=== PATIENT | male | born 1965 | race Caucasian/White ===

== ENCOUNTER → 2020-02-28 08:42 | Outpatient (BNVA) | payer MEDICAID, SELFPAY | PROVIDERS: PCP Family Medicine; Visit Provider Student in an Organized Health Care Education/Training Program | DX: Z76.89 Persons encountering health services in other specified circumstances (principal) ==

== ENCOUNTER 2020-02-29 13:45 | Outpatient (REF) | payer MEDICAID, SELFPAY ==
--- NOTE | 2020-02-29 14:01 | XR_ITS ---
EXAMINATION: XR KNEE, RIGHT XR KNEE, LEFT CLINICAL INFORMATION: Bilateral knee pain. COMPARISON: None TECHNIQUE: 3 views each knee. FINDINGS: RIGHT KNEE: There is no visible acute fracture, dislocation or subluxation. There is loss of medial and patellofemoral compartment joint space with superior patellar spurring. Mild calcification of medial cartilage is noted. No abnormal joint effusion seen. LEFT KNEE: There is mild reduction in medial and patellofemoral compartment joint space with periarticular spurring. No visible acute fracture, dislocation or subluxation seen. No abnormal joint effusion seen. There is superior patella spurring. There are no loose bodies. XR/XR knee LT 3V IMPRESSION: Degenerative changes medial and patellofemoral compartments both knees. No loose bodies, bony erosive changes seen. There is no joint effusion. There is mild chondrocalcinosis medial compartment right knee.
--- NOTE | 2020-02-29 14:01 | XR_ITS ---
EXAMINATION: XR KNEE, RIGHT XR KNEE, LEFT CLINICAL INFORMATION: Bilateral knee pain. COMPARISON: None TECHNIQUE: 3 views each knee. FINDINGS: RIGHT KNEE: There is no visible acute fracture, dislocation or subluxation. There is loss of medial and patellofemoral compartment joint space with superior patellar spurring. Mild calcification of medial cartilage is noted. No abnormal joint effusion seen. LEFT KNEE: There is mild reduction in medial and patellofemoral compartment joint space with periarticular spurring. No visible acute fracture, dislocation or subluxation seen. No abnormal joint effusion seen. There is superior patella spurring. There are no loose bodies. XR/XR knee RT 3V IMPRESSION: Degenerative changes medial and patellofemoral compartments both knees. No loose bodies, bony erosive changes seen. There is no joint effusion. There is mild chondrocalcinosis medial compartment right knee.
[2020-03-04 11:23] LABS: Vitamin D 25-OH, D2 5 ng/mL; Vitamin D 25-OH, D3 30 ng/mL; Vitamin D 25-OH, Total 35 ng/mL (30-100)
== END 2020-02-29 13:46 | disposition home or self-care (01) ==
LOC: HO.LAB 13:45
PROVIDERS: Visit Provider Student in an Organized Health Care Education/Training Program
DX: M25.562 Pain in left knee (principal); M25.561 Pain in right knee; M11.261 Other chondrocalcinosis, right knee
CPT/HCPCS: 73562; 82306

== ENCOUNTER → 2020-04-18 11:26 | Outpatient (BNV) | payer MEDICAID, SELFPAY | PROVIDERS: PCP Nurse Practitioner Family; Visit Provider Internal Medicine | DX: D75.1 Secondary polycythemia (principal); D69.6 Thrombocytopenia, unspecified; Z85.038 Personal history of other malignant neoplasm of large intestine | CPT/HCPCS: 99212; 99213; 99214 ==

== ENCOUNTER → 2020-12-15 12:50 | Outpatient (BNVA) | payer MEDICAID, SELFPAY | PROVIDERS: PCP Family Medicine; Visit Provider Nurse Practitioner Family | DX: M25.50 Pain in unspecified joint (principal) | CPT/HCPCS: 36415; 80053; 99212 ==

== ENCOUNTER 2020-12-15 14:15 | Outpatient (REF) | payer MEDICAID, SELFPAY ==
[2020-12-15 15:07] LABS: Alanine Aminotransferase 60 U/L (0-40); Albumin Level 4.6 g/dL (3.5-5.0); Alkaline Phosphatase 50 U/L (39-117); Anion Gap 13 (12-20); Aspartate Amino Transferase 33 U/L (5-37); Bilirubin Total 0.5 mg/dL (0.0-1.0); Blood Urea Nitrogen 24 mg/dL (9-16); Calcium 9.8 mg/dL (8.4-10.2); Carbon Dioxide 24 mmol/L (22-29); Chloride 106 mmol/L (96-108); Estimated Glomerular Filt Rate > 60; Glucose Random 104 mg/dL (60-115); Potassium 4.3 mmol/L (3.3-5.1); Sodium 139 mmol/L (135-145); Total Protein 7.9 g/dL (6.5-8.0)
== END 2020-12-15 14:16 | disposition home or self-care (01) ==
LOC: HO.LAB 14:15
PROVIDERS: Visit Provider Nurse Practitioner Family
DX: M25.50 Pain in unspecified joint (principal)
CPT/HCPCS: 36415; 80053

== ENCOUNTER 2021-01-06 08:25 | Outpatient (REF) | payer MEDICAID, SELFPAY ==
--- NOTE | ~2021-01-06 | XR_ITS ---
EXAMINATION: XR HAND, RIGHT CLINICAL INFORMATION: Effusion, right hand COMPARISON: 09/19/2019 TECHNIQUE: PA, lateral, and oblique views of the right hand. FINDINGS: There is swelling throughout the hand. Erosion at the tuft of the third digit distal phalanx noted. No additional acute osseous abnormality. No acute fracture. XR/XR hand RT min 3V IMPRESSION: New from prior, there is an erosion at the tip of the tuft of the third digit distal phalanx. Cannot exclude osteomyelitis versus interval posttraumatic change.
--- NOTE | ~2021-01-06 | US_ITS ---
EXAMINATION: US EXTREMITY NONVASCULAR CLINICAL INFORMATION: Right hand effusion. Dorsal right hand. COMPARISON: Concurrent right hand radiographs. TECHNIQUE: Grayscale and Doppler images were obtained through the dorsal aspect of the right hand in the region of the patient's complaint. FINDINGS: No abnormal soft tissue mass or fluid collection. No subcutaneous edema. Unremarkable-appearing muscle noted in the region of the patient's complaint. US/US extremity nonvascular IMPRESSION: Unremarkable examination.
--- NOTE | ~2021-01-06 | US_ITS ---
EXAMINATION: US ABDOMEN COMPLETE CLINICAL INFORMATION: Abnormal results of liver function studies. COMPARISON: Ultrasound abdomen 09/26/2019. CT abdomen and pelvis 01/09/2018. TECHNIQUE: Real-time imaging of the abdominal viscera. FINDINGS: PANCREAS: Normal. ABDOMINAL AORTA: The proximal, mid, and distal segments are normal in caliber. INFERIOR VENA CAVA: Visualized portions are normal. LIVER: The liver is normal in size. The liver contour is normal. Liver echotexture is increased probably representing fatty infiltration. There is a hypoechoic area adjacent to the gallbladder and in the periportal region, characteristic location of focal fatty sparing. No other focal lesion.. There is no intrahepatic biliary duct dilatation seen. GALLBLADDER: Normal. The gallbladder is physiologically distended without evidence of stones, sludge, polyps, wall thickening or pericholecystic fluid. COMMON BILE DUCT: Normal in caliber measuring 0.69 cm in diameter. RIGHT KIDNEY: Normal. No hydronephrosis. No renal calculi or focal parenchymal lesions. The kidney measures 11.8 cm in maximum dimension. LEFT KIDNEY: There is a heterogeneous area superior to the left kidney measuring 4.1 x 3.1 x 3.4 cm questionable for an exophytic renal or adrenal mass. No hydronephrosis or renal calculi. The kidney measures 10.8 cm in maximum dimension. SPLEEN: Normal. The spleen measures 10.8 cm in maximum dimension. FREE FLUID: None. US/US abdomen complete IMPRESSION: Echogenic liver suggestive of fatty infiltration. Newly appreciated 4.1 x 3.1 x 3.4 cm heterogeneous area superior to the left kidney questionable for an exophytic left renal mass or adrenal lesion. Follow-up CT scan recommended.
== END 2021-01-06 08:26 | disposition home or self-care (01) ==
LOC: HO.HMGCX 08:25
PROVIDERS: PCP Nurse Practitioner Family; Visit Provider Nurse Practitioner Family
DX: M25.441 Effusion, right hand (principal); R94.5 Abnormal results of liver function studies
CPT/HCPCS: 73130; 76700; 76882

== ENCOUNTER 2021-01-23 14:09 | Outpatient (REF) | payer MEDICAID, SELFPAY ==
--- NOTE | ~2021-01-23 | MR_ITS ---
EXAMINATION: MRI OF THE RIGHT HAND WITHOUT CONTRAST CLINICAL INFORMATION: Bump on the 1st digit. Evaluate distal 3rd digit. COMPARISON: Hand radiographs dated 01/06/2021 TECHNIQUE: Multiplanar MR imaging was obtained through the right hand without contrast on a 1.5 Marlen magnet. FINDINGS: In the medial and palmar soft tissues at the level of the thumb proximal phalangeal shaft, there is an amorphous focus of low T1 signal intensity and intermediate to low T2 signal intensity measuring 2.2 x 2.1 x 2.4 cm (AP x transverse x longitudinal), located primarily within the medial and palmar subcutaneous fat, though also interposed between the flexor tendon and proximal phalanx, extending into the more lateral subcutaneous fat. Surrounding soft tissues are normal in signal intensity. Subtle chronic osseous remodeling is suspected at the palmar cortex of the proximal phalanx (image 20/43 of series 7). No marrow edema signal or other osseous erosions in this region. No tenosynovitis or tendinosis. The A2 mauricio is slightly stretched as result of the mass. Mild osteoarthritis is evident at the 1st CMC joint with marginal osteophytes. MTP joints appear relatively well preserved. At the tuft of the long finger distal phalanx, there is loss of normal T1 signal (image 14/19 of series 6) in the region of the erosions seen on the prior radiograph. No significant abnormality on T2-weighted images in this region. No additional soft tissue lesions are identified at the hand, though sensitivity is somewhat limited by the absence of intravenous contrast. Additional areas of articular involvement would be difficult to exclude as this process does not appear to produce significant surrounding edema signal on T2-weighted images. MR/MR hand RT wo con IMPRESSION: 1. A 2.4 cm amorphous low signal intensity nodular focus in the medial and palmar soft tissues of the thumb at the level of the proximal phalanx, arising around the tendon sheath. This could correspond to a tenosynovial giant cell tumor based both on the location and signal intensity. Specificity is limited without intravenous contrast. A deposition process such as gout is also on the differential. A fibroma of the tendon sheath could also produce this appearance. Consider correlation with tissue sampling. 2. The focal erosion at the soft tissues of the long finger distal phalanx corresponds to a small focus of low signal intensity as well and is also nonspecific, particularly without intravenous contrast. This could correspond to a deposition process such as gout, a small epidermal inclusion cyst, or chronic changes of prior trauma.
== END 2021-01-23 14:10 | disposition home or self-care (01) ==
LOC: HO.MRI 14:09
PROVIDERS: Visit Provider Nurse Practitioner Family
DX: M85.80 Other specified disorders of bone density and structure, unspecified site (principal)
CPT/HCPCS: 73218

== ENCOUNTER 2021-01-28 15:48 | Outpatient (REF) | payer MEDICAID, SELFPAY ==
[2021-01-28 16:58] LABS: Alanine Aminotransferase 88 U/L (0-40); Albumin Level 4.3 g/dL (3.5-5.0); Alkaline Phosphatase 49 U/L (39-117); Anion Gap 11 (12-20); Aspartate Amino Transferase 42 U/L (5-37); Bilirubin Total 0.5 mg/dL (0.0-1.0); Blood Urea Nitrogen 19 mg/dL (9-16); Calcium 9.5 mg/dL (8.4-10.2); Carbon Dioxide 26 mmol/L (22-29); Chloride 105 mmol/L (96-108); Estimated Glomerular Filt Rate > 60; Glucose Random 91 mg/dL (60-115); Potassium 4.4 mmol/L (3.3-5.1); Sodium 138 mmol/L (135-145); Total Protein 7.6 g/dL (6.5-8.0)
== END 2021-01-28 15:49 | disposition home or self-care (01) ==
LOC: HO.LAB 15:48
PROVIDERS: Visit Provider Nurse Practitioner Family
DX: R74.8 Abnormal levels of other serum enzymes (principal); R93.5 Abnormal findings on diagnostic imaging of other abdominal regions, including retroperitoneum
CPT/HCPCS: 36415; 80053

== ENCOUNTER 2021-02-03 10:33 | Outpatient (REF) | payer MEDICAID, SELFPAY ==
--- NOTE | ~2021-02-03 | CT_ITS ---
EXAMINATION: CT ABDOMEN AND PELVIS WITHOUT AND WITH CONTRAST CLINICAL INFORMATION: Abnormal level of serum enzymes COMPARISON: Previous abdominal ultrasound most recent December [address] of the abdomen and pelvis December 2016 TECHNIQUE: Multidetector volumetric imaging was performed of the abdomen and pelvis before and after the IV administration of 85 mL of Omnipaque 350 intravenous contrast. Sagittal and coronal reformatted images were obtained on the technologist's workstation. This CT examination was performed using dose optimization techniques as appropriate, variously including the following: *Automated exposure control *Adjustment of mA and/or kV according to patient size (this includes techniques or standardized protocols for targeted exams where dose is matched to indication/reason for exam; i.e. extremities or head) *Use of iterative reconstruction technique DLP: 999 mGy-cm FINDINGS: LUNG BASES: The visualized lung bases are unremarkable. LIVER, GALLBLADDER, AND BILIARY TREE: The liver is low in attenuation suggestive of fatty infiltration. Liver is upper normal normal in size and normal in contour. There is no biliary duct dilatation. The gallbladder is normal. PANCREAS: Unremarkable SPLEEN: Unremarkable ADRENAL GLANDS: Unremarkable KIDNEYS AND URETERS: The kidneys are normal in size, shape, and attenuation. No hydronephrosis, hydroureter, or calculi seen. No perinephric stranding. BLADDER: Unremarkable GASTROINTESTINAL TRACT: There are postsurgical changes to the left colon. There is diverticulosis of the colon. Small and large bowel is otherwise unremarkable. The stomach is unremarkable. The appendix is unremarkable. ABDOMINAL WALL: No significant hernia is appreciated. LYMPH NODES: Normal VASCULAR: There is evidence of atherosclerotic disease. No aneurysm is seen. PELVIC VISCERA: Unremarkable OSSEOUS STRUCTURES: There are degenerative changes of the spine. CT/CT abdomen pelvis wo/w con IMPRESSION: Fatty liver. Normal-appearing left kidney and left adrenal gland. No mass. Postsurgical changes to the left colon. Diverticulosis. Fleischner guidelines were followed.
[2021-02-03] MEDS: iohexoL 350 MG/ML 100 ML INFUS..BTL IV (12:26)
== END 2021-02-03 10:34 | disposition home or self-care (01) ==
LOC: HO.CT 10:33
PROVIDERS: Visit Provider Nurse Practitioner Family
DX: R74.8 Abnormal levels of other serum enzymes (principal); R93.5 Abnormal findings on diagnostic imaging of other abdominal regions, including retroperitoneum
CPT/HCPCS: 74178; Q9967

== ENCOUNTER → 2021-02-25 08:50 | Outpatient (BNVA) | payer MEDICAID, SELFPAY | PROVIDERS: PCP Internal Medicine; Visit Provider Orthopaedic Surgery | DX: M79.89 Other specified soft tissue disorders (principal) | CPT/HCPCS: 99202 ==

== ENCOUNTER 2021-03-16 10:45 | Day surgery (SDC) | payer MEDICAID, SELFPAY ==
[2021-03-09 10:46] VITALS: BMI 29.8
--- NOTE | 2021-03-12 10:31 | HO.ANESPROP2 ---
Documented by User: Yoselyn Hale NP 03/12/21 10:34 HPI - Anesthesia Eval Consult details Narrative: 55yo M for Colonoscopy RA - no steroids PMFSH Active Problems Active Problems: All Active Problems (Updated 03/09/21 @ 10:46 by Heidi Collins, THERESE) Colon cancer (Chronic) Bone erosion determined by x-ray (Acute) Elevated liver enzymes (Acute) Abnormal ultrasound of abdomen (Acute) Mass of soft tissue of right upper extremity (Acute) Polyarthralgia (Acute) Past Medical History Medical History Colon cancer Hepatitis C Hx of drug abuse Hypothyroidism Polyarthralgia Polycythemia Rheumatoid arthritis Family History Family History Father Esophageal cancer Mother Uterine cancer Surgical History Surgical History History of colon resection Hx of colonoscopy with polypectomy Hx of dilation of urethra Hx of skin graft Social History Social History Alcohol intake: current Alcohol intake frequency: holidays/special occasions only Patient Tobacco Use Status: Never used Tobacco Substance Use Type: Marijuana Are you DNR?: No Advance Directives: No Advance Directives Information Provided: Yes Advance Directives on File: No 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 Meds Allergies Allergy/AdvReac Type Severity Reaction Status Date / Time No Known Allergies Allergy Mild NKA Verified 03/09/21 10:45 Home Medications Medication Instructions Recorded Confirmed Last Taken Type levothyroxine 150 mcg capsule 150 mcg PO DAILY 02/28/20 03/09/21 Unknown History Exam Exam Date and Time: March 12, 2021 1031 Height,Weight and Vital Signs: Height 5 ft 6 in Weight 83.915 kg Pertinent Lab Results Pertinent Lab Results: Laboratory Tests 04/18/20 01/28/21 11:58 16:06 WBC 5.1 Hgb 16.7 Hct 49.4 Plt Count 129 L Sodium 138 Potassium 4.4 Chloride 105 Carbon Dioxide 26 BUN 19 H Creatinine 0.95 Assessment and Plan Assessment Anesthesia Assessment: Chart Reviewed Documented by User: Brittni Ritchie MD 03/16/21 12:25 PMFSH Past Medical History Medical History Colon cancer Hepatitis C Hx of drug abuse Hypothyroidism Polyarthralgia Polycythemia Rheumatoid arthritis Functional capacity: independent ambulation Family History Family History Father Esophageal cancer Mother Uterine cancer Family history of problems with anesthesia: No Surgical History Surgical History History of colon resection Hx of colonoscopy with polypectomy Hx of dilation of urethra Hx of skin graft History of Problems with Anesthesia: No Social History Social History Alcohol intake: current Alcohol intake frequency: holidays/special occasions only Patient Tobacco Use Status: Never used Tobacco Substance Use Type: Marijuana Are you DNR?: No Advance Directives: No Advance Directives Information Provided: Yes Advance Directives on File: No 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 Meds Allergies Allergy/AdvReac Type Severity Reaction Status Date / Time No Known Allergies Allergy Mild NKA Verified 03/09/21 10:45 Home Medications Medication Instructions Recorded Confirmed Last Taken Type levothyroxine 150 mcg capsule 150 mcg PO DAILY 02/28/20 03/09/21 Unknown History Exam Airway Mallampati Class: II TM Dist: >3cm Neck ROM: Full Heart: RRR Lungs: CTA Assessment and Plan Final Anesthetic Review Family History of Problems with Anesthesia: No History of Problems with Anesthesia: No ASA Class: II Final Preanesthetic Review: No Changes in Pt Med Stat, Meds/Allgs Chart Reviewed, Consent Obtained/Reviewed and Anes Risks/Benef Reviewed Patient Risk: Low Procedure Risk: Low Anesthetic Plan Anesthetic Plan: MAC: Disposition: Standard PACU
[2021-03-16 10:55] VITALS: BP 140/95; PULSE 77; RESP 18; TEMP 36.6; O2SAT 98
[2021-03-16] MEDS: Lactated Ringers 1,000 ML 100 ML IVCONT (11:14)
[2021-03-16 12:45] VITALS: BP 120/78; PULSE 89; RESP 16; TEMP 36.4; O2SAT 95
--- NOTE | 2021-03-16 12:46 | P.BOP_ITS ---
Brief Operative Note Date of Service: 03/16/21 Pre-op diagnosis: Screening, Hx of colon cancer Post-op diagnosis: other (Diverticulosis, Internal hemorrhoids, Normal anastomosis) Procedure: Colonoscopy to the cecum and TI Surgeon: Jessee Bear Anesthesia: MAC Was an [employer]ist[employer] used for this Procedure?: No Estimated blood loss (mL): 0 Pathology: none sent Condition: stable Disposition: PACU
--- NOTE | 2021-03-16 12:46 | HO.POSTANES ---
Post Anesthesia Evaluation Post Anesthesia Evaluation Vital Signs: Vital Signs Temp Pulse Resp BP Pulse Ox 03/16/21 10:55 98 F 77 18 140/95 H 98 Anesthesia: Monitored Mental Status: Awake Pain Control: Satisfactory Nausea/Vomiting: None Hydration: Adequate Anesthesia-Related Issues: No Anes. Related Issues
[2021-03-16 13:00] VITALS: BP 124/81; PULSE 74; RESP 16; TEMP 36.4; O2SAT 96
--- NOTE | 2021-03-16 14:01 | OP_ITS ---
SURGEON: Jessee Bear MD INDICATIONS: The patient presents for followup with personal history of colon cancer and tubular adenoma of the colon. Full consent obtained from him for this, including risks of bleeding and perforation. PREOPERATIVE DIAGNOSIS: POSTOPERATIVE DIAGNOSIS: PROCEDURE PERFORMED: ESTIMATED BLOOD LOSS: COMPLICATIONS: ANESTHESIA: Monitored anesthesia care. ASSISTANTS: SPECIMENS: PROCEDURE: Colonoscopy to the cecum and terminal ileum. PREOPERATIVE DIAGNOSES: Personal history of colon cancer and tubular adenoma of the colon. POSTOPERATIVE DIAGNOSES: Personal history of colon cancer and tubular adenoma of the colon, diverticulosis, normal anastomosis, internal hemorrhoids. DESCRIPTION OF PROCEDURE: The patient was placed in the left lateral decubitus position. The digital rectal exam revealed no abnormalities. The Olympus video pediatric colonoscope was entered into the rectum and advanced easily to the cecum. Once in the cecum, I did identify normal-appearing cecal pouch with appendiceal orifice and a normal-appearing ileocecal valve. The terminal ileum was cannulated and appeared normal. The scope was withdrawn back in the colon. The entire cecum and ileocecal valve appeared normal. The scope was slowly withdrawn assessing all mucosal surfaces carefully. Preparation was excellent. I did not visualize any sign of polyps, colitis, nor angiodysplasia. There was a mild amount of diverticulosis proximal to the anastomosis. The anastomosis at 30 cm, appeared normal. There was some submucosal ink marking noted at 20 cm. I did not visualize any sign of polyps, colitis, nor angiodysplasia. In the rectum, scope was retroflexed visualizing small internal hemorrhoids, but no other pathology. The rectal mucosa appeared normal. The scope was straightened and withdrawn from the patient. He tolerated the procedure well and was returned to recovery area in stable condition. IMPRESSION: 1. Mild diverticulosis. 2. Normal anastomosis. 3. Internal hemorrhoids. PLAN: Given the previous history of colon cancer, I would recommend a repeat colonoscopy in 3 years given that he has had multiple exam since his surgery, which have either been negative or just revealed small tubular adenomas. He was advised to see me in 1 year for followup in regard to the previous hepatitis C. Recent laboratories revealed a negative hepatitis C viral load and almost completely normal liver profile. MD SHELBY Milian/ANAIS / [id number]
== END 2021-03-16 14:25 | disposition home or self-care (01) ==
PROVIDERS: Visit Provider Internal Medicine
PROC: 0DJD8ZZ Inspection of Lower Intestinal Tract, Via Natural or Artificial Opening Endoscopic (ICD-10-PCS; CPT 45378; principal; 2021-03-16 11:30)
DX: Z12.11 Encounter for screening for malignant neoplasm of colon (principal); Z86.010 Personal history of colon polyps; Z85.038 Personal history of other malignant neoplasm of large intestine; K57.30 Diverticulosis of large intestine without perforation or abscess without bleeding; K64.8 Other hemorrhoids; K59.00 Constipation, unspecified; Z98.0 Intestinal bypass and anastomosis status; Z90.49 Acquired absence of other specified parts of digestive tract; E03.9 Hypothyroidism, unspecified; M79.7 Fibromyalgia; M06.9 Rheumatoid arthritis, unspecified; R79.89 Other specified abnormal findings of blood chemistry; Z86.19 Personal history of other infectious and parasitic diseases; Z79.899 Other long term (current) drug therapy
CPT/HCPCS: 45378

== ENCOUNTER → 2021-04-14 14:37 | Outpatient (BNVA) | payer MEDICAID, SELFPAY | PROVIDERS: Visit Provider Orthopaedic Surgery | DX: M79.89 Other specified soft tissue disorders (principal) | CPT/HCPCS: 99212 ==

== ENCOUNTER 2021-04-16 06:57 | Day surgery (SDC) | payer MEDICAID, SELFPAY ==
[2021-04-10 11:20] VITALS: BMI 30.4
--- NOTE | 2021-04-15 08:59 | HO.ANESPROP2 ---
Documented by User: Yoselyn Hale NP 04/15/21 09:09 HPI - Anesthesia Eval Consult details Narrative: 55yo M for Right Thumb Excisional Mass biopsy RA, ? rx PMFSH Active Problems Active Problems: All Active Problems (Updated 04/08/21 @ 17:24 by Melodie Sharp MD) Colon cancer (Chronic) Bone erosion determined by x-ray (Acute) Elevated liver enzymes (Acute) Abnormal ultrasound of abdomen (Acute) Mass of soft tissue of right upper extremity (Acute) Polyarthralgia (Acute) Past Medical History Medical History Colon cancer Hepatitis C Hx of drug abuse Hx of pilonidal cyst Hypothyroidism Polyarthralgia Polycythemia Rheumatoid arthritis Family History Family History Father Esophageal cancer Mother Uterine cancer Family history of problems with anesthesia: No Surgical History Surgical History History of colon resection Hx of colonoscopy Hx of colonoscopy with polypectomy Hx of dilation of urethra Hx of skin graft History of Problems with Anesthesia: No Social History Social History Household Members: Family Housing: House Are you a primary insurance healthcare representative to a significant other at home: No Do you presently have visiting nurse or other home services: No Alcohol intake: current Alcohol intake frequency: holidays/special occasions only Patient Tobacco Use Status: Never used Tobacco Use of substances other than those prescribed or required for medical reasons: No Substance Use Type: Marijuana Are you DNR?: No Advance Directives: No Advance Directives Information Provided: Yes service: No Current occupational status: employed 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 Meds Allergies Allergy/AdvReac Type Severity Reaction Status Date / Time No Known Allergies Allergy Mild NKA Verified 04/16/21 07:33 Home Medications Medication Instructions Recorded Confirmed Last Taken Type levothyroxine 150 mcg capsule 150 mcg PO DAILY 02/28/20 04/16/21 04/16/21 History Exam Exam Date and Time: April 15, 2021 0859 Height,Weight and Vital Signs: Height 5 ft 6 in Weight 85.729 kg Pertinent Lab Results Pertinent Lab Results: Laboratory Tests 01/28/21 04/08/21 04/08/21 16:06 14:54 14:54 WBC 5.0 Hgb 15.4 Hct 46.4 Plt Count 132 L Sodium 141 Potassium 3.9 Chloride 109 H Carbon Dioxide 27 BUN 16 Creatinine 0.94 Calcium 9.5 Total Bilirubin 0.5 AST 42 H ALT 88 H Alkaline Phosphatase 49 Total Protein 7.6 Albumin 4.3 Assessment and Plan Assessment Anesthesia Assessment: Chart Reviewed Final Anesthetic Review Family History of Problems with Anesthesia: No History of Problems with Anesthesia: No Documented by User: Jasen Trevino MD 04/16/21 12:35 PMFSH Past Medical History Medical History Colon cancer Hepatitis C Hx of drug abuse Hx of pilonidal cyst Hypothyroidism Polyarthralgia Polycythemia Rheumatoid arthritis Family History Family History Father Esophageal cancer Mother Uterine cancer Surgical History Surgical History History of colon resection Hx of colonoscopy Hx of colonoscopy with polypectomy Hx of dilation of urethra Hx of skin graft Social History Social History Household Members: Family Housing: House Are you a primary insurance healthcare representative to a significant other at home: No Do you presently have visiting nurse or other home services: No Alcohol intake: current Alcohol intake frequency: holidays/special occasions only Patient Tobacco Use Status: Never used Tobacco Use of substances other than those prescribed or required for medical reasons: No Substance Use Type: Marijuana Are you DNR?: No Advance Directives: No Advance Directives Information Provided: Yes service: No Current occupational status: employed 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 Meds Allergies Allergy/AdvReac Type Severity Reaction Status Date / Time No Known Allergies Allergy Mild NKA Verified 04/16/21 07:33 Home Medications Medication Instructions Recorded Confirmed Last Taken Type levothyroxine 150 mcg capsule 150 mcg PO DAILY 02/28/20 04/16/21 04/16/21 History Exam Airway Mallampati Class: II TM Dist: >3cm Neck ROM: Full Loose/Missing/Broken Teeth: Yes Assessment and Plan Assessment Anesthesia Assessment: Anesthesia Plan Discussed Final Anesthetic Review NPO: Yes ASA Class: III Final Preanesthetic Review: No Changes in Pt Med Stat, Meds/Allgs Chart Reviewed, Consent Obtained/Reviewed and Anes Risks/Benef Reviewed Patient Risk: Intermediate Procedure Risk: Low Anesthetic Plan Anesthetic Plan: GA and Regional Block Disposition: Standard PACU
[2021-04-16] VITALS (7 sets, daily range): BP systolic 122–133; BP diastolic 75–86; PULSE 66–96; RESP 16–19; TEMP 36.7; O2SAT 94–99
[2021-04-16] MEDS: Lactated Ringers 1,000 ML 100 ML IVCONT (08:02)
--- NOTE | 2021-04-16 08:05 | MHC.SHP ---
Pre-Procedural Eval Section A Date of Service: 04/16/21 The patient is an INPATIENT: No Changes since office visit: No Cold of Flu in the past 2 weeks, No New Medical Problems, No Changes in Medication and No Patient answered all questions The History & Physical has been completed within 30 days and I have reviewed it.: Yes Section B Chief Complaint: soft tissue disorder Allergies: Allergies Allergy/AdvReac Type Severity Reaction Status Date / Time No Known Allergies Allergy Mild NKA Verified 04/16/21 07:33 Plan I have reviewed the history and physical and performed a pertinent physical examination on my patient. No changes have occurred unless specified.
--- NOTE | 2021-04-16 08:05 | W.PM.OPN ---
Operative Note Operative Note Date of Service: 04/16/21 Narrative: Operative Note Narrative: Preop diagnosis: 1. Right thumb soft tissue mass Postop diagnosis: Same Procedure: Right thumb soft tissue mass excisional biopsy, Surgeon: Asha Bianchi MD Anesthesia: General plus regional block Findings: Calles colored multi lobular soft tissue mass measuring approximately 2.5 cm by 2.0 cm by 0.9 cm sent for histopathology. It was found to pass beneath the FPL tendon and between the FPL tendon and the proximal phalanx of the right thumb extending from the dorsal radial aspect of the thumb around volarly to the dorsal ulnar aspect of the thumb. 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 The risks and benefits of operative treatment, including but not limited to risk of damage to blood vessels, nerves, tendons, infection, recurrence, persistent pain or numbness, incomplete resolution of preoperative symptoms, or need for further surgery were discussed with the patient and they wished to proceed with surgery. Procedure: Once consent was obtained patient was brought back to the operating suite and placed in the operating table in a supine position. . Perioperative antibiotics and anesthesia was administered by the anesthesia team. A tourniquet was applied to the proximal aspect of the right upper extremity and the limb was prepped and draped in a standard surgical fashion. The limb was elevated exsanguinated with Esmarch bandage and the tourniquet inflated to 250 mm of mercury for a total tourniquet time of 35 minutes. A Herminia is a type incision was made over the volar aspect of the patient's right thumb. The incision was made through the skin the subcutaneous tissues using a 15. Blade. Careful dissection was then made down to the level of the soft tissue mass with care being taken to protect the radial and digital neurovascular structures. A proximal volar projection of the hand rubbery soft tissue mass was noted just volar and ulnar to the FPL tendon sheath. This was carefully dissected from the surrounding tissues in a distal to proximal direction. Care was taken to protect the ulnar neurovascular bundle. There was a significant portion of the mass that passed ulnar to the FPL tendon and the proximal phalanx to the dorsal aspect of the thumb. This was carefully dissected free from the surrounding tissues. The mass also extended and was sitting deep to the FPL tendon beneath the FPL tendon and the proximal phalanx. It is connected to another portion of the calles rubbery mass that was radial to the FPL tendon and projecting dorsally as well. I then carefully dissected the more radial portion of the mass from the soft tissues. This then allowed me to pull the majority of this beneath the FPL tendon to the ulnar side of the FPL tendon. The more ulnar portion of the mass was then further dissected from the soft tissues and the mass was removed from the patient and placed on the back table to be sent for histopathology. The mass could have come from the flexor tendon sheath on the deep side of the tendon sheath, or perhaps from the IP joint, deep to the FPL tendon as fair amount of the mass did appear to be beneath the FPL tendon up against the IP joint. further evaluated this area of the thumb and did not see any additional portions of the mass. At this point the tourniquet was deflated and hemostasis obtained with a brief period of local pressure and bipolar electrocautery. The wound was copiously irrigated with normal saline. The skin edges were reapproximated with 5-0 nylon suture. The wound was infiltrated with 0.5% plain Marcaine for postop pain control and a sterile dressing was applied. splint The patient appears to have tolerated the procedure well and with no complications. All digits were well vascularized conclusion of the case.
== END 2021-04-16 13:07 | disposition home or self-care (01) ==
PROVIDERS: Visit Provider Orthopaedic Surgery
PROC: (CPT 26111; principal; 2021-04-16 09:10)
DX: M79.89 Other specified soft tissue disorders (principal); D21.11 Benign neoplasm of connective and other soft tissue of right upper limb, including shoulder; M06.9 Rheumatoid arthritis, unspecified; M25.50 Pain in unspecified joint; D75.1 Secondary polycythemia; E03.9 Hypothyroidism, unspecified; F12.90 Cannabis use, unspecified, uncomplicated; Z85.038 Personal history of other malignant neoplasm of large intestine; Z86.19 Personal history of other infectious and parasitic diseases; Z87.898 Personal history of other specified conditions
CPT/HCPCS: 26111; 88307; J0690; J2250; J3010

== ENCOUNTER → 2021-04-29 14:31 | Outpatient (BNVA) | payer MEDICAID, SELFPAY | PROVIDERS: Visit Provider Orthopaedic Surgery | DX: Z48.3 Aftercare following surgery for neoplasm (principal); D48.1 Neoplasm of uncertain behavior of connective and other soft tissue | CPT/HCPCS: 99212 ==

== ENCOUNTER → 2021-06-15 13:24 | Outpatient (BNVA) | payer MEDICAID, SELFPAY | PROVIDERS: PCP Internal Medicine; Visit Provider Nurse Practitioner Family | DX: M25.50 Pain in unspecified joint (principal); R74.8 Abnormal levels of other serum enzymes; D48.1 Neoplasm of uncertain behavior of connective and other soft tissue; Z85.038 Personal history of other malignant neoplasm of large intestine | CPT/HCPCS: 99212 ==

== ENCOUNTER → 2021-12-14 14:50 | Outpatient (BNVA) | payer MEDICAID, SELFPAY | PROVIDERS: PCP Internal Medicine; Visit Provider Internal Medicine Rheumatology | DX: M79.7 Fibromyalgia (principal); M19.041 Primary osteoarthritis, right hand; M19.042 Primary osteoarthritis, left hand; M17.0 Bilateral primary osteoarthritis of knee | CPT/HCPCS: 99212 ==

== ENCOUNTER → 2022-04-22 10:29 | Outpatient (BNVA) | payer MEDICAID, SELFPAY | PROVIDERS: PCP Internal Medicine; Visit Provider Internal Medicine Rheumatology | DX: M17.0 Bilateral primary osteoarthritis of knee (principal); M19.041 Primary osteoarthritis, right hand; M19.042 Primary osteoarthritis, left hand; M79.7 Fibromyalgia; M54.50 Low back pain, unspecified; G89.29 Other chronic pain; Z96.652 Presence of left artificial knee joint | CPT/HCPCS: 36415; 72100; 73610; 85652; 86140; 99212 ==

== ENCOUNTER 2022-04-22 12:11 | Outpatient (REF) | payer MEDICAID, SELFPAY ==
--- NOTE | ~2022-04-22 | XR_ITS ---
EXAMINATION: XR ANKLE, RIGHT CLINICAL INFORMATION: Pain. COMPARISON: None TECHNIQUE: AP, lateral, and mortise views of the right ankle. FINDINGS: Bony alignment and mineralization are normal. The ankle mortise is intact. An old, healed fracture is seen of the lateral malleolus. There is a well-corticated chronic avulsion fragment arising from the medial malleolus. No fracture, dislocation or right ankle joint effusion is seen. Boehler's angle is normal. There are small posterior and plantar calcaneal spurs. No focal soft tissue swelling, gas or foreign body is seen. XR/XR ankle LT min 3V IMPRESSION: 1. No fracture, dislocation or right ankle joint effusion is seen. 2. There are calcaneal spurs, as detailed. EXAMINATION: XR ANKLE, LEFT CLINICAL INFORMATION: Pain. COMPARISON: None TECHNIQUE: AP, lateral, and mortise views of the left ankle. FINDINGS: Bony alignment and mineralization are normal. The ankle mortise is intact. No fracture, dislocation or left ankle joint effusion seen. Boehler's angle is normal. There are small posterior and moderate plantar calcaneal spurs. There is ossification of the plantar fascia. No focal soft tissue swelling, gas or foreign body is seen. IMPRESSION: 1. No fracture, dislocation or left ankle joint effusion is seen. 2. There are calcaneal spurs, as detailed.
--- NOTE | ~2022-04-22 | XR_ITS ---
EXAMINATION: XR ANKLE, RIGHT CLINICAL INFORMATION: Pain. COMPARISON: None TECHNIQUE: AP, lateral, and mortise views of the right ankle. FINDINGS: Bony alignment and mineralization are normal. The ankle mortise is intact. An old, healed fracture is seen of the lateral malleolus. There is a well-corticated chronic avulsion fragment arising from the medial malleolus. No fracture, dislocation or right ankle joint effusion is seen. Boehler's angle is normal. There are small posterior and plantar calcaneal spurs. No focal soft tissue swelling, gas or foreign body is seen. XR/XR ankle RT min 3V IMPRESSION: 1. No fracture, dislocation or right ankle joint effusion is seen. 2. There are calcaneal spurs, as detailed. EXAMINATION: XR ANKLE, LEFT CLINICAL INFORMATION: Pain. COMPARISON: None TECHNIQUE: AP, lateral, and mortise views of the left ankle. FINDINGS: Bony alignment and mineralization are normal. The ankle mortise is intact. No fracture, dislocation or left ankle joint effusion seen. Boehler's angle is normal. There are small posterior and moderate plantar calcaneal spurs. There is ossification of the plantar fascia. No focal soft tissue swelling, gas or foreign body is seen. IMPRESSION: 1. No fracture, dislocation or left ankle joint effusion is seen. 2. There are calcaneal spurs, as detailed.
--- NOTE | ~2022-04-22 | XR_ITS ---
EXAMINATION: XR LUMBOSACRAL SPINE CLINICAL INFORMATION: Lower back pain. COMPARISON: None TECHNIQUE: AP and lateral views of the lumbar spine and lateral view of the lumbosacral junction. FINDINGS: Vertebral body heights are normal. At L3-L4 and L4-L5, there is a 3 mm retrolistheses. At L5-S1, there is moderately severe degenerative disc disease. No acute fracture or spondylolisthesis is seen. There is multi-level thoracolumbar spondylosis. The posterior elements are intact. There is degenerative disc disease at L5-S1. There are aortic atherosclerotic calcifications. XR/XR lumbar spine 2-3V IMPRESSION: 1. There is mild degenerative disc disease at L3-L4 and L4-L5, and moderately severe degenerative disc disease is seen at L5-S1. 2. There is multi-level thoracolumbar spondylosis. 3. There is facet arthropathy at L5-S1.
[2022-04-22 13:59] LABS: C Reactive Protein 0.11 mg/dL (< or = 0.50)
[2022-04-22 14:36] LABS: Erythrocyte Sedimentation Rate 7 MM/HR (0-15)
== END 2022-04-22 12:12 | disposition home or self-care (01) ==
LOC: HO.10HDL 12:11
PROVIDERS: PCP Internal Medicine; Visit Provider Internal Medicine Rheumatology
DX: M25.572 Pain in left ankle and joints of left foot (principal); M25.571 Pain in right ankle and joints of right foot; M54.50 Low back pain, unspecified; M19.041 Primary osteoarthritis, right hand; M19.042 Primary osteoarthritis, left hand; M17.11 Unilateral primary osteoarthritis, right knee; M79.7 Fibromyalgia; Z96.652 Presence of left artificial knee joint
CPT/HCPCS: 36415; 72100; 73610; 85652; 86140

== ENCOUNTER → 2022-06-08 11:36 | Outpatient (BNVA) | payer MEDICAID, SELFPAY | PROVIDERS: PCP Internal Medicine; Visit Provider Internal Medicine Rheumatology | DX: M17.0 Bilateral primary osteoarthritis of knee (principal); M47.816 Spondylosis without myelopathy or radiculopathy, lumbar region; M79.7 Fibromyalgia; Z96.652 Presence of left artificial knee joint | CPT/HCPCS: 99212 ==

== ENCOUNTER 2022-08-30 07:59 | Outpatient (REF) | payer MEDICAID, SELFPAY | END 2022-08-30 08:00 | disposition home or self-care (01) | LOC: HO.US 07:59 | PROVIDERS: PCP Internal Medicine; Visit Provider Internal Medicine | DX: Z13.89 Encounter for screening for other disorder (principal) ==

== ENCOUNTER 2022-09-01 08:54 | Outpatient (REF) | payer MEDICAID, SELFPAY ==
--- NOTE | ~2022-09-01 | US_ITS ---
EXAMINATION: US COMPLETE ABDOMEN WITH LIVER ELASTOGRAPHY CLINICAL INFORMATION: Parasitic disease. Abnormal liver enzymes. Hepatic fibrosis. COMPARISON: Previous CT of the abdomen and pelvis January 2021 and abdominal ultrasound December 2020. TECHNIQUE: Real-time imaging of the abdominal viscera. Noninvasive ultrasound liver fibrosis assessment is performed using Arslan ElastPQ point quantification shear wave elastography (2D-SWE) with a C5-2 MHz transducer. Multiple elastography samples are obtained. FINDINGS: PANCREAS: The visualized pancreatic head and body are normal in appearance. The remainder of the pancreas is obscured from visualization by the overlying bowel gas. ABDOMINAL AORTA: The proximal, middle, and distal aortic segments are normal in caliber. INFERIOR VENA CAVA: Visualized portions are normal. LIVER: Liver echotexture is increased probably representing fatty infiltration. The liver is slightly enlarged. Liver contour is normal. There is a hypoechoic area adjacent to the gallbladder, characteristic location of focal fatty sparing. No biliary duct dilatation or other focal liver lesion. The right lobe measures 20 cm in length. The left lobe measures 13 cm in length. Portal flow is normal/hepatopedal. Shear wave liver elastography median stiffness is 1.5 m/s (reference: normal median stiffness is 1.3 m/s or less). IQR/median stiffness to assess sampling precision is 0.05 (reference: good quality data set is IQR/median stiffness of 0.15 or less). GALLBLADDER: Normal. The gallbladder is physiologically distended without evidence of stones, sludge, polyps, wall thickening or pericholecystic fluid. COMMON BILE DUCT: Normal in caliber measuring 0.5 cm in diameter. RIGHT KIDNEY: Normal. No hydronephrosis. No renal calculi or focal parenchymal lesions. The kidney measures 11 cm in maximum dimension. LEFT KIDNEY: Stable appearance to the upper pole of the left kidney from December 2020 exam with heterogeneous area exophytic to the upper pole questionable for lobulation versus renal or adrenal lesion. No corresponding abnormality was seen on follow-up CT January 2021. No hydronephrosis. No renal calculi. The kidney measures 11.5 cm in maximum dimension. SPLEEN: Normal. The spleen measures 10.7 cm in maximum dimension. FREE FLUID: None. US/US abdomen comp w elastography IMPRESSION: 1. Enlarged echogenic liver suggestive of fatty infiltration. Similar appearance to left kidney. Limited visualization of the tail of the pancreas. 2. Liver elastography: Adequate sampling. In the absence of other known clinical signs, rules out compensated advanced chronic liver disease. REFERENCE: Society of Radiologists in Ultrasound Liver Stiffness Thresholds (2020): LIVER STIFFNESS THRESHOLDS: *Liver Stiffness equal or less than 1.3 m/s: High probability of being normal. *Liver Stiffness less than 1.7 m/s: In the absence of other known clinical signs, rules out compensated advanced chronic liver disease. *Liver Stiffness 1.7-2.1 m/s: Suggestive of compensated advanced chronic liver disease but need further test for confirmation. *Liver Stiffness over 2.1 m/s: Rules in compensated advanced chronic liver disease. *Liver Stiffness over 2.4 m/s: Suggestive of clinically significant portal hypertension. QUALITY OF DATA SET: *IQR/Median value equal or less than 0.15 implies a quality data set. *IQR/Median value over 0.15 implies a poor quality data set. SIGNIFICANT CHANGE FROM PRIOR EXAM: Significant change if liver stiffness measurement is 10% or greater from prior exam. OTHER CONSIDERATIONS: The stage of liver fibrosis may be overestimated in the setting of acute hepatitis, liver inflammation, elevated liver function tests, hepatic vascular congestion, obstructive cholestasis, non-fasting state, and infiltrative diseases such as amyloidosis and lymphoma. In some patients with NAFLD, the liver stiffness thresholds for compensated advanced chronic liver disease may be lower. In causes other than viral hepatitis and NAFLD, liver stiffness thresholds are not well established.
== END 2022-09-01 08:55 | disposition home or self-care (01) ==
LOC: HO.US 08:54
PROVIDERS: PCP Internal Medicine; Visit Provider Internal Medicine
DX: R74.8 Abnormal levels of other serum enzymes (principal); K74.00 Hepatic fibrosis, unspecified; Z86.19 Personal history of other infectious and parasitic diseases
CPT/HCPCS: 76705; 76981

== ENCOUNTER 2022-11-23 09:54 | Outpatient (AMB) | payer MEDICAID, SELFPAY ==
--- NOTE | 2022-11-23 10:29 | A.OFFVIS_ITS ---
Intake Vital Signs 11/23/22 10:34 Height 5 ft 6 in Weight 203 lb 0.732 oz BMI 32.8 BP 128/90 H Blood Pressure Location Lt brachial Position Sitting Pulse 58 Pulse Source Pulse Oximeter Temp 97.7 F Temp Source Skin Pulse Oximetry (%) 98 Oxygen Delivery Method Room Air Intake Visit Reasons: OA/FM Intake Note: Patient here to follow up on OA/FM. 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 The visit is facilitated through the [employer] translating service. He has had a left total knee replacement. There is also osteoarthritis in his lumbar spine and hands. He remains on diclofenac 75 mg twice a day and occasional baclofen for muscle spasm. These medications seem to be somewhat helpful however he does report fairly widespread pains that bother him more in the evenings and in the afternoons. These areas of pain include the neck, shoulder, knee, elbow, wrist and foot pain. He has low titer positive rheumatoid factor. PFSH Medical History Hx of pilonidal cyst Rheumatoid arthritis Polycythemia Colon cancer Hx of drug abuse Hypothyroidism Hepatitis C Polyarthralgia Surgical History History of left knee replacement Hx of colonoscopy Hx of colonoscopy with polypectomy History of colon resection (~12/2021) Hx of skin graft Hx of dilation of urethra Family History Father Esophageal cancer Mother Uterine cancer Social History Household Members: Family Housing: House Are you a primary career technical education teacher to a significant other at home: No Do you presently have visiting nurse or other home services: No Alcohol intake: current Alcohol intake frequency: holidays/special occasions only Patient Tobacco Use Status: Never used Tobacco Substance Use Type: Marijuana service: No Current occupational status: employed 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 Negative for appetite change, weight change, fever, chills, malaise Eyes Details: Occasional headache. Negative for vision change, dry eyes and dizziness GI Details: Negative indigestion/heartburn, nausea, abdominal pain, bowel changes, diarrhea, constipation and bloody stool. Skin/Breast Details: Negative for itching, rash, hives, Raynaud's symptoms, sun sensitivity, and skin cancer Neuro Details: He gets some intermittent hand paresthesias in the right side. This is occurring only at night. It started about 6 weeks ago. Negative for epilepsy, palsy, stroke, changes in speech and weakness Endo Details: Negative for polyuria and polydypsia Delbert/Lymph Details: Negative for excessive bruising or bleeding. Physical Exam Vital Signs: Last Vital Signs Temp 97.7 F 11/23/22 10:34 Pulse 58 11/23/22 10:34 BP 128/90 H 11/23/22 10:34 Pulse Ox 98 11/23/22 10:34 Oxygen Delivery Method Room Air 11/23/22 10:34 BMI result Body Mass Index 32.8 APPEARANCE: Patient in no acute distress EYES no redness, pupils equal and reactive to light, eyelids normal Cervical Spine:? Mild pain with extremes of motion.? Mild cervical muscle tende rness. Thoracic Spine:? No scoliosis.? No tenderness on palpation. Lumbar Spine:? Alignment normal.? Mild pain with flexion at 60 degrees or any attempted hyperextension.? There is mild paraspinal muscle tenderness. Chest Wall:.? No tenderness, swelling, increased warmth or erythema. Hands:? Right: there is no tenderness or swelling in the MCP joints appreciated..? There is mild bony enlargement at the thumb IP in the PIP joints.? These joints have some mild tenderness.? There is no thenar atrophy or sensory loss.? Left:? No MCP tenderness or swelling.? Slight bony enlargement and mild tenderness at the thumb IP, 2nd 3rd PIP of the 2nd PIP.? These areas are slightly tender.? No thenar atrophy or sensory loss. Wrists: ? no pain with extremes of flexion or extension.? There is no tenderness, swelling, increased warmth or erythema. Negative Phalen's and Tinel signs. Elbows:? Normal pain-free range of motion.? Slight lateral epicondylar tenderness without swelling or tenderness over the joint spaces. Shoulders:.? No pain with extremes of normal range of motion with some mild anterior tenderness.? No axillary adenopathy, abductor weakness, swelling, increased warmth or erythema. Hips:.? Right:? Slight discomfort in the lateral hip with extremes of abduction.? No groin pain with motion.? Left: Mild pain felt laterally with the extremes of abduction, internal rotation, or external rotation.? No groin pain with motion.? Hip bursa:.? No tenderness. Knees:? Right:? Mild pain with full extension or flexion beyond 90 degrees.? Most the pain is on the medial aspect where he was mild medial compartment tenderness.? There is no redness or effusion.? There is mild patellofemoral crepitus without any popliteal tenderness or swelling.? Left:? Mild discomfort with extremes of range of motion.? There is a well-healed anterior scar.? The soft tissues are a bit thickened but not indurated, red or warm.? There is some slight medial tenderness.? There is no popliteal tenderness or swelling. Ankles:? Right:? There is pain-free AP motion and slight discomfort with extremes of inversion and eversion.? Inversion and eversion are somewhat limited.? There is some surgical scar, well healed on the lateral aspect.? There is no soft tissue swelling or redness.? Left:? There is mild pain with extremes of normal range of motion with some mild tenderness without redness or?swelling. Feet:? Right joint Mild 1st MTP bony enlargement with mild tenderness but no soft tissue swelling.??There is mild?tenderness in the instep without swelling.? The mild 1st MTP bony enlargement without tenderness.? There is some burn type scars on the skin but no soft tissue swelling or redness. Tender points:? Mild tenderness to digital palpation at the occiput, trapezius, second rib, lateral epicondyle, knees, greater trochanter and gluteal area bilaterally. ? Results Reviewed Results Reviewed: Apr 2022 lab: ESR 7 crp .11 Assessment & Plan Assessment & Plan (1) Osteoarthritis of lumbar spine: Code(s): M47.816 - Spondylosis without myelopathy or radiculopathy, lumbar region (2) History of knee replacement procedure of left knee: Code(s): Z96.652 - Presence of left artificial knee joint (3) Numbness of right hand: Code(s): R20.0 - Anesthesia of skin (4) Osteoarthritis of hands, bilateral: Code(s): M19.041 - Primary osteoarthritis, right hand; M19.042 - Primary osteoarthritis, left hand (5) Osteoarthritis of knees, bilateral: Comment: Left tkr 12/2021 Code(s): M17.0 - Bilateral primary osteoarthritis of knee (6) Fibromyalgia: Code(s): M79.7 - Fibromyalgia Plan In spite of the positive rheumatoid factor I do not see any signs of an active inflammatory arthritis. He does have degenerative arthritis evident on his hands. The right hand numbness suggests early carpal tunnel syndrome. I did print out a prescription for wrist brace to use if he can get his insurance coverage on it. He should use it nightly to see if that gets rid of the nighttime hand paresthesias. The other widespread pains and many tender points of course are consistent with some fibromyalgia. We will see if we can cautiously add some gabapentin 100 mg, 1-3 tablets at bedtime. I do not think he wants to take it on a regular basis but he could use it on an as-needed basis if he is very uncomfortable at night. He will stay with the diclofenac. A follow-up in 4 months seems reasonable. Today's visit reviewing his history, exam and explaining about osteoarthritis and fibromyalgia took 34 minutes. Medications: New gabapentin 100 - 300 mg (1 - 3 x 100 mg) PO BEDTIME 90 caps 3RF M79.7 - Fibromyalgia arm brace (Wrist Brace) use at night as directed 1 ea 0RF R20.0 - Anesthesia of skin Coding Level of Care Code Est Pt Level 4 (29227) Diagnoses Osteoarthritis of lumbar spine M47.816 History of knee replacement procedure of left knee Z96.652 Numbness of right hand R20.0 Osteoarthritis of hands, bilateral M19.041; M19.042 Osteoarthritis of knees, bilateral M17.0 Fibromyalgia M79.7
[2022-11-23 10:34] VITALS: BP 128/90; PULSE 58; TEMP 36.5; O2SAT 98; BMI 32.8
== END 2022-11-23 11:18 | disposition home or self-care (01) ==
PROVIDERS: PCP Internal Medicine; Visit Provider Internal Medicine Rheumatology
DX: M47.816 Spondylosis without myelopathy or radiculopathy, lumbar region (principal); Z96.652 Presence of left artificial knee joint; R20.0 Anesthesia of skin; M19.041 Primary osteoarthritis, right hand; M19.042 Primary osteoarthritis, left hand; M17.0 Bilateral primary osteoarthritis of knee; M79.7 Fibromyalgia
CPT/HCPCS: 99214

== ENCOUNTER → 2022-11-23 09:54 | Outpatient (BNVA) | payer MEDICAID, SELFPAY | PROVIDERS: PCP Internal Medicine; Visit Provider Internal Medicine Rheumatology | DX: M47.816 Spondylosis without myelopathy or radiculopathy, lumbar region (principal); R20.0 Anesthesia of skin; M19.041 Primary osteoarthritis, right hand; M19.042 Primary osteoarthritis, left hand; M17.0 Bilateral primary osteoarthritis of knee; M79.7 Fibromyalgia; Z96.652 Presence of left artificial knee joint | CPT/HCPCS: 99212 ==

== ENCOUNTER 2023-04-07 10:24 | Outpatient (AMB) | payer MEDICAID, SELFPAY ==
[2023-04-07 10:35] VITALS: BP 126/88; PULSE 59; TEMP 36; O2SAT 97; BMI 31.8
--- NOTE | 2023-04-07 10:35 | A.OFFVIS_ITS ---
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 Ferreira, presents today for follow up and test results. c/o right shoulder pain and limited ROM x 1 mo Requesting diclofenac gel refill Hydrostatic Tester Required: No Hydrostatic Tester Name: Ambika [id number] Information Interpreted: non-clinical & clinical Accompanied by: Self / Same As Patient Allergies No Known Allergies Allergy (Mild, Verified 04/07/23 10:38) NKA HPI HPI Comments History of Present Illness Details Mr. Richard, 57 yo M returns for follow-up of his osteoarthritis, last seen 11/2022. The visit is facilitated through the Fwd[employer] translating service. He has had a left total knee replacement about 1 year ago and it continues to do well. There is also osteoarthritis in his lumbar spine and hands. He remains on diclofenac 75 mg twice a day and occasional baclofen for muscle spasm. These medications seem to be somewhat helpful however he does report fairly widespread pains that bother him more in the evenings and in the afternoons. These areas of pain include the neck, shoulder, knee, elbow, wrist and foot pain. He has low titer positive rheumatoid factor but does not usually have joint swelling. He says his pain levels have gotten a lot better since he changed his diet and had his left knee replaced. Today is main problem is with the right shoulder. 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-) Elevated uric acid in blood Decreased ROM of right shoulder Chronic right shoulder pain Hx of pilonidal cyst Rheumatoid arthritis Polycythemia Colon cancer Hx of drug abuse Hypothyroidism Hepatitis C Polyarthralgia Surgical History History of left knee replacement Hx of colonoscopy Hx of colonoscopy with polypectomy History of colon resection (~12/2021) Hx of skin graft Hx of dilation of urethra Family History Father Esophageal cancer Mother Uterine cancer Social History Household Members: Family Housing: House Are you a primary dialysis patient care technician to a significant other at home: No Do you presently have visiting nurse or other home services: No Alcohol intake: current Alcohol intake frequency: holidays/special occasions only Patient Tobacco Use Status: Never used Tobacco Substance Use Type: Marijuana service: No Current occupational status: employed 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 Review of Systems Const All systems reviewed & are unremarkable except as noted in HPI and below Physical Exam Vital Signs: Last Vital Signs Temp 96.8 F 04/07/23 10:35 Pulse 59 04/07/23 10:35 BP 126/88 04/07/23 10:35 Pulse Ox 97 04/07/23 10:35 Oxygen Delivery Method Room Air 04/07/23 10:35 BMI result Body Mass Index 31.8 APPEARANCE: Patient in no acute distress EYES no redness, eyelids normal Cervical Spine:? Mild pain with extremes of motion.? Mild cervical muscle tenderness. Thoracic Spine:? No scoliosis.? No tenderness on palpation. Lumbar Spine:? Alignment normal.? Mild pain with flexion at 60 degrees or any attempted hyperextension.? There is mild paraspinal muscle tenderness. Chest Wall:.? No tenderness, swelling, increased warmth or erythema. Hands:? Right: there is no tenderness or swelling in the MCP joints appreciated..? There is mild bony enlargement at the thumb IP in the PIP joints.? These joints have some mild tenderness.? There is no thenar atrophy or sensory loss.? Left:? No MCP tenderness or swelling.? Slight bony enlargement and mild tenderness at the thumb IP, 2nd 3rd PIP of the 2nd PIP.? These areas are slightly tender.? No thenar atrophy or sensory loss. Wrists: ? no pain with extremes of flexion or extension.? There is no tenderness, swelling, increased warmth or erythema. Negative Phalen's and Tinel signs. Elbows:? Normal pain-free range of motion.? Slight lateral epicondylar tenderness without swelling or tenderness over the joint spaces. Shoulders:.?Right: Limited ROM cannot extend past 90 degrees has tenderness on palpation along the joint line and subacromial space. Left No pain with extremes of normal range of motion with some mild anterior tenderness.? No axillary adenopathy, abductor weakness, swelling, increased warmth or erythema. Hips:.? Right:? Slight discomfort in the lateral hip with extremes of abduction.? No groin pain with motion.? Left: Mild pain felt laterally with the extremes of abduction, internal rotation, or external rotation.? No groin pain with motion.? Hip bursa:.? No tenderness. Knees:? Right:? Mild pain with full extension or flexion beyond 90 degrees.? Most the pain is on the medial aspect where he was mild medial compartment tenderness.? There is no redness or effusion.? There is mild patellofemoral crepitus without any popliteal tenderness or swelling.? Left:? Mild discomfort with extremes of range of motion.? There is a well-healed anterior scar.? The soft tissues are a bit thickened but not indurated, red or warm.? There is some slight medial tenderness.? There is no popliteal tenderness or swelling. Ankles:? Right:? There is pain-free AP motion and slight discomfort with extremes of inversion and eversion.? Inversion and eversion are somewhat limited.? There is some surgical scar, well healed on the lateral aspect.? There is no soft tissue swelling or redness.? Left:? There is mild pain with extremes of normal range of motion with some mild tenderness without redness or?swelling. Feet:? Right joint Mild 1st MTP bony enlargement with mild tenderness but no soft tissue swelling.??There is mild?tenderness in the instep without swelling.? The mild 1st MTP bony enlargement without tenderness.? There is some burn type scars on the skin but no soft tissue swelling or redness. Tender points:? Mild tenderness to digital palpation at the occiput, trapezius, second rib, lateral epicondyle, knees, greater trochanter and gluteal area ramon aterally. ? Office Procedures Joint Injection/Drain Joint Injection/Drain Primary Site: right shoulder Prep: site was prepped using aseptic technique and injection warnings given Injected: 80 mg of, Kenalog, with 1 mL of, 1% plain lidocaine and in the joint Approach Used: anterior Procedure: The patient tolerated the procedure well Coding - Large joint Procedure code (CPT) selection complete Results Reviewed Results Reviewed: Apr 2022 lab: ESR 7 crp .11 EXAMINATION: MRI OF THE RIGHT HAND WITHOUT CONTRAST CLINICAL INFORMATION: Bump on the 1st digit. Evaluate distal 3rd digit. COMPARISON: Hand radiographs dated 01/06/2021 TECHNIQUE: Multiplanar MR imaging was obtained through the right hand without contrast on a 1.5 Marlen magnet. FINDINGS: In the medial and palmar soft tissues at the level of the thumb proximal phalangeal shaft, there is an amorphous focus of low T1 signal intensity and intermediate to low T2 signal intensity measuring 2.2 x 2.1 x 2.4 cm (AP x transverse x longitudinal), located primarily within the medial and palmar subcutaneous fat, though also interposed between the flexor tendon and proximal phalanx, extending into the more lateral subcutaneous fat. Surrounding soft tissues are normal in signal intensity. Subtle chronic osseous remodeling is suspected at the palmar cortex of the proximal phalanx (image 20/43 of series 7). No marrow edema signal or other osseous erosions in this region. No tenosynovitis or tendinosis. The A2 mauricio is slightly stretched as result of the mass. Mild osteoarthritis is evident at the 1st CMC joint with marginal osteophytes. MTP joints appear relatively well preserved. At the tuft of the long finger distal phalanx, there is loss of normal T1 signal (image 14/19 of series 6) in the region of the erosions seen on the prior radiograph. No significant abnormality on T2-weighted images in this region. No additional soft tissue lesions are identified at the hand, though sensitivity is somewhat limited by the absence of intravenous contrast. Additional areas of articular involvement would be difficult to exclude as this process does not appear to produce significant surrounding edema signal on T2-weighted images. MR/MR hand RT wo con IMPRESSION: 1. A 2.4 cm amorphous low signal intensity nodular focus in the medial and palmar soft tissues of the thumb at the level of the proximal phalanx, arising around the tendon sheath. This could correspond to a tenosynovial giant cell tumor based both on the location and signal intensity. Specificity is limited without intravenous contrast. A deposition process such as gout is also on the differential. A fibroma of the tendon sheath could also produce this appearance. Consider correlation with tissue sampling. 2. The focal erosion at the soft tissues of the long finger distal phalanx corresponds to a small focus of low signal intensity as well and is also nonspecific, particularly without intravenous contrast. This could correspond to a deposition process such as gout, a small epidermal inclusion cyst, or chronic changes of prior trauma. EXAMINATION: XR KNEE, RIGHT XR KNEE, LEFT CLINICAL INFORMATION: Bilateral knee pain. COMPARISON: None TECHNIQUE: 3 views each knee. FINDINGS: RIGHT KNEE: There is no visible acute fracture, dislocation or subluxation. There is loss of medial and patellofemoral compartment joint space with superior patellar spurring. Mild calcification of medial cartilage is noted. No abnormal joint effusion seen. LEFT KNEE: There is mild reduction in medial and patellofemoral compartment joint space with periarticular spurring. No visible acute fracture, dislocation or subluxation seen. No abnormal joint effusion seen. There is superior patella spurring. There are no loose bodies. XR/XR knee LT 3V IMPRESSION: Degenerative changes medial and patellofemoral compartments both knees. No loose bodies, bony erosive changes seen. There is no joint effusion. There is mild chondrocalcinosis medial compartment right knee. FINDINGS: Bony alignment and mineralization are normal. The ankle mortise is intact. An old, healed fracture is seen of the lateral malleolus. There is a well-corticated chronic avulsion fragment arising from the medial malleolus. No fracture, dislocation or right ankle joint effusion is seen. Boehler's angle is normal. There are small posterior and plantar calcaneal spurs. No focal soft tissue swelling, gas or foreign body is seen. XR/XR ankle LT min 3V IMPRESSION: 1. No fracture, dislocation or right ankle joint effusion is seen. 2. There are calcaneal spurs, as detailed. EXAMINATION: XR ANKLE, LEFT CLINICAL INFORMATION: Pain. COMPARISON: None TECHNIQUE: AP, lateral, and mortise views of the left ankle. FINDINGS: Bony alignment and mineralization are normal. The ankle mortise is intact. No fracture, dislocation or left ankle joint effusion seen. Boehler's angle is normal. There are small posterior and moderate plantar calcaneal spurs. There is ossification of the plantar fascia. No focal soft tissue swelling, gas or foreign body is seen. IMPRESSION: 1. No fracture, dislocation or left ankle joint effusion is seen. 2. There are calcaneal spurs, as detailed. FINDINGS: Vertebral body heights are normal. At L3-L4 and L4-L5, there is a 3 mm retrolistheses. At L5-S1, there is moderately severe degenerative disc disease. No acute fracture or spondylolisthesis is seen. There is multi-level thoracolumbar spondylosis. The posterior elements are intact. There is degenerative disc disease at L5-S1. There are aortic atherosclerotic calcifications. XR/XR lumbar spine 2-3V IMPRESSION: 1. There is mild degenerative disc disease at L3-L4 and L4-L5, and moderately severe degenerative disc disease is seen at L5-S1. 2. There is multi-level thoracolumbar spondylosis. 3. There is facet arthropathy at L5-S1. Assessment & Plan Assessment & Plan (1) Decreased ROM of right shoulder: Code(s): M25.611 - Stiffness of right shoulder, not elsewhere classified (2) Chronic right shoulder pain: Code(s): M25.511 - Pain in right shoulder; G89.29 - Other chronic pain (3) Elevated uric acid in blood: Code(s): E79.0 - Hyperuricemia without signs of inflammatory arthritis and tophaceous disease (4) Osteoarthritis of lumbar spine: Code(s): M47.816 - Spondylosis without myelopathy or radiculopathy, lumbar region Qualifiers: Spinal osteoarthritis complication: without myelopathy or radiculopathy Qualified Code(s): M47.816 - Spondylosis without myelopathy or radiculopathy, lumbar region (5) Osteoarthritis of hands, bilateral: Code(s): M19.041 - Primary osteoarthritis, right hand; M19.042 - Primary osteoarthritis, left hand Qualifiers: Osteoarthritis type: primary Qualified Code(s): M19.041 - Primary osteoarthritis, right hand; M19.042 - Primary osteoarthritis, left hand (6) Osteoarthritis of knees, bilateral: Comment: Left tkr 12/2021 Code(s): M17.0 - Bilateral primary osteoarthritis of knee Qualifiers: Osteoarthritis type: primary Qualified Code(s): M17.0 - Bilateral primary osteoarthritis of knee Plan #Right Shoulder Pain/OA: In spite of the positive rheumatoid factor , the patient was not thought to have of an active inflammatory arthritis. However, reviewing his past diagnostics, labs and xrays, it is possible he has had episodes of gout. Xrays suggest erosions with gout in the differential and there is one record of elevated uric acid levels. He is quite active at work and the shoulder pain has been bothersome - very tender on palpation, with reduce ROM. I think it is reasonable and have given a corticosteroid injection today. The patient is instructed to limit strenuous activities for the next 3 days. Given the description of his tasks at work, I think it best he refrains from work for today and tomorrow. I will give him a letter to this effect. I will also obtain an xray to assess the extent of any OA or other pathology of the shoulder. #OA to Multiple Joints: He does have degenerative arthritis evident on his hands, Spine and Knees. For this, he will continue with the diclofenac 75mg BID oral and topical gel PRN. The other widespread pains and many tender points of course are consistent with some fibromyalgia. He takes gabapentin 100 mg, 1-3 tablets at bedtime. He does not take it on a regular basis but uses it on an as-needed basis if he is very uncomfortable at night. #Elevated Uric Acid: Will obtain updated labs. A follow-up in 4 months seems reasonable. Today's visit reviewing his history, exam and documenting took 34 minutes. Orders: Orders XR shoulder RT min 2V Today G89.29 - Other chronic pain, M25.511 - Pain in right shoulder, M25.611 - Stiffness of right shoulder, not elsewhere classified Erythrocyte Sedimentation Rate Today E79.0 - Hyperuricemia without signs of inflammatory arthritis and tophaceous disease, G89.29 - Other chronic pain, M25.511 - Pain in right shoulder Uric Acid Today E79.0 - Hyperuricemia without signs of inflammatory arthritis and tophaceous disease, G89.29 - Other chronic pain, M25.511 - Pain in right shoulder C Reactive Protein Today E79.0 - Hyperuricemia without signs of inflammatory arthritis and tophaceous disease, G89.29 - Other chronic pain, M25.511 - Pain in right shoulder Complete Blood Count Auto Diff Today E79.0 - Hyperuricemia without signs of inflammatory arthritis and tophaceous disease, G89.29 - Other chronic pain, M25.511 - Pain in right shoulder, Z79.899 - Other skilled nursing (current) drug therapy Comprehensive Met. Panel Today E79.0 - Hyperuricemia without signs of inflammatory arthritis and tophaceous disease, G89.29 - Other chronic pain, M25.511 - Pain in right shoulder AMB Joint Injection/Aspiration Today G89.29 - Other chronic pain, M25.511 - Pain in right shoulder Coding Level of Care Code Est Pt Level 4 (77963) Diagnoses Decreased ROM of right shoulder M25.611 Chronic right shoulder pain M25.511; G89.29 Elevated uric acid in blood E79.0 Spondylosis of lumbar region without myelopathy or radiculopathy M47.816 Spinal osteoarthritis complication: without myelopathy or radiculopathy Primary osteoarthritis of both hands M19.041; M19.042 Osteoarthritis type: primary Primary osteoarthritis of both knees M17.0 Osteoarthritis type: primary CPT Codes Coding - 00998 Large joint: 79198 - Large joint ([id number])
== END 2023-04-07 11:20 | disposition home or self-care (01) ==
PROVIDERS: PCP Internal Medicine; Visit Provider Nurse Practitioner Family
DX: M25.611 Stiffness of right shoulder, not elsewhere classified (principal); M25.511 Pain in right shoulder; G89.29 Other chronic pain; E79.0 Hyperuricemia without signs of inflammatory arthritis and tophaceous disease; M47.816 Spondylosis without myelopathy or radiculopathy, lumbar region; M19.041 Primary osteoarthritis, right hand; M19.042 Primary osteoarthritis, left hand; M17.0 Bilateral primary osteoarthritis of knee
CPT/HCPCS: 20610; 99214

== ENCOUNTER → 2023-04-07 10:24 | Outpatient (BNVA) | payer MEDICAID, SELFPAY | PROVIDERS: PCP Internal Medicine; Visit Provider Nurse Practitioner Family | DX: M25.611 Stiffness of right shoulder, not elsewhere classified (principal); M25.511 Pain in right shoulder; M19.041 Primary osteoarthritis, right hand; M19.042 Primary osteoarthritis, left hand; M17.0 Bilateral primary osteoarthritis of knee; M47.816 Spondylosis without myelopathy or radiculopathy, lumbar region; E79.0 Hyperuricemia without signs of inflammatory arthritis and tophaceous disease; G89.29 Other chronic pain | CPT/HCPCS: 20610; 99212 ==

== ENCOUNTER 2023-04-07 11:29 | Outpatient (REF) | payer MEDICAID, SELFPAY ==
--- NOTE | ~2023-04-07 | XR_ITS ---
EXAMINATION: XR SHOULDER, RIGHT CLINICAL INFORMATION: Right shoulder pain COMPARISON: None available. TECHNIQUE: AP external rotation, Grashey, scapular Y, and axillary views of the right shoulder. FINDINGS: Acromioclavicular joint space narrowing. Glenohumeral joint is maintained. No fracture or dislocation. Visualized right lung and ribs are unremarkable. XR/XR shoulder RT min 2V IMPRESSION: Mild degenerative change.
[2023-04-07 13:52] LABS: MANUAL DIFF FLAG NO
[2023-04-07 13:59] LABS: Basophils Absolute Auto 0.1 X10*3/uL (0.0-0.2); Basophils Percent Auto 1.3 % (0-2); Eosinophils Absolute Auto 0.1 X10*3/uL (0.0-0.4); Hematocrit 47.3 % (42.0-52.0); Hemoglobin 15.5 g/dl (14.0-18.0); Imm Gran Abs Auto 0.01 X10*3/uL (0.00-0.03); Imm Gran Pct Auto 0.2 % (0.0-0.4); Lymphocytes Absolute Auto 1.8 X10*3/uL (1.2-4.9); Lymphocytes Percent Auto 38.3 % (20-40); Mean Corpuscular HGB Conc 32.8 g/dl (31.0-36.0); Mean Corpuscular Hemoglobin 28.4 pg (27.0-33.0); Mean Corpuscular Volume 86.8 fL (80.0-98.0); Mean Platelet Volume 12.4 fL (9.4-12.4); Monocytes Absolute Auto 0.6 X10*3/uL (0.1-1.2); Monocytes Percent Auto 12.1 % (2-11); Neutrophils Absolute Auto 2.1 x10*3/uL (2.0-8.3); Neutrophils Percent Auto 45.1 % (45-73); Platelet Count 146 X10*3/uL (160-400); Red Blood Count 5.45 X10*6/uL (4.60-5.80); Red Cell Distribution Width 12.5 % (11.0-16.0); White Blood Count 4.6 X10*3/uL (4.8-10.8)
[2023-04-07 14:06] LABS: Alanine Aminotransferase 64 U/L (0-40); Albumin Level 4.2 g/dL (3.5-5.0); Alkaline Phosphatase 49 U/L (39-117); Anion Gap 11 (12-20); Aspartate Amino Transferase 38 U/L (5-37); Bilirubin Total 0.7 mg/dL (0.0-1.0); Blood Urea Nitrogen 18 mg/dL (9-16); C Reactive Protein < 0.10 mg/dL (< or = 0.50); Calcium 9.6 mg/dL (8.4-10.2); Carbon Dioxide 24 mmol/L (22-29); Chloride 107 mmol/L (96-108); Estimated Glomerular Filt Rate > 60; Glucose Random 86 mg/dL (60-115); Potassium 4.2 mmol/L (3.3-5.1); Sodium 138 mmol/L (135-145); Total Protein 7.8 g/dL (6.5-8.0); Uric Acid 6.8 mg/dL (3.4-7.0)
[2023-04-07 14:43] LABS: Erythrocyte Sedimentation Rate 8 MM/HR (0-15)
== END 2023-04-07 11:30 | disposition home or self-care (01) ==
LOC: HO.10HDL 11:29
PROVIDERS: Visit Provider Nurse Practitioner Family
DX: M25.511 Pain in right shoulder (principal); G89.29 Other chronic pain; M25.611 Stiffness of right shoulder, not elsewhere classified; E79.0 Hyperuricemia without signs of inflammatory arthritis and tophaceous disease; Z79.899 Other long term (current) drug therapy
CPT/HCPCS: 20610; 36415; 73030; 80053; 84550; 85025; 85652; 86140; 99212

== ENCOUNTER 2023-05-06 11:09 | Outpatient (REF) | payer MEDICAID, SELFPAY ==
--- NOTE | ~2023-05-06 | XR_ITS ---
EXAMINATION: XR SHOULDER, RIGHT CLINICAL INFORMATION: Acute right shoulder pain. COMPARISON: None available. TECHNIQUE: AP external rotation, Grashey, scapular Y, and axillary views of the right shoulder. FINDINGS: There is mild loss of right AC joint space. There is no visible acute fracture, dislocation or subluxation seen. The soft tissues are normal. XR/XR shoulder RT min 2V IMPRESSION: Mild degenerative changes right AC joint. No visible acute fracture or dislocation seen.
== END 2023-05-06 11:10 | disposition home or self-care (01) ==
LOC: HO.HHCX 11:09
PROVIDERS: Visit Provider Registered Nurse
DX: M25.511 Pain in right shoulder (principal)
CPT/HCPCS: 73030

== ENCOUNTER 2023-06-24 11:14 | Outpatient (REF) | payer MEDICAID, SELFPAY ==
[2023-06-24 15:25] LABS: Alanine Aminotransferase 39 U/L (0-40); Albumin Level 4.2 g/dL (3.5-5.0); Alkaline Phosphatase 55 U/L (39-117); Anion Gap 11 (12-20); Aspartate Amino Transferase 28 U/L (5-37); Blood Urea Nitrogen 26 mg/dL (9-16); Calcium 9.5 mg/dL (8.4-10.2); Carbon Dioxide 26 mmol/L (22-29); Chloride 107 mmol/L (96-108); Cholesterol 155 mg/dL (<200); Estimated Glomerular Filt Rate > 60; Glucose Random 83 mg/dL (60-115); HDL Cholesterol 36 mg/dL (>40); LDL Cholesterol Calculated 108 mg/dL (<100); Sodium 140 mmol/L (135-145); Total Protein 7.7 g/dL (6.5-8.0); Triglycerides 59 mg/dL (<150)
[2023-06-24 15:31] LABS: TSH reflex Free T4 1.06 uIU/mL (0.32-4.0)
== END 2023-06-24 11:15 | disposition home or self-care (01) ==
LOC: HO.CHCLDS 11:14
PROVIDERS: Visit Provider Internal Medicine
DX: I10 Essential (primary) hypertension (principal); E03.9 Hypothyroidism, unspecified
CPT/HCPCS: 36415; 80053; 80061; 84443

== ENCOUNTER 2023-11-23 10:53 | Outpatient (REF) | payer MEDICAID, SELFPAY ==
[2023-11-23 14:03] LABS: Hematocrit 46.6 % (42.0-52.0); Hemoglobin 15.6 g/dl (14.0-18.0); Mean Corpuscular HGB Conc 33.5 g/dl (31.0-36.0); Mean Corpuscular Hemoglobin 28.8 pg (27.0-33.0); Mean Platelet Volume 11.8 fL (9.4-12.4); Platelet Count 115 X10*3/uL (160-400); Red Blood Count 5.42 X10*6/uL (4.60-5.80); Red Cell Distribution Width 13.3 % (11.0-16.0); White Blood Count 4.4 X10*3/uL (4.8-10.8)
[2023-11-23 14:27] LABS: Estimated Average Glucose 105 mg/dL; Hemoglobin A1c % 5.3 % (<6.0)
[2023-11-23 14:43] LABS: Alanine Aminotransferase 29 U/L (0-40); Albumin Level 4.1 g/dL (3.5-5.0); Alkaline Phosphatase 51 U/L (39-117); Anion Gap 12 (12-20); Aspartate Amino Transferase 26 U/L (5-37); Bilirubin Direct 0.3 mg/dL (0.0-0.5); Blood Urea Nitrogen 23 mg/dL (9-16); Calcium 9.3 mg/dL (8.4-10.2); Carbon Dioxide 23 mmol/L (22-29); Chloride 108 mmol/L (96-108); Cholesterol 171 mg/dL (<200); Estimated Glomerular Filt Rate > 60; Glucose Fasting 98 mg/dL (60-99); HDL Cholesterol 39 mg/dL (>40); LDL Cholesterol Calculated 117 mg/dL (<100); Potassium 3.8 mmol/L (3.3-5.1); Sodium 139 mmol/L (135-145); Total Protein 7.4 g/dL (6.5-8.0); Triglycerides 76 mg/dL (<150)
== END 2023-11-23 10:54 | disposition home or self-care (01) ==
LOC: HO.CHCLDS 10:53
PROVIDERS: PCP Internal Medicine; Referring Provider Student in an Organized Health Care Education/Training Program; Visit Provider Student in an Organized Health Care Education/Training Program
DX: I10 Essential (primary) hypertension (principal)
CPT/HCPCS: 36415; 80048; 80061; 80076; 83036; 85027

== ENCOUNTER 2023-12-16 08:39 | Outpatient (REF) | payer OTHER, SELFPAY ==
--- NOTE | ~2023-12-16 | US_ITS ---
EXAMINATION: US COMPLETE ABDOMEN WITH LIVER ELASTOGRAPHY CLINICAL INFORMATION: Hepatitis C with liver fibrosis. COMPARISON: Ultrasound abdomen 09/01/2022. TECHNIQUE: Real-time imaging of the abdominal viscera. Noninvasive ultrasound liver fibrosis assessment is performed using Arslan ElastPQ point quantification shear wave elastography (pSWE) with a C5-2 MHz transducer. Multiple elastography samples are obtained. FINDINGS: PANCREAS: The visualized pancreas appears unremarkable but the pancreatic tail is obscured by bowel gas. ABDOMINAL AORTA: The proximal and middle aorta is of normal caliber. The distal aorta was obscured by bowel gas. INFERIOR VENA CAVA: Visualized portions are normal. LIVER: The liver demonstrates increased echogenicity consistent with hepatic steatosis. No focal lesion or intrahepatic biliary duct dilatation. The right lobe measures 16.1 cm in length. The left lobe measures 11.0 cm in length. Portal flow is towards the liver (hepatopetal). Shear wave liver elastography median stiffness is 1.83 m/s (previously 1.49 m/s) (reference: normal median stiffness is 1.3 m/s or less). IQR/median stiffness to assess sampling precision is 0.13 (previously 0.05) (reference: good quality data set is IQR/median stiffness of 0.15 or less). GALLBLADDER: The gallbladder is physiologically distended without evidence of stones, sludge, polyps, wall thickening or pericholecystic fluid. COMMON BILE DUCT: Normal in caliber measuring 0.8 cm in diameter. RIGHT KIDNEY: No hydronephrosis. There is a lower pole echogenic focus which may represent a nonobstructing calculus. No other renal calculi or focal parenchymal lesions. The kidney measures 10.9 cm in maximum dimension. LEFT KIDNEY: Normal. No renal calculi. No hydronephrosis. No focal parenchymal lesions. The kidney measures 10.8 cm in maximum dimension. SPLEEN: Normal. The spleen measures 11.8 cm in maximum dimension. FREE FLUID: None. US/US abdomen comp w elastography IMPRESSION: 1. Echogenic liver consistent with steatosis. 2. Liver Elastography: Measurements are consistent with compensated advanced chronic liver disease. When compared with prior exam, there is a statistically significant increase in liver stiffness (increase at least 10%). REFERENCE: Society of Radiologists in Ultrasound Liver Stiffness Thresholds (2019): LIVER STIFFNESS THRESHOLDS: *Liver Stiffness equal or less than 1.3 m/s: High probability of being normal. *Liver Stiffness less than 1.7 m/s: In the absence of other known clinical signs, rules out compensated advanced chronic liver disease. *Liver Stiffness 1.7-2.1 m/s: Suggestive of compensated advanced chronic liver disease but need further test for confirmation. *Liver Stiffness over 2.1 m/s: Rules in compensated advanced chronic liver disease. *Liver Stiffness over 2.4 m/s: Suggestive of clinically significant portal hypertension. QUALITY OF DATA SET: *IQR/Median value equal or less than 0.15 implies a quality data set. *IQR/Median value over 0.15 implies a poor quality data set. SIGNIFICANT CHANGE FROM PRIOR EXAM: Significant change if liver stiffness measurement is 10% or greater from prior exam. OTHER CONSIDERATIONS: The stage of liver fibrosis may be overestimated in the setting of acute hepatitis, liver inflammation, elevated liver function tests, hepatic vascular congestion, obstructive cholestasis, non-fasting state, and infiltrative diseases such as amyloidosis and lymphoma. In some patients with NAFLD, the liver stiffness thresholds for compensated advanced chronic liver disease may be lower. In causes other than viral hepatitis and NAFLD, liver stiffness thresholds are not well established. Electronically signed by: Grey Canas MD 02/16/2024 10:57 PM [facility]
[2023-12-16 08:58] LABS: MANUAL DIFF FLAG NO
[2023-12-16 09:30] LABS: Basophils Percent Auto 0.8 % (0-2); Eosinophils Absolute Auto 0.2 X10*3/uL (0.0-0.4); Eosinophils Percent Auto 3.1 % (0-4); Hematocrit 44.2 % (42.0-52.0); Hemoglobin 14.9 g/dl (14.0-18.0); Imm Gran Abs Auto 0.01 X10*3/uL (0.00-0.03); Imm Gran Pct Auto 0.2 % (0.0-0.4); Lymphocytes Absolute Auto 1.6 X10*3/uL (1.2-4.9); Lymphocytes Percent Auto 30.6 % (20-40); Mean Corpuscular HGB Conc 33.7 g/dl (31.0-36.0); Mean Corpuscular Volume 86.2 fL (80.0-98.0); Mean Platelet Volume 11.7 fL (9.4-12.4); Monocytes Absolute Auto 0.7 X10*3/uL (0.1-1.2); Monocytes Percent Auto 13.2 % (2-11); Neutrophils Absolute Auto 2.7 x10*3/uL (2.0-8.3); Neutrophils Percent Auto 52.1 % (45-73); Platelet Count 122 X10*3/uL (160-400); Red Blood Count 5.13 X10*6/uL (4.60-5.80); Red Cell Distribution Width 12.7 % (11.0-16.0); White Blood Count 5.2 X10*3/uL (4.8-10.8)
[2023-12-16 09:32] LABS: Prothrombin Time 11.3 SEC (10.9-12.4)
[2023-12-16 11:22] LABS: Alanine Aminotransferase 28 U/L (0-40); Albumin Level 4.1 g/dL (3.5-5.0); Alkaline Phosphatase 48 U/L (39-117); Aspartate Amino Transferase 23 U/L (5-37); Bilirubin Direct 0.3 mg/dL (0.0-0.5); Bilirubin Total 0.8 mg/dL (0.0-1.0); Total Protein 7.4 g/dL (6.5-8.0)
[2023-12-21 11:03] LABS: Alpha Fetoprotein 2.1 ng/mL (<6.1)
[2023-12-23 02:14] LABS: FIB-ALT 25 U/L (9-46); FIB-Alpha-2-Macroglobulin 310 mg/dL (106-279); FIB-Apolipoprotein A1 141 mg/dL (94-176); FIB-GGT 20 U/L (3-85); FIB-Haptoglobin 118 mg/dL (43-212); FIB-Total Bilirubin 0.6 mg/dL (0.2-1.2); Liver Fibrosis Score 0.48; Liver Fibrosis Stage F1-F2; Nec Inflam Act Grade A0; Nec Inflam Act Score 0.14; Reference ID 5146255
== END 2023-12-16 08:40 | disposition home or self-care (01) ==
LOC: HO.US 08:39
PROVIDERS: PCP Internal Medicine; Visit Provider Internal Medicine
DX: K74.00 Hepatic fibrosis, unspecified (principal); Z86.19 Personal history of other infectious and parasitic diseases
CPT/HCPCS: 36415; 76700; 76981; 80076; 81596; 82105; 85025; 85610

== ENCOUNTER 2024-02-17 14:54 | Outpatient (AMB) | payer OTHER, SELFPAY ==
[2024-02-17 15:01] VITALS: BP 124/62; PULSE 67; O2SAT 98; BMI 29.2
--- NOTE | 2024-02-17 15:01 | MHC.OFFVIS ---
Vital Signs 02/17/24 15:01 Height 5 ft 6 in Weight 180 lb 12.465 oz BMI 29.2 BP 124/62 Blood Pressure Location Lt brachial Position Sitting Pulse 67 Pulse Source Pulse Oximeter Pulse Oximetry (%) 98 Oxygen Delivery Method Room Air Intake Visit Reasons: Chronic right shoulder pain Elevated uric acid/lm Intake Note: Patient presents today for follow up on chronic right shoulder pain and elevated uric acid. He was last seen in the office by Princess Torres on 04/07/23. Patient complains of bilateral shoulder pain today and elbows. Patient states with the condition has has fibromyalgia, and is experiencing cramps, he can't sleep well at night. He did have surgery in his right knee, too. Patient is a colon cancer survivor, too. Relief Captain Name: Deya [phone] Allergies No Known Allergies Allergy (Mild, Verified 02/17/24 15:04) NKA Medication List - Last Reconciled 02/17/24 by Maria T Robles MD arm brace (Wrist Brace) use at night as directed baclofen 10 mg PO BEDTIME blood pressure test kit-large As directed diclofenac sodium 75 mg PO BID PRN diclofenac sodium 1% 1 g topical DAILY PRN ibuprofen (Motrin IB) 400 mg PO Q8H levothyroxine 125 mcg PO DAILY losartan 100 mg PO DAILY HPI Comments Details: Patient is a 58-year-old male with hypertension, hypothyroidism, polyarticular osteoarthritis and fibromyalgia here today for follow up Interval History: Patient last seen 04/07/2023. With Princess Torres. At that time given his positive RF he was given a trial of Prednisone. Today patient states that the prednisone did not help him He continues to have pain and he states that he feels like he is getting worse Worse pain right now is in his bilateral shoulders Rheumatologic History: Diagnosed with fibromyalgia and osteoarthritis Has a positive RF but no evidence of inflammatory arthritis on examination Current Rheumatology Medication(s): Baclofen 10 mg PFSH Medical History (Updated 02/17/24 @ 17:00 by Maria T Robles MD) Colon cancer Osteoarthritis of shoulders, bilateral Elevated uric acid in blood Decreased ROM of right shoulder Chronic right shoulder pain Hx of pilonidal cyst Rheumatoid arthritis Polycythemia Colon cancer Hx of drug abuse Hypothyroidism Hepatitis C Polyarthralgia Surgical History (Updated 02/17/24 @ 15:41 by Maria T Robles MD) History of knee replacement procedure of left knee History of left knee replacement Hx of colonoscopy Hx of colonoscopy with polypectomy History of colon resection (~12/2021) Hx of skin graft Hx of dilation of urethra Family History Father Esophageal cancer Mother Uterine cancer Social History Household Members: Family Housing: House Are you a primary medicare insurance specialist to a significant other at home: No Do you presently have visiting nurse or other home services: No Alcohol intake: current Alcohol intake frequency: holidays/special occasions only Patient Tobacco Use Status: Never used Tobacco Substance Use Type: Marijuana service: No Current occupational status: employed 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 Review of Systems Const Details: Review of Systems Constitutional: Denies fever, chills, weight loss ENT: Denies vision changes, eye pain or eye redness, dental caries, dry mouth GI: Denies nausea, vomiting, diarrhea, abdominal pain, change in BM Pulm: Denies SOB, PEREIRA, hemoptysis, wheezing Cards: Denies chest pain, palpitations Skin: Denies Raynaud's, rash, nail changes, photosensitivity, WOOD MODEL MAKER: Denies headaches, weakness, paresthesias, recurrent falls MSK: as per HPI All other systems reviewed and are unremarkable except noted above Physical Exam Vital Signs: Last Vital Signs Pulse 67 02/17/24 15:01 BP 124/62 02/17/24 15:01 Pulse Ox 98 02/17/24 15:01 Oxygen Delivery Method Room Air 02/17/24 15:01 BMI result Body Mass Index 29.2 Physical Examination CONSTITUITIONAL Patient alert and cooperative. Well appearing and in no apparent painful distress HEENT Conjunctiva and sclera clear. ?Pupils equal round and reactive to light. ? CHEST/RESPIRATORY SYSTEM Normal respiratory effort and able to speak in complete sentences. ?Clear to auscultation bilaterally. ?No crackles, rales, rhonchi, wheezes heard. CARDIAC SYSTEM Regular rate and rhythm. ?S1 and S2 heard no murmurs. ?Radial pulses intact bilaterally MSK Hands: ?Good director of first impressions strength bilaterally - 5/5. ?No deformities noted. ?No synovitis noted to the MCPs, PIPs or DIPs. ?Mild tenderness to palpation of the MCPs without evidence of synovitis Wrists: ?Full range of motion at the wrists without pain. ?Mild tenderness to do wish to palpation without evidence of synovitis Elbows: Full range of motion without pain. No tenderness, weakness, swelling, increased warmth or erythema. Shoulders: Tenderness to palpation of the AC joint bilaterally Hips: Full range of motion without pain. Hip bursa: No tenderness to palpation Knees: ?Full range of motion. ?No tenderness, swelling, increased warmth or erythema.?No effusion or crepitations Ankles: Full range of motion. ?No tenderness, swelling, increased warmth or erythema.? Feet: ?Negative squeeze test. ?No tenderness to palpation or swelling of the MTPs. Tender points:??No tenderness to palpation of the neck, shoulders, chest, elbows, hips, buttocks or knees. SKIN Skin intact without rashes. Office Procedures AMB Joint Injection/Aspiration Joint Injection/Aspiration Details: Procedure was explained to the patient and consent was obtained. ? The area of interest was identified and confirmed with patient. ?This was subsequently cleaned with chlorhexidine x3. ? The area was then anesthetized using ethyl chloride spray. 40 mg Kenalog with 1 cc 1% lidocaine was injected without issue. ?Minimal to no bleeding. ?Patient tolerated procedure. Primary Site: right shoulder Prep: site was prepped using aseptic technique and ethochloride spray was applied Injected: 40 mg of, Kenalog, with 1 mL of and 1% plain lidocaine Approach Used: other Procedure: The patient tolerated the procedure well Coding - Acromioclavicular Procedure code (CPT) selection complete AMB Joint Injection/Aspiration Joint Injection/Aspiration Details: Procedure was explained to the patient and consent was obtained. ? The area of interest was identified and confirmed with patient. ?This was subsequently cleaned with chlorhexidine x3. ? The area was then anesthetized using ethyl chloride spray. 40 mg Kenalog with 1 cc 1% lidocaine was injected without issue. ?Minimal to no bleeding. ?Patient tolerated procedure. Primary Site: left shoulder Prep: site was prepped using aseptic technique and ethochloride spray was applied Injected: 40 mg of, Kenalog, with 1 mL of and 1% plain lidocaine Approach Used: other Procedure: The patient tolerated the procedure well Coding - Acromioclavicular Procedure code (CPT) selection complete Office Meds Kenalog 40 mg/mL suspension for injection Performing Provider: Maria T Robles MD Performing Location: [facility] [place] Rheumatology Administered by: Maria T Robles MD on 02/17/24 17:03 Dose Route Admin Location Dispensed Lot Number Expiration Date [facility] Crochet Machine Operator 40 mg intra-articular Right AC joint 1 mL [id number] 09/11/25 [address]-2 [employer] lidocaine (PF) 10 mg/mL (1 %) injection solution Performing Provider: Maria T Robles MD Performing Location: [facility] [place] Rheumatology Administered by: Maria T Robles MD on 02/17/24 17:03 Dose Route Admin Location Dispensed Lot Number Expiration Date [facility] [employer]chet Machine Operator 10 mg Infiltration Right AC joint 2 mL [id number] 06/12/26 25371-455-74 [employer] Kenalog 40 mg/mL suspension for injection Performing Provider: Maria T Robles MD Performing Location: [facility] [place] Rheumatology Administered by: Maria T Robles MD on 02/17/24 17:03 Dose Route Admin Location Dispensed Lot Number Expiration Date [facility] Crochet Machine Operator 40 mg intra-articular Left AC joint 1 mL [id number] 09/11/25 [address]-5 [employer] lidocaine (PF) 10 mg/mL (1 %) injection solution Performing Provider: Maria T Robles MD Performing Location: [facility] [place] Rheumatology Administered by: Maria T Robles MD on 02/17/24 17:03 Dose Route Admin Location Dispensed Lot Number Expiration Date [facility] Crochet Machine Operator 10 mg Infiltration Left AC joint 2 mL [id number] 06/12/26 78576-501-16 [employer] Results Reviewed Results Reviewed: Shoulder XR Bilateral FINDINGS: There is mild loss of right AC joint space. There is no visible acute fracture, dislocation or subluxation seen. The soft tissues are normal. FINDINGS: Acromioclavicular joint space narrowing. Glenohumeral joint is maintained. No fracture or dislocation. Visualized right lung and ribs are unremarkable. Assessment & Plan Assessment & Plan (1) Fibromyalgia: Code(s): M79.7 - Fibromyalgia Category: Medical Plan: #Fibromyalgia Patient with continued pain for fibromyalgia Failed gabapentin Minimal effect from baclofen We will try low-dose naltrexone RTC 6 months (2) Osteoarthritis of shoulders, bilateral: Code(s): M19.011 - Primary osteoarthritis, right shoulder; M19.012 - Primary osteoarthritis, left shoulder Category: Medical Qualifiers: Osteoarthritis type: primary Qualified Code(s): M19.011 - Primary osteoarthritis, right shoulder; M19.012 - Primary osteoarthritis, left shoulder Plan: #OA Bilateral AC joint Status post bilateral corticosteroid injection today Plan I spent 30 minutes reviewing the record and labs, seeing the patient, discussing the treatment plan and documenting in the medical record ? Orders: Orders AMB Joint Injection/Aspiration Today M19.011 - Primary osteoarthritis, right shoulder, M19.012 - Primary osteoarthritis, left shoulder AMB Joint Injection/Aspiration Today M19.011 - Primary osteoarthritis, right shoulder, M19.012 - Primary osteoarthritis, left shoulder Medications: New naltrexone 4.5 mg PO DAILY 90 days 90 caps 1RF M19.011 - Primary osteoarthritis, right shoulder, M19.012 - Primary osteoarthritis, left shoulder, M79.7 - Fibromyalgia Coding Level of Care Code Est Pt Level 4 (82246) Diagnoses Fibromyalgia M79.7 Primary osteoarthritis of both shoulders M19.011; M19.012 Osteoarthritis type: primary CPT Codes Coding - Joint 5: 01070 - Acromioclavicular ([id number]) Coding - Joint 5: 48497 - Acromioclavicular ([id number])
== END 2024-02-17 16:07 | disposition home or self-care (01) ==
PROVIDERS: PCP Internal Medicine; Visit Provider Student in an Organized Health Care Education/Training Program
DX: M79.7 Fibromyalgia (principal); M19.011 Primary osteoarthritis, right shoulder; M19.012 Primary osteoarthritis, left shoulder
CPT/HCPCS: 20605; 99214

== ENCOUNTER → 2024-02-17 14:54 | Outpatient (BNVA) | payer OTHER, SELFPAY | PROVIDERS: PCP Internal Medicine; Visit Provider Student in an Organized Health Care Education/Training Program | DX: M79.7 Fibromyalgia (principal); M19.011 Primary osteoarthritis, right shoulder; M19.012 Primary osteoarthritis, left shoulder | CPT/HCPCS: 20605; 99212; J2003; J3300 ==

== ENCOUNTER 2024-04-06 09:20 | Day surgery (SDC) | payer OTHER, SELFPAY ==
--- NOTE | 2024-04-05 09:50 | P.CONAN_ITS ---
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) Bone erosion determined by x-ray (Acute) Elevated liver enzymes (Acute) Past Medical History Medical History Colon cancer Osteoarthritis of shoulders, bilateral Elevated uric acid in blood Decreased ROM of right shoulder Chronic right shoulder pain Hx of pilonidal cyst Rheumatoid arthritis Polycythemia Colon cancer Hx of drug abuse Hypothyroidism Hepatitis C Polyarthralgia Family History Family History Father Esophageal cancer Mother Uterine cancer Family history of problems with anesthesia: No Surgical History Surgical History History of knee replacement procedure of left knee History of left knee replacement Hx of colonoscopy Hx of colonoscopy with polypectomy History of colon resection (~12/2021) Hx of skin graft Hx of dilation of urethra History of Problems with Anesthesia: No Social History Social History Household Members: Family Housing: House Are you a primary acute care physical therapist to a significant other at home: No Do you presently have visiting nurse or other home services: No Alcohol intake: current Alcohol intake frequency: holidays/special occasions only Patient Tobacco Use Status: Never used Tobacco Substance Use Type: Marijuana Have you been hit, kicked, punched, or otherwise hurt by someone within the past year? 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 Allergies Allergy/AdvReac Type Severity Reaction Status Date / Time No Known Allergies Allergy Mild NKA Verified 02/17/24 15:04 Home Medications ?Medication ?Instructions ?Recorded ?Confirmed ?Last Taken ?Type blood pressure test kit-large #1 ea 12/14/21 04/08/23 Unknown History levothyroxine 125 mcg tablet 125 mcg PO DAILY 12/14/21 02/17/24 04/06/24 History losartan 100 mg tablet 100 mg PO DAILY 06/08/22 02/17/24 04/05/24 History Assessment and Plan Assessment Anesthesia Assessment: Chart Reviewed Final Anesthetic Review Family History of Problems with Anesthesia: No History of Problems with Anesthesia: No Documented by User: Mireya Valle MD 04/06/24 11:06 [facility] Past Medical History Medical History Colon cancer Osteoarthritis of shoulders, bilateral Elevated uric acid in blood Decreased ROM of right shoulder Chronic right shoulder pain Hx of pilonidal cyst Rheumatoid arthritis Polycythemia Colon cancer Hx of drug abuse Hypothyroidism Hepatitis C Polyarthralgia Family History Family History Father Esophageal cancer Mother Uterine cancer Family history of problems with anesthesia: No Surgical History Surgical History History of knee replacement procedure of left knee History of left knee replacement Hx of colonoscopy Hx of colonoscopy with polypectomy History of colon resection (~12/2021) Hx of skin graft Hx of dilation of urethra History of Problems with Anesthesia: No Social History Social History Household Members: Family Housing: House Are you a primary acute care physical therapist to a significant other at home: No Do you presently have visiting nurse or other home services: No Alcohol intake: current Alcohol intake frequency: holidays/special occasions only Patient Tobacco Use Status: Never used Tobacco Substance Use Type: Marijuana Have you been hit, kicked, punched, or otherwise hurt by someone within the past year? 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 Allergies Allergy/AdvReac Type Severity Reaction Status Date / Time No Known Allergies Allergy Mild NKA Verified 02/17/24 15:04 Home Medications ?Medication ?Instructions ?Recorded ?Confirmed ?Last Taken ?Type blood pressure test kit-large #1 ea 12/14/21 04/08/23 Unknown History levothyroxine 125 mcg tablet 125 mcg PO DAILY 12/14/21 02/17/24 04/06/24 History losartan 100 mg tablet 100 mg PO DAILY 06/08/22 02/17/24 04/05/24 History Exam Height,Weight and Vital Signs: Height 5 ft 6 in Weight 82.36 kg Vital Signs Temp Pulse Resp BP Pulse Ox O2 Del Method 04/06/24 09:24 98.4 F 58 18 170/94 H 97 Room Air Pertinent Lab Results Pertinent Lab Results: Lab Results 04/06/24 Range/Units 09:41 Urine Opiates Screen Not Detected (Not Detect) Ur Buprenorphine Scrn Not Detected (Not Detect) ng/mL Ur Oxycodone Screen Not Detected (Not Detect) ng/mL Urine Methadone Screen Not Detected (Not Detect) ng/mL Urine Fentanyl Screen Not Detected (Not Detect) Ur Barbiturates Screen Not Detected (Not Detect) Ur Phencyclidine Scrn Not Detected (Not Detect) Ur Amphetamines Screen Not Detected (Not Detect) U Benzodiazepines Scrn Not Detected (Not Detect) Urine Cocaine Screen Not Detected (Not Detect) U Marijuana (THC) Screen Not Detected (Not Detect) Airway Mallampati Class: II TM Dist: >3cm Neck ROM: Full Partial: Upper Loose/Missing/Broken Teeth: Yes (Partial denture top. Denies loose or broken teeth) Heart: RRR Lungs: CTAB Assessment and Plan Assessment Anesthesia Assessment: Anesthesia Plan Discussed and Chart Reviewed Final Anesthetic Review Family History of Problems with Anesthesia: No History of Problems with Anesthesia: No NPO: Yes ASA Class: III Final Preanesthetic Review: No Changes in Pt Med Stat, Meds/Allgs Chart Reviewed, Consent Obtained/Reviewed and Anes Risks/Benef Reviewed Patient Risk: Intermediate Procedure Risk: Low Assessment/Block/Sedation in SS: Assess/Block/Sedation-SS Anesthetic Plan Anesthetic Plan: TIVA Disposition: Standard PACU
[2024-04-06 07:59] VITALS: BMI 29.0
[2024-04-06 09:24] VITALS: BP 170/94; PULSE 58; RESP 18; TEMP 36.9; O2SAT 97; BMI 29.3
[2024-04-06] MEDS: Lactated Ringers 1,000 ML 100 ML IVCONT (09:51)
[2024-04-06 10:07] LABS: Amphetamine Screen Urine Not Detected (Not Detect); Barbiturates, Urine Not Detected (Not Detect); Benzodiazepines Screen Urine Not Detected (Not Detect); Buprenorphine Scr Not Detected (Not Detect); Cannabinoid Screen Urine Not Detected (Not Detect); Cocaine Screen Urine Not Detected (Not Detect); Fentanyl, urine Not Detected (Not Detect); Methadone Screen, Urine Not Detected (Not Detect); Opiate Screen Urine Not Detected (Not Detect); Oxycodone Screen Urine Not Detected (Not Detect); Phencyclidine Screen Urine Not Detected (Not Detect)
[2024-04-06 12:21] VITALS: BP 131/79; PULSE 62; RESP 19; TEMP 36.3; O2SAT 97
--- NOTE | 2024-04-06 12:21 | PM.OP ---
Brief Operative Note Date of Service: 04/06/24 Pre-op diagnosis: Screening, Personal history of colon cancer and colon polyps Post-op diagnosis: other (Diverticulosis) Procedure: Colonoscopy to the cecum Surgeon: Jessee Bear MD Anesthesia: MAC Was an Turf Farm Worker used for this Procedure?: No Estimated blood loss (mL): 0 Pathology: none sent Condition: stable Disposition: PACU
[2024-04-06 12:49] VITALS: BP 141/90; PULSE 52; RESP 17; TEMP 36.3; O2SAT 98
--- NOTE | 2024-04-06 14:34 | OP_ITS ---
DATE OF SERVICE: 04/06/2024 SURGEON: Jessee Bear MD INDICATIONS: The patient presents for followup of personal history of colon cancer, personal history of colon polyps, and colorectal cancer screening. Full consent has been obtained from him for this, including risks of bleeding and perforation. PREOPERATIVE DIAGNOSIS: POSTOPERATIVE DIAGNOSIS: PROCEDURE PERFORMED: Colonoscopy to the cecum. ESTIMATED BLOOD LOSS: COMPLICATIONS: ANESTHESIA: Monitored anesthesia care. ASSISTANTS: SPECIMENS: PREOPERATIVE DIAGNOSES: Colorectal cancer screening, personal history of colon cancer, personal history of colon polyps. POSTOPERATIVE DIAGNOSES: Colorectal cancer screening, personal history of colon cancer, personal history of colon polyps, diverticulosis, normal anastomosis, internal hemorrhoids. DESCRIPTION OF PROCEDURE: The patient was placed in the left lateral decubitus position. The digital rectal exam revealed no abnormalities. The Olympus video pediatric colonoscope was then entered into the rectum and advanced easily to the cecum. Once in the cecum, I did identify normal-appearing cecal pouch with appendiceal orifice and a normal-appearing ileocecal valve. The entire cecum and ileocecal valve appeared normal. The appendiceal orifice appeared normal. There was transillumination of light deep in the right lower quadrant. The scope was then slowly withdrawn assessing all mucosal surfaces carefully. Preparation was excellent throughout the colon after a lot of irrigation and suctioning. I did not visualize any sign of polyps, colitis, nor angiodysplasias. The anastomosis appeared normal at approximately 40 cm. There was some diverticula in that area as well. Just distal to the anastomosis, was a submucosal ink george. In the rectum, scope was retroflexed, visualizing internal hemorrhoids, but no other pathology. The rectal mucosa appeared normal. Scope was straightened and withdrawn from the patient. He tolerated the procedure well and was returned to the recovery area in stable condition. IMPRESSION: 1. Diverticulosis. 2. Normal anastomosis. 3. Internal hemorrhoids. PLAN: Given his previous history of colon cancer and colon polyps, I would recommend a repeat colonoscopy in 3 years for further screening and surveillance. He was advised to see me within 1 year for followup in regard to his underlying chronic liver disease from the hepatitis C. MD SHELBY Milian/BRAXTONL / [phone]
== END 2024-04-06 14:00 | disposition home or self-care (01) ==
PROVIDERS: Anesthesiology; PCP Internal Medicine; Visit Provider Internal Medicine
PROC: 0DJD8ZZ Inspection of Lower Intestinal Tract, Via Natural or Artificial Opening Endoscopic (ICD-10-PCS; CPT 45378; principal; 2024-04-06 10:40)
DX: Z12.11 Encounter for screening for malignant neoplasm of colon (principal); Z85.038 Personal history of other malignant neoplasm of large intestine; Z86.0101 Personal history of adenomatous and serrated colon polyps; K57.30 Diverticulosis of large intestine without perforation or abscess without bleeding; K64.8 Other hemorrhoids; K74.00 Hepatic fibrosis, unspecified; B19.20 Unspecified viral hepatitis C without hepatic coma; M79.7 Fibromyalgia; E03.9 Hypothyroidism, unspecified; Z86.19 Personal history of other infectious and parasitic diseases; Z90.49 Acquired absence of other specified parts of digestive tract; Z98.0 Intestinal bypass and anastomosis status; Z79.52 Long term (current) use of systemic steroids; Z79.899 Other long term (current) drug therapy; F19.11 Other psychoactive substance abuse, in remission; Z98.890 Other specified postprocedural states
CPT/HCPCS: 45378; 80307; J2003; J2704

== ENCOUNTER 2024-07-26 10:44 | Outpatient (REF) | payer OTHER, SELFPAY ==
--- OUTSIDE RECORDS SUMMARY | 2024-07-26 11:51 | XMS_ITS | Encounter Summary ---
Author Organization [employer] Address [address] [facility] [address] [place] [address] Care Team Providers Care Wire Machine Operator Name Role Phone Rogelio Yadav MD Primary Care Prov ider Reason for Visit * Reason Onset Date Comments Nurse Triage 07/23/2024 Encounter Details Date Type Department Care Team (Late st Contact Info) Description 07/23/2024 Telephone [facility] MEDICINE [address] [place] [address] Rogelio Yadav MD [address] [place] [address] Nurse Triage Social History Tobacco Use Types Packs/Day Years Used Date Smoking Tobacco: Never Passive Smoke Exposure: Never Smokeless Tobacco: Never Alcohol Use Standard Drinks/Week Comments Never 0 (1 standard drink = 0.6 oz pur e alcohol) Depression Answer Date Recorded Patient Health Questionnaire-9 Score 0 08/23/2022 Housing Stability Answer Date Recorded What is your housing situation today? I have jefferson clement 01/03/[address] you li ve. Do you have problems with any of the following? None of the above 01/03/2023 Food Insecurity Answer Date Recorded Within the past 12 months, y ou worried that your food would run out before you got money to buy more: Never True 01/03/2023 Within the past 12 months,th e food you bought just didn't last and you didn't have enough money to get more: Never True Transportation Answer Date Recorded In the past 12 months, has l ack of transportation kept you from medical appts, meetings, work or from getting things needed for daily living? No 01/03/2023 Utilities Answer Date Recorded In the past 12 months, has t he electric, gas, oil or water company threatened to shut off services in your home? No 01/03/2023 Depression Answer Date Recorded Patient Health Questionnaire-2 Score 0 08/23/2022 Sex and Gender Information Value Date Recorded Sex Assigned at Male 01/11/2022 10:17 AM EDT Legal Sex Male 10:17 AM EDT Gender Identity Male 01/11/2022 10:17 AM EDT Sexual Orientation Straight 01/11/2022 10 :17 AM EDT documented as of this encounter Miscellaneous Notes * Telephone Encounter - Sena Thomason RN - 07/23/2024 2:01 PM EDT Called pt. Via [employer] [place] engraver set up operator [id number] [address]. No answer. Loader Operator Supervisor called pt. X2. Pt. States that he has been having muscular and body pain x 3 months now. Pt. Denies thoughts of getting bit by a Tik and states I have Hypothyroidism and I think my levels may need to be checked because I get muscle aches and tired when my levels are low. Pt only wants appt. With PCP. Declines walk in and any other providers. Appt. Given for 07/25/24 with PCP at 215pm due to pt. Work schedule. Protocol Used: Muscle Aches and Body Pain (Adult) Protocol-Based Disposition: See in Office or Video Visit within 2 Weeks- televisit made for 07/25/24at 215pm with PCP Video visit not offered Positive Triage Question: * Muscle aches or body pains are a chronic symptom (recurrent or ongoing AND present > 4 weeks) * All higher-acuity triage questions were negative * Telephone Encounter - Rolan Flowers - 07/23/2024 1:54 PM EDT TC from pt reporting muscle pain for the past 3x months Afghan speaking documented in this encounter Plan of Treatment Upcoming Encounters Date Type Department Care Team (Late st Contact Info) Description 10/25/2024 1:00 PM EDT Telemedicine [facility] MED & PEDS [address] [place] [address] Rogelio Yadav MD [address] [place] [address] documented as of this encounter Visit Diagnoses Not on filedocumented in this encounter Additional Health Concerns Assessment Noted Time PHQ-9 Depression Total Score: 0 08/24/19 23 2:52 PM EDT documented as of this encounter Care Teams Wire Machine Operator Relationship Specialty Start Date End Date Rogelio Yadav MD [address] [place] [address] PCP - General Internal Medicine 07/31/19 documented as of this encounter
--- OUTSIDE RECORDS SUMMARY | 2024-07-26 11:51 | XMS_ITS | Clinical Summary ---
Author Organization [facility] Address [address] [place] [address] Care Team Providers Care Bumper Operator Name Role Phone Unavailable Primary Care Provider Unavailabl e Social History Tobacco Use Types Packs/Day Years Used Date Smoking Tobacco: Never Assessed Sex and Gender Information Value Date Recorded Sex Assigned at Not on file Legal Sex Male 3:13 PM EST Gender Identity Not on file Sexual Orientation Not on file Plan of Treatment Health Maintenance Due Date Last Done Comments DTaP,Tdap,and Td Vaccines (1 - Tdap) 1984 Hepatitis B Vaccines (1 of 3 - 19+ 3-dose series) 1984 Pneumococcal Vaccine: 50+ Ye ars (1 of 1 - PCV) 05/25/2015 Zoster Vaccines (1 of 2) 05/25/2015 COVID-19 Vaccine ( - 2023-2 5 season) 2023 Influenza Vaccine (Season Ended) 2024 RSV Immunization Adult Patie nts (1 - 1-dose 75+ series) 2040 HIB Vaccines Aged Out No longer eligi ble based on patient's age to complete this topic HPV Vaccines Aged Out No longer eligi ble based on patient's age to complete this topic Hepatitis A Vaccines Aged Out No long er eligible based on patient's age to complete this topic IPV Vaccines Aged Out No longer eligi ble based on patient's age to complete this topic MMR Vaccines Aged Out No longer eligi ble based on patient's age to complete this topic Meningococcal ACWY Vaccine Aged Out N o longer eligible based on patient's age to complete this topic Meningococcal B Vaccine Aged Out No l onger eligible based on patient's age to complete this topic Pneumococcal Vaccine: Pediat rics (0 to 5 Years) and At-Risk Patients (6 to 64 Years) Aged Out No longer eligible b ased on patient's age to complete this topic RSV Immunization Patients Un karen 20 months Aged Out No longer eligible b ased on patient's age to complete this topic Varicella Vaccines Aged Out No longer eligible based on patient's age to complete this topic
--- OUTSIDE RECORDS SUMMARY | 2024-07-26 11:51 | XMS_ITS | Encounter Summary ---
Author Organization [employer] Address [address] 7[address] [place] [address] Care Team Providers Care Knit Goods Cutter Hand Name Role Phone Rogelio Yadav MD Primary Care Prov ider Encounter Details Date Type Department Care Team (Latest Contact Info) Description 07/25/2024 Travel Social History Tobacco Use Types Packs/Day Years [...] AM EDT documented as of this encounter Plan of Treatment Upcoming Encounters Date Type Department Care Team (Late st Contact Info) Description 10/25/2024 1:00 PM EDT Telemedicine [facility] MED & PEDS [address] [place] [address] Rogelio Yadav MD [address] [place] [address] documented as of this encounter Visit Diagnoses Not on filedocumented in this encounter Additional Health Concerns Assessment Noted Time PHQ-9 Depression Total Score: 0 08/24/19 23 2:52 PM EDT documented as of this encounter Care Teams Knit Goods Cutter Hand Relationship Specialty Start Date End Date Rogelio Yadav MD [address] [place] [address] PCP - General Internal Medicine 07/31/19 documented as of this encounter
--- OUTSIDE RECORDS SUMMARY | 2024-07-26 11:51 | XMS_ITS | Encounter Summary ---
Author Organization [employer] Address [address] [place] [address] Care Team Providers Care Chief Operator Lock Tender Name Role Phone Rogelio Yadav MD Primary Care Prov ider Encounter Details Date Type Department Care Team (Late st Contact Info) Description 06/25/2023 Orders Only [facility] MEDICINE [address] [place] [address] ProviderEmerita MD Social History Tobacco Use Types Packs/Day Years [...] Info) Description 10/25/2024 1:00 PM EDT Telemedicine [facility] MED & PEDS [address] [place] [address] Rogelio Yadav MD [address] [place] [address] documented as of this encounter Procedures Procedure Name Priority Date/Time Associated Diagnosis Comments HM COLONOSCOPY Routine 03/17/2021 7:26 AM EST HM COLONOSCOPY Routine 10/15/2019 7:22 AM EDT HM COLONOSCOPY Routine 04/21/2018 7:21 AM EST HM COLONOSCOPY Routine 08/17/2016 7:20 AM EDT documented in this encounter Results * Hm Colonoscopy (03/17/2021 7:26 AM EST) Historical Provider HEALTH MAINTENANCE Final Result * Hm Colonoscopy (10/15/2019 7:22 AM EDT) [facility] Provider HEALTH MAINTENANCE Final Result * Hm Colonoscopy (04/21/2018 7:21 AM EST) Historical Provider HEALTH MAINTENANCE Final Result * Hm Colonoscopy (08/17/2016 7:20 AM EDT) [facility] Provider HEALTH MAINTENANCE Final Result documented in this encounter Visit Diagnoses Not on filedocumented in this encounter Additional Health Concerns Assessment Noted Time PHQ-9 Depression Total Score: 0 08/24/19 23 2:52 PM EDT documented as of this encounter Care Teams Chief Operator Lock Tender Relationship Specialty Start Date End Date Rogelio Yadav MD [address] [place] [id number] PCP - General Internal Medicine 07/31/19 documented as of this encounter
--- OUTSIDE RECORDS SUMMARY | 2024-07-26 11:51 | XMS_ITS | Encounter Summary ---
Author Organization [employer] Address [address] [facility] [address] [place] [address] Care Team Providers Care Manufacturing Controls Engineer Name Role Phone Rogelio Yadav MD Primary Care Prov ider Encounter Details Date Type Department Care Team (Latest Contact Info) Description 09/22/2018 Abstract [facility] CONVERSIONS Dental, Provider, DDS Social History Tobacco Use Types Packs/Day Years [...] 10/25/2024 1:00 PM EDT Telemedicine [facility] MED & PEDS [address] [place] [address] Rogelio Yadav MD [address] [place] [address] documented as of this encounter Visit Diagnoses Not on filedocumented in this encounter Care Teams Manufacturing Controls Engineer Relationship Specialty Start Date End Date Rogelio Yadav MD [address] [place] [address] PCP - General Internal Medicine 07/31/19 documented as of this encounter
--- OUTSIDE RECORDS SUMMARY | 2024-07-26 11:51 | XMS_ITS | Clinical Summary ---
Author Organization [employer] Address [address] [facility] [address] [place] [address] Care Team Providers Care Wallcovering Hanger Name Role Phone Rogelio Yadav MD Primary Care Prov ider Allergies No known active allergies Medications diclofenac (Voltaren) 75 MG EC tablet TOME MINERVA TABLETA POR V A ORAL DOS VECES AL D A 3 Active naproxen (Naprosyn) 500 MG tabletIndicati ons:Acute pain of right shoulder TOME MINERVA TABLETA DOS VECES AL AIYANA 60 tablet 4 Active levothyroxine (Synthroid, Levoxyl) 125 MCG tablet TAKE 1 TABLET BY MOUTH EVERY DAY 90 tablet 1 5 Active losartan (Cozaar) 25 MG tablet Take 25 mg by mouth Once per day. Active losartan (Cozaar) 100 MG tablet TOME MINERVA TABLETA POR V A ORAL TODOS LOS D 3 025 Discontinued hydroCHLOROthi azide (HYDRODiuril) 25 MG tablet Take 1 tablet (25 mg) by mouth in the morning. 30 tablet 11 3 025 Discontinued DULoxetine (Cymbalta) [address] capsule Take 1 capsule (30 mg) by mouth 2 times daily. Do not crush or chew. 60 capsule 4 025 Discontinued gabapentin (Neurontin) 300 MG capsule Take 1 capsule (300 mg) by mouth 2 times daily. 60 capsule 4 025 Discontinued ofloxacin (Ocuflox) 0.3 % ophthalmic solution Instill 1 drop into affected eye(s) 4 times daily for 7 days. 10 mL 4 025 Discontinued Active Problems Problem Noted Date Diagnosed Date Dry skin dermatitis 11/24/2023 Assessment & Plan (11/24/2023 2:34 PM EDT): Told to apply skin moisturizer 2-3 times a day, avoid hot baths, follow up as needed Bacterial conjunctivitis 09/17/2023 Assessment & Plan (09/17/2023 11:00 AM EDT): Exposed to family member, no vision/blurry vision reported, refers having greenish crust, red eye, sand feeling and light sensitivity, will prescribe ofloxacin, told to keep washing his hand to avoid exposure to other family members Hx of colon cancer, stage I 06/24/2023 Assessment & Plan (06/24/2023 10:20 AM EDT): Colonosocpy done on 03/16/2021 due in 3 years Fibromyalgia 06/24/2023 Assessment & Plan (07/19/2023 12:41 PM EDT): Continue gabapentin and Cymbalta daily, continue exercises, could try accupuncture Assessment & Plan (06/24/2023 11:21 AM EDT): Will provide cymbalta and gabapentin, discussed alternative such as acupuncture, yoga/tarsha-nish, and water exercise White coat syndrome with diagnosis of hypertensi on 11/25/2022 Assessment & Plan (11/25/2022 11:19 AM EDT): Patient refers at home bp readings remain <140/90, he refers whenever he gets to a office he gets anxious. Reinforced low sodium diet and exercise. Follow up in 1 months tele Primary hypertension 08/23/2022 Assessment & Plan (07/25/2024 2:37 PM EDT): Controlled, recently saw cardiology and losartan was decreased, will order new labs, follow up in 4 months Assessment & Plan (11/24/2023 2:35 PM EDT): Patient has WCS, his bp reading have remained stable at home, contineu same treatment Assessment & Plan (07/19/2023 12:39 PM EDT): Repeated, was controlled, at home has remained below 140/90, no changes will be made Assessment & Plan (06/24/2023 11:19 AM EDT): Elevated, repeated during appointment and was 148/92, he has WCS, at home refers has maintained <140/90, keep low sodium diet Assessment & Plan (02/25/2023 9:54 AM EST): Controlled with current treatment, reinforced low sodium diet and exercise as tolerated, reviewed home results remained >80% <140/90, follow up in 4 months Assessment & Plan (01/03/2023 11:08 AM EDT): Patient has been reporting blood pressure results on the upper end of 140/90, with <80% of results below target, will add hydrochlorothiazide, reinforced low sodium diet and exercise, will follow up in 1 month Assessment & Plan (08/23/2022 4:11 PM EDT): Patient refers that at home is controlled, he is on losartan 100mg, reinforced low sodium diet and exercise as tolerated Acquired hypothyroidism 08/23/2022 Assessment & Plan (07/25/2024 2:39 PM EDT): Will order new labs, patient feeling fatigue and tired Assessment & Plan (07/19/2023 12:40 PM EDT): Discussed blood work, continue with current levothyroxine dose, clinically and chemically euthyroid Assessment & Plan (06/24/2023 11:20 AM EDT): On levothyroxine 125mcg, new labs will be ordered for guidance. Assessment & Plan (11/25/2022 11:19 AM EDT): Clinically and chemically euthyroid, continue current levothyroxine dose. Assessment & Plan (08/23/2022 4:11 PM EDT): Clinically euthyroid, will order new labs for guidance of therapy Encounters Date Type Department Care Team Description 07/25/2024 2:15 PM EDT Telemedicine [facility] MED & PEDS [address] [place] [address] Rogelio Yadav MD Primary hypertension (Primary Dx); Acquired hypothyroidism; Fibromyalgia 07/25/2024 Travel 07/23/2024 Telephone [facility] MEDICINE [address] [place], [place] [phone] Rogelio Yadav MD Nurse Triage 05/09/2024 Refill [facility] MED & PEDS [address] [place] [address] Rogelio Yadav MD from Last 3 Months Social History Tobacco Use Types Packs/Day Years Used Date Smoking Tobacco: Never Passive Smoke Exposure: Never Smokeless Tobacco: Never Tobacco Cessation:Counseling Given: Not Answered Alcohol Use Standard Drinks/Week Comments Never 0 (1 standard drink = 0.6 oz pur e alcohol) Depression Answer Date Recorded Patient Health Questionnaire-9 Score 0 08/23/2022 Housing Stability Answer Date Recorded What is your housing situation today? I have jeffersonleni clement 01/03/[address] you [...] Orientation Straight 01/11/2022 10 :17 AM EDT Last Filed Vital Signs Vital Sign Reading Time Taken Comments Blood Pressure 142/76 01/13/2024 10:53 AM EDT Pulse 88 11/24/2023 1:44 PM EDT Temperature 36.5 ??C (97.7 ??F) 11/24/2023 1:44 PM ED T Respiratory Rate 20 11/24/2023 1:44 PM EDT Oxygen Saturation 98% 06/24/2023 10:12 AM EDT Inhaled Oxygen Concentration - - Weight 79.8 kg (176 lb) 11/24/2023 1:44 PM EDT Height 167.6 cm (5' 6 ) 11/24/2023 1:44 PM EDT Body Mass Index 28.41 11/24/2023 1:44 PM EDT Plan of Treatment Upcoming Encounters Date Type Department Care Team (Late st Contact Info) Description 10/25/2024 1:00 PM EDT Telemedicine [facility] MED & PEDS [address] [place], [place] [phone] NicholsRogelio Evangelista MD [address] [place] [address] Health Maintenance Due Date Last Done Comments CT Colonography 1965 FIT DNA/Cologuard 1965 FIT 1965 FOBT 1965 Sigmoidoscopy 1965 Alcohol/Substance Use Screening 1977 Hepatitis A Vaccines (1 of 2 - Risk 2-dose series) 1984 Hepatitis B Vaccines (1 of 3 - 19+ 3-dose series) 1984 Pneumococcal Vaccine: 50+ Years (2 of 2 - PCV) 05/25/2015 07/11/2006 Zoster Vaccines (2 of 2) 12/12/2022 10/17/2022 Depression Screening 08/24/2023 08/23/2022, 08/24/19 SDOH Screening 08/24/2023 08/23/2022 COVID-19 Vaccine ( season) 2023 07/17/2021, 12/16/2020, 05/13/2020, Additional history exists Dental Oral Exam 05/28/2024 11/28/2023 Dental Prophylaxis 06/05/2024 12/06/2023 Dental X-Ray: Bitewings 11/28/2024 11/28/2023 Tobacco Screening 01/12/2025 01/13/2024 Dental X-Ray: Full Mouth 11/28/2026 11/28/2023 Colonoscopy 04/06/2027 03/17/2021, 0805/2019, 04/21/2018, Additional history exists Colorectal Cancer Screening 04/06/2027 DTaP/Tdap/Td Vaccines (3 - Td or Tdap) 02/16/2028 02/15/2018, 12/25/2010, 07/11/2006, Additional history exists Lipid Panel 06/23/2028 06/24/2023, 0605/2022, 11/23/2021, Additional history exists RSV Patients and Patients Aged 60 years or older (1 - 1-dose 75+ series) 2040 HIV Screening Completed 12/29/2020 Influenza Vaccine Completed 12/19/2023, , 02/03/2022, Additional history exists HIB Vaccines Aged Out No longer eligi [...] patient's age to complete this topic Meningococcal Vaccine Aged Out No vikki jim eligible based on patient's age to complete this topic RSV under 20 months Aged Out No longe r eligible based on patient's age to complete this topic Rotavirus Vaccines Aged Out No longer eligible based on patient's age to complete this topic Procedures Procedure Name Priority Date/Time Associated Diagnosis Comments PROPHYLAXIS - ADULT Routine 12/06/2023 1 1:00 AM EDT Dental calculus Dental plaque INTRAORAL - COMPLETE SERIES OF RADIOGRAPHIC IMAGES Routine 11/28/2023 10:30 AM EDT PERIODIC ORAL EVALUATION - ESTABLISHED PATIENT Routine 11/28/2023 10:30 AM EDT LIPID PANEL, STANDARD Routine 06/24/2023 11:16 AM EDT Primary hypertension HM COLONOSCOPY Routine 03/17/2021 7:26 AM EST HIV 1/2 ANTIGEN/ANTIBODY, FOURTH GENERATION W/RFL Routine 12/29/2020 11:42 AM EDT from Last 3 Months or Most Recently Relevant to Health Maintenance Results * (ABNORMAL) Lipid Panel, Standard (06/24/2023 11:16 AM EDT) Triglycerides 59 <150 mg/dL [facility] Comment:Desirable Triglyceri de: less than 150 mg/dLBorderline High Triglyceride 150-199 mg/dLHigh Triglyceride: 200-499 mg/dLVery High Triglyceride: greater than or equal to 5OO mg/dL Cholesterol 155 <200 mg/dL [facility] Comment:Desirable Cholestero l: less than 200 mg/dLBorderline High Cholesterol: 200-239 mg/dLHigh Cholesterol: greater than 239 mg/dL LDL Cholesterol Calculated 108(H) <100 mg/dL [facility] Comment:Desirable LDL: less than 100 mg/dLNear Optimal/Above Optimal LDL: 110- 129 mg/dLBorderline High LDL: 130-159 mg/dLHigh LDL: 160-189 mg/dLVery High LDL: greater than or equal to 190 mg/dL HDL Cholesterol 36(L) >40 mg/dL [facility] Comment:Desirable HDL: great er than 40 mg/dL Note: This HDL assay may give artificially low results in patients with liver disease. Blood Venous blood specimen / Unknown 06/24/2023 11:16 AM EDT 06/24/2023 2:43 PM EDT us Rogelio Marie MD LAB BLOOD ORDERABL ES Final Result [facility] [address] [place] [phone] * Hm Colonoscopy (03/17/2021 7:26 AM EST) [facility] Provider HEALTH MAINTENANCE Final Result * HIV 1/2 ANTIGEN/ANTIBODY,FOURTH GENERATION W/RFL (12/29/2020 11:42 AM EDT) Pathologist [facility] HIV-1/2 ANTIGEN AND ANTIBODIES, 4TH GENERATION W/ REFLEX NON-REACT ANKUSH NON-REACT ANKUSH [facility] Comment: HIV-1 antigen and HIV-1/HIV-2 antibodies were not detected. There is no laboratory evidence of HIV infection. ?? PLEASE NOTE: This information has been disclosed to you from records whose confidentiality may be protected by state law. ??If your state requires such protection, then the state law prohibits you from making any further disclosure of the information without the specific written consent of the person to whom it pertains, or as otherwise permitted by law. A general authorization for the release of medical or other information is NOT sufficient for this purpose. ? For additional information please refer to http://education.Guidecentral/faq/EDC654 (This link is being provided for informational/ educational purposes only.) ? The performance of this assay has not been clinically validated in patients less than 2 years old. ?? 12/29/2020 11:4 2 AM EDT Rogelio Marie MD LAB BLOOD ORDERABL ES Final Result [facility] [address] from Last 3 Months or Most Recently Relevant to Health Maintenance Insurance HEALTH PLAN DENTAL - HSN PARTIAL (MEDICAID) Care Teams Wallcovering Hanger Relationship Specialty Start Date End Date Rogelio Yadav MD [address] [place] [phone] PCP - General Internal Medicine 07/31/19
--- OUTSIDE RECORDS SUMMARY | 2024-07-26 11:51 | XMS_ITS | Patient Health Record ---
Author Organization [facility] Address [address] [place] [phone] Care Team Providers Care Licensed Nurse Practitioner Name Role Phone Kylie jimenez, Rogelio Primary Care Prov ider Unavailable Jessee Machuca Unavailable [phone] Allergies No Known Allergies Results Component Value Reference Range Notes Complete Blood Count Auto Di ff Reviewed date:12/17/2023 11:17:43 PM Interpretation: Performing Lab:[facility], [address] [place] [address] Notes/Report: White Blood Count 5.2 4.8-10.8 X10*3/uL Red Blood Count 5.13 4.60-5.80 X10*6/uL Hemoglobin 14.9 14.0-18.0 g/dl Hematocrit 44.2 42.0-52.0 % Mean Corpuscular Volume 86.2 80.0-98.0 fL Mean Corpuscular Hemoglobin 29.0 27.0-33.0 pg Mean Corpuscular HGB Conc 33.7 31.0-36.0 g/dl Red Cell Distribution Width 12.7 11.0-16.0 % Platelet Count 122 160-400 X10*3/uL Mean Platelet Volume 11.7 9.4-12.4 fL Neutrophils Percent Auto 52.1 45-73 % Imm Gran Pct Auto 0.2 0.0-0.4 % Lymphocytes Percent Auto 30.6 20-40 % Monocytes Percent Auto 13.2 2-11 % Eosinophils Percent Auto 3.1 0-4 % Basophils Percent Auto 0.8 0-2 % NRBC Pct Auto 0.0 0.0-0.2 /100WBC Neutrophils Absolute Auto 2.7 2.0-8.3 x10*3/uL Imm Gran Abs Auto 0.01 0.00-0.03 X10*3/uL Lymphocytes Absolute Auto 1.6 1.2-4.9 X10*3/uL Monocytes Absolute Auto 0.7 0.1-1.2 X10*3/uL Eosinophils Absolute Auto 0.2 0.0-0.4 X10*3/uL Basophils Absolute Auto 0.0 0.0-0.2 X10*3/uL NRBC Abs Auto 0.000 0.0-0.012 X10*3/uL Prothrombin Time INR Reviewed date:12/16/2023 04:21:13 PM Interpretation: Performing Lab:[address] [address] Notes/Report: Prothrombin Time 11.3 10.9-12.4 SEC INTERNATIONAL NORM RATIO 1.0 0.9-1.1 INTERNATIONAL NORMALIZED RATIO (INR) REFERENCE RANGES Reference Range For patients not on anticoagulant therapy: 0.9 - 1.1 INR ranges for oral anticoagulant therapy: For prevention and treatment of venous thrombosis and pulmonary embolism: 2.0 - 3.0 For acute myocardial infarction with aspirin therapy: 2.0 - 3.0 For acute myocardial infarction without aspirin therapy: 3.0 - 4.0 For patients with mechanical prosthetic heart valves: 2.5 - 3.5 Liver Panel Reviewed date:12/16/2023 04:21:04 PM Interpretation: Performing Lab:[address] [address] Notes/Report: Bilirubin Total 0.8 0.0-1.0 mg/dL Bilirubin Direct 0.3 0.0-0.5 mg/dL Aspartate Amino Transferase 23 5-37 U/L Alanine Aminotransferase 28 0-40 U/L Total Protein 7.4 6.5-8.0 g/dL Albumin Level 4.1 3.5-5.0 g/dL Alkaline Phosphatase 48 39-117 U/L Alpha Fetoprotein Reviewed date:12/23/2023 12:47:18 PM Interpretation: Performing Lab:[address] [address] Notes/Report: Alpha Fetoprotein 2.1 <6.1 ng/mL This test was performed using the Aaliyah Alejandra chemiluminescent method. Values obtained from different assay methods cannot be used interchangeably. AFP levels, regardless of value, should not be interpreted as absolute evidence of the presence or absence of disease. THIS TEST WAS PERFORMED AT: [facility] [address] [place] [phone] STUART TREVINO MD Liver Fibrosis Pnl Reviewed date:12/25/2023 10:06:16 PM Interpretation: Performing Lab:[facility], [address] [place] [phone] Notes/Report: Liver Fibrosis Score 0.48 Liver Fibrosis Stage F1-F2 Liver Fibrosis Interpretation SEE NOTE minimal fibrosis Fibro Test Score (f) Metavir Score f>=0 and f<=0.21 : F0 (no fibrosis) f>0.21 and f<=0.27 : F0-F1 (no fibrosis) f>0.27 and f<=0.31 : F1 (minimal fibrosis) f>0.31 and f<=0.48 : F1-F2 (minimal fibrosis) f>0.48 and f<=0.58 : F2 (moderate fibrosis) f>0.58 and f<=0.72 : F3 (advanced fibrosis) f>0.72 and f<=0.74 : F3-F4 (advanced fibrosis) f>0.74 and f<=1.00 : F4 (severe fibrosis) Nec Inflam Act Score 0.14 Nec Inflam Act Grade A0 Nec Inflam Act Interpretation SEE NOTE no activity ActiTest Score (a) Metavir Score a>=0 and a<=0.17 : A0 (no activity) a>0.17 and a<=0.29 : A0-A1 (no activity) a>0.29 and a<=0.36 : A1 (minimal activity) a>0.36 and a<=0.52 : A1-A2 (minimal activity) a>0.52 and a<=0.60 : A2 (significant activity) a>0.60 and a<=0.62 : A2-A3 (significant activity) a>0.62 and a<=1.00 : A3 (severe activity) XTP-Ehwas-6-Macroglobuli n 310 106-279 mg/dL FIB-Haptoglobin 118 43-212 mg/dL FIB-Apolipoprotein A1 141 94-176 mg/dL FIB-Total Bilirubin 0.6 0.2-1.2 mg/dL FIB-GGT 20 3-85 U/L FIB-ALT 25 9-46 U/L Reference ID [id number] Footnote SEE NOTE The reliability of results is dependent on compliance with the preanalytical and analytical conditions recommended by [employer]. The tests have to be deferred for: acute hemolysis, acute hepatitis, acute inflammation, extra hepatic cholestasis. The advice of a specialist should be sought for interpretation in chronic hemolysis and Gilbert's syndrome. The test interpretation is not validated in liver transplant patients. Isolated extreme values of one of the components should lead to caution in interpreting the results. In case of discordance between a biopsy result and a test, it is recommended to seek the advice of a specialist. The causes of these discordances could be due to a flaw of the test or to a flaw in the biopsy: i.e. a liver biopsy has a 33% variability rate for one fibrosis stage. FibroTest is interpretable for chronic hepatitis B and C, alcoholic and non alcoholic steatosis. ActiTest is interpretable for chronic hepatitis B and C. The performance characteristics have been determined by [facility]. It has not been cleared or approved by the U.S. Food and Drug Administration. Performance characteristics refer to the analytical performance of the test. Bunchball, the associated logo, The [email or web address] and all associated [employer] pitts are the registered trademarks of [employer]. All third alliance party pitts - (R) and (TM) - are the property of their respective owners. (C) 2646-3885 [employer]. All rights reserved. THIS TEST WAS PERFORMED AT: [facility] [address] [place] [address] IGOR TANG MD,PHD,CONNOR US abdomen comp w elastograp hy Reviewed date:04/05/2024 05:29:56 PM Interpretation: Performing Lab: Notes/Report: [address] [address] Ultrasound Report Signed Patient: Bethany Webb MR#: [id number] 4 : 1965 Acct:[id number] Age/Sex: 58 / M ADM Date: 12/16/23 Loc: HO.US Attending Dr: Jessee Machuca MD Ordering Physician: Jessee Machuca MD Date of Service: 12/16/23 Procedure(s): US abdomen comp w elastography Accession Number(s): [id number] cc: Rogelio Yadav MD; Jessee Machuca MD EXAMINATION: US COMPLETE ABDOMEN WITH LIVER ELASTOGRAPHY CLINICAL INFORMATION: Hepatitis C with liver fibrosis. COMPARISON: Ultrasound abdomen 09/01/2022. TECHNIQUE: Real-time imaging of the abdominal viscera. Noninvasive ultrasound liver fibrosis assessment is performed using Arslan ElastPQ point quantification shear wave elastography (pSWE) with a C5-2 MHz transducer. Multiple elastography samples are obtained. FINDINGS: PANCREAS: The visualized pancreas appears unremarkable but the pancreatic tail is obscured by bowel gas. ABDOMINAL AORTA: The proximal and middle aorta is of normal caliber. The distal aorta was obscured by bowel gas. INFERIOR VENA CAVA: Visualized portions are normal. LIVER: The liver demonstrates increased echogenicity consistent with hepatic steatosis. No focal lesion or intrahepatic biliary duct dilatation. The right lobe measures 16.1 cm in length. The left lobe measures 11.0 cm in length. Portal flow is towards the liver (hepatopetal). Shear wave liver elastography median stiffness is 1.83 m/s (previously 1.49 m/s) (reference: normal median stiffness is 1.3 m/s or less). IQR/median stiffness to assess sampling precision is 0.13 (previously 0.05) (reference: good quality data set is IQR/median stiffness of 0.15 or less). GALLBLADDER: The gallbladder is physiologically distended without evidence of stones, sludge, polyps, wall thickening or pericholecystic fluid. COMMON BILE DUCT: Normal in caliber measuring 0.8 cm in diameter. RIGHT KIDNEY: No hydronephrosis. There is a lower pole echogenic focus which may represent a nonobstructing calculus. No other renal calculi or focal parenchymal lesions. The kidney measures 10.9 cm in maximum dimension. LEFT KIDNEY: Normal. No renal calculi. No hydronephrosis. No focal parenchymal lesions. The kidney measures 10.8 cm in maximum dimension. SPLEEN: Normal. The spleen measures 11.8 cm in maximum dimension. FREE FLUID: None. US/US abdomen comp w elastography IMPRESSION: 1. Echogenic liver consistent with steatosis. 2. Liver Elastography: Measurements are consistent with compensated advanced chronic liver disease. When compared with prior exam, there is a statistically significant increase in liver stiffness (increase at least 10%). REFERENCE: Society of Radiologists in Ultrasound Liver Stiffness Thresholds (2020): LIVER STIFFNESS THRESHOLDS: *Liver Stiffness equal or less than 1.3 m/s: High probability of being normal. *Liver Stiffness less than 1.7 m/s: In the absence of other known clinical signs, rules out compensated advanced chronic liver disease. *Liver Stiffness 1.7-2.1 m/s: Suggestive of compensated advanced chronic liver disease but need further test for confirmation. *Liver Stiffness over 2.1 m/s: Rules in compensated advanced chronic liver disease. *Liver Stiffness over 2.4 m/s: Suggestive of clinically significant portal hypertension. QUALITY OF DATA SET: *IQR/Median value equal or less than 0.15 implies a quality data set. *IQR/Median value over 0.15 implies a poor quality data set. SIGNIFICANT CHANGE FROM PRIOR EXAM: Significant change if liver stiffness measurement is 10% or greater from prior exam. OTHER CONSIDERATIONS: The stage of liver fibrosis may be overestimated in the setting of acute hepatitis, liver inflammation, elevated liver function tests, hepatic vascular congestion, obstructive cholestasis, non-fasting state, and infiltrative diseases such as amyloidosis and lymphoma. In some patients with NAFLD, the liver stiffness thresholds for compensated advanced chronic liver disease may be lower. In causes other than viral hepatitis and NAFLD, liver stiffness thresholds are not well established. Electronically signed by: Grey Canas MD 02/16/2024 10:57 PM [facility] Dictated By: Grey Canas MD Signed By: <Electronically signed by Grey Canas MD in OV> 02/16/24 2257 DD/ 0908 TD/TT: 12/16/23 0947 Video Production Specialist: [address] [address] Ultrasound Report Signed Patient: Bethany Webb MR#: [id number] 4 : 1965 Acct:[id number] Age/Sex: 58 / M ADM Date: 12/16/23 Loc: HO.US Attending Dr: Jessee Machuca MD Ordering Physician: Jessee Mcahuca MD Date of Service: 12/16/23 Procedure(s): US abdomen comp w elastography Accession Number(s): [id number] cc: Rogelio Yadav MD; Jessee Machuca MD EXAMINATION: US COMPLETE ABDOMEN WITH LIVER ELASTOGRAPHY CLINICAL INFORMATION: Hepatitis C with karen er fibrosis. COMPARISON: Ultrasound abdomen 09/01/2022. TECHNIQUE: Real-time imaging of the abdominal viscera. Noninvasive ultrasound liver fibrosis assessment is performed using Arslan ElastPQ point quantification shear wave elastography (pSWE) with a C5-2 MHz transducer. Multiple elastography samples are obtained. FINDINGS: PANCREAS: The visualized pancreas appears unremarkable but the pancreatic tail is obscured by bowel gas. ABDOMINAL AORTA: The proximal and middle aorta is of normal caliber. The distal aorta was obscured by bowel gas. INFERIOR VENA CAVA: Visualized portions are normal. LIVER: The liver demonstrates increased echogenicity consistent with hepatic steatosis. N o focal lesion or intrahepatic biliary duct dilatation. The right lobe measu res 16.1 cm in length. The left lobe measures 11.0 cm in length. Portal flow is towar ds the liver (hepatopetal). Shear wave liver elastography median stiffness is 1.83 m/s (previously 1.49 m/s) (reference : normal median stiffness is 1.3 m/s or less). IQR/median stiffness to assess sampling precision is 0.13 (previously 0.05) (reference: go od quality data set is IQR/median stiffness of 0.15 or less). GALLBLADDER: The gallbladder is physiologically distended without evidence of stones, sludge, polyps, wall thickening or pericholecystic fluid. COMMON BILE DUCT: Normal in caliber measuring 0.8 cm in diameter. RIGHT KIDNEY: No hydronephrosis. There is a lower pole echogenic focus which may represent a nonobstructing calculus. No other renal calculi or focal parenchymal lesions. The kidney measures 10.9 cm in maximum dimension. LEFT KIDNEY: Normal. No renal calculi. No hydronephrosis. No focal parenchymal lesions. The kidney measures 10.8 cm in maximum dimension. SPLEEN: Normal. The spleen measures 11.8 cm in maximum dimension. FREE FLUID: None. US/US abdomen comp w elastography IMPRESSION: 1. Echogenic liver consistent with steatosis. 2. Liver Elastograph y: Measurements are consistent with compensated advanced chronic karen er disease. When compared with prior exam, there is a statistically significant increase in liver stiffness (increase at least 10%). REFERENCE: Society of Radiologi sts in Ultrasound Liver Stiffness Thresholds (2019): LIVER STIFFNESS THRESHOLDS: *Liver Stiffness equ al or less than 1.3 m/s: High probability of being normal. *Liver Stiffness les s than 1.7 m/s: In the absence of other known clinical signs, rule s out compensated advanced chronic liver disease. *Liver Stiffness 1.7-2.1 m/s: Suggestive of compensated advanced chronic liver diseas e but need further test for confirmation. *Liver Stiffness ove r 2.1 m/s: Rules in compensated advanced chronic liver disease. *Liver Stiffness ove r 2.4 m/s: Suggestive of clinically significant portal hypertension. QUALITY OF DATA SET: *IQR/Median value eq ual or less than 0.15 implies a quality data set. *IQR/Median value ov er 0.15 implies a poor quality data set. SIGNIFICANT CHANGE F ROM PRIOR EXAM: Significant change i f liver stiffness measurement is 10% or greater from prior exam. OTHER CONSIDERATIONS: The stage of liver fibrosis may be overestimated in the setting of acute hepatitis, karen er inflammation, elevated liver function tests, hepatic vascular congestion, obstructive cholestasis, non-fasting state, and infiltrat alex diseases such as amyloidosis and lymphoma. In some patients with NAFLD, the liver stiffness thresholds for compensated advanced chronic liver disease may be lower. In causes other than viral hepatitis and NAFLD, liver stiffness thresholds are not well established. Electronically neo d by: Grey Canas MD 02/16/2024 10:57 PM [facility] Dictated By: Grey Canas MD Signed By: <Electronically signed by Grey Canas MD in OV> 02/16/24 1631 DD/ 7 TD/TT: 12/16/23946 Video Production Specialist: [facility] Drug Screen Urine Reviewed date:04/06/2024 05:07:04 PM Interpretation: Performing Lab:[facility], [address] [place] [phone] Notes/Report: Opiate Screen Urine Not Detected Not Detect Opiate cut-off is 300 ng/mL. Positive results are unconfirmed and should not be used for non-medical purposes. Barbiturates, Urine Not Detected Not Detect Barbiturate cut-off is 200 ng/mL. Positive results are unconfirmed and should not be used for non-medical purposes. Phencyclidine Screen Urine Not Detected Not Detect Phencyclidine cut-off is 25 ng/mL. Positive results are unconfirmed and should not be used for non-medical purposes. Amphetamine Screen Urine Not Detected Not Detect Amphetamine cut-off is 1000 ng/mL. Positive results are unconfirmed and should not be used for non-medical purposes. Benzodiazepines Screen Urine Not Detected Not Detect Benzodiazepine cut-off is 200 ng/mL. Positive results are unconfirmed and should not be used for non-medical purposes. Cocaine Screen Urine Not Detected Not Detect Cocaine cut-off is 300 ng/mL. Positive results are unconfirmed and should not be used for non-medical purposes. Cannabinoid Screen Urine Not Detected Not Detect Cannabinoid cut-off is 50 ng/mL. Positive results are unconfirmed and should not be used for non-medical purposes. Methadone Screen, Urine Not Detected Not Detect ng/mL Methadone cut-off is 300 ng/mL. Positive results are unconfirmed and should not be used for non-medical purposes. Fentanyl, urine Not Detected Not Detect Fentanyl cut-off is 1 ng/mL. Positive results are unconfirmed and should not be used for non-medical purposes. Oxycodone Screen Urine Not Detected Not Detect ng/mL Oxycodone cut-off is 100 ng/mL. Positive results are unconfirmed and should not be used for non-medical purposes. Buprenorphine Scr Not Detected Not Detect ng/mL Buprenorphine cut-off is 5 ng/mL. Positive results are unconfirmed and should not be used for non-medical purposes. Reason For Referral Referring Provider First Name Rogelio Referring Provider Last Name Magdalena Frank Referred Organization [facility] Referred Provider Jessee Machuca Referred Address [address] [place] [address],[place] [address],[place], [place],[address],[place] Referred Provider Specialty Gastroentero logy General Notes Leonie Wiggins 024 11:28:31 AM EDT > REQUESTED [place] REFERRAL FROM DR GAYTAN'S OFFICE [facility] FOR VISIT WITH DR MACHUCA ON 12-06-2023 Referral Priority Routine Medications Medication SIG (Take, Route, Frequency, Duration) Notes Start Date End Date Status Diclofenac Sodium Ac tive Metamucil 0.36 GM 2 capsules with 8 ou nces of liquid Orally Once or twice a day for constipation for 30 days 02/20/2021 Active Dulcolax (colon prep) 5 MG Take two tabs 2 days before the colonoscopy as directed, then take at 3:00 p.m and 7:00p.m. the day before the colonoscopy Orally two tablets two days before the colonoscopy, then two tablets twice a day for one daybefore the colonoscopy for 2 days 02/27/2021 Active Levothyroxine Sodium 125 MCG 1 tablet on an empty stomach in the morning Orally Once a day 08/24/2016 Active amLODIPine Besylate 5 MG TOME 1 TABLETA POR V A ORAL TODOS LOS D FOR 30 DAYS Oral for 90 Active Meloxicam 15 MG TOME 1 TABLETA POR V A ORAL TODOS LOS D Oral for 30 Active predniSONE 5 MG Oral for 15 Ac tive Losartan Potassium 25 MG 1 tablet Orally Once a day Active MiraLax (colon prep) 17 GM/SCOOP Take Miralax two days before the colonoscopy as directed, then take the Miralax 1 day before the colonoscopy as directed Orally Take the Miralax two days before the colonoscopy as directed, and then begin at 5:00 p.m. the day before the procedure as directed for 2 days 02/27/2021 Active Gabapentin 300 MG TOME 1 C PSULA POR V A ORAL DOS VECES AL D A Oral for 30 Active DULoxetine HCl 30 MG TAKE 1 CAPSULE (30 MG) BY MOUTH 2 TIMES DAILY. DO NOT CRUSH OR CHEW. Oral for 30 Active Immunizations Vaccine Route Administration Date Status Comme nts Influenza Unknown 12/19/2017 Administered Influenza Unknown 11/12/2018 Administered Influenza Unknown 11/12/2020 Administered Social History Alcohol Screen Question Answer Notes Did you have a drink containing alcohol in the p ast year? No Points 0 Interpretation Negative Section Notes: Denies alcohol and drug use. No sig. alcohol;nonsmoker No sig. alcohol;nonsmoker No sig. alcohol;nonsmoker No sig. alcohol;nonsmoker No sig. alcohol;nonsmoker No sig. alcohol;nonsmoker No sig. alcohol;nonsmoker No sig. alcohol;nonsmoker No sig. alcohol;nonsmoker Problems Problem Type SNOMED Code ICD Code Onset Dates Problem Status W/U Status Risk Notes Problem 775237504 Encounter for screening for malignant neoplasm of colon (Z12.11) Active confirmed Problem 247278054 History of adenomatous polyp of colon (Z86.010) Active confirmed Problem Screening for malignant neoplasm of rectum (384904381) Encounter for screening for malignant neoplasm of rectum (Z12.12) Active confirmed Problem History of gastrointestinal tract bypass (193373775) Intestinal bypass and anastomosis status (Z98.0) Active confirmed Problem 816907573 Elevated liver function tests (R79.89) Active confirmed Problem 215517965 Chronic hepatiti s C without hepatic coma (B18.2) Active confirmed Problem 805211031 Elevated liver enzymes (R74.8) Active confirmed Problem 715060631 Fatty liver (K76.0) Active confirmed Problem 695720202 History of colon cancer (Z85.038) Active confirmed Problem 12840661 Constipation, unspecified constipation type (K59.00) Active confirmed Problem History of malignant neoplasm of colon (113502587) Personal history of colon cancer (Z85.038) Active confirmed Problem 51488975546068 History of hepatitis C (Z86.19) Active confirmed Problem Cirrhosis - non-alcoholic (938551698) Liver fibrosis (K74.0) Active confirmed Problem Diverticulosis of colon (379919227) Diverticulosis of colon (K57.30) Active confirmed Problem 58073517 Liver fibrosis (K74.00) Active confirmed Vital Signs Blood pressure diastolic 00 mm Hg 12/06/2023 Height 66.25 in 12/06/2023 Blood pressure systolic 00 mm Hg 12/06/2023 Weight 176 lbs 12/06/2023 BMI 28.19 kg/m2 12/06/2023 Encounters Encounter Location Date Provider Diagnosis [facility] [place] [address] [place] [id number] 04/06/2024 Jessee Machuca Colon cancer screeni ng Z12.11 ; History of colon cancer Z85.038 ; Diverticulosis of colon K57.30 and 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 [facility] [address] [place] [address] 12/06/2023 Jessee Machuca History of hepatitis C Z86.19 ; Liver fibrosis K74.00 ; Personal history of colon cancer Z85.038 and History of adenomatous polyp of colon Z86.010 [facility] [address] [place] [address] 08/04/2023 Jessee Machuca [facility] [address] [place] [address] 12/06/2023 Jessee Machuca Assessments Encounter Date Diagnosis (ICD Code) Assessment Notes Treatment Notes Treatment Clinical Notes Section Notes 04/06/2024 Colon cancer screening (ICD-10 - Z12.11) 04/06/2024 History of colon cancer (ICD-10 - Z85.038) 12/06/2023 History of hepatitis C (ICD-10 - Z86.19) Overall, Bethany appears quite well. His liver disease appears quite stable and well-compensate d at the present time. He is not showing signs nor having any symptoms to suggest any progression of his liver disease. I did recommend a followup abdominal ultrasound along with some laboratories for followup of the previous hepatitis C and chronic liver disease. I also recommended a followup colonoscopy for further screening as March of 2024 will be 3 years since his last exam and he obviously has a significant history of his colon cancer and colon polyps. We did review the rationale for this in regard to colorectal cancer prevention and/or early detection. Full consent is obtained for this, including risks of bleeding and perforation. The procedure will be done with monitored anesthesia care. Bethany was comfortable with this plan. Thank you again for allowing me to participate in Bethany's care. I shall continue to keep you advised of his progress. 12/06/2023 Liver fibrosis (ICD-10 - K74.00) Overall, Bethany appears quite well. His liver disease appears quite stable and well-compensate d at the present time. He is not showing signs nor having any symptoms to suggest any progression of his liver disease. I did recommend a followup abdominal ultrasound along with some laboratories for followup of the previous hepatitis C and chronic liver disease. I also recommended a followup colonoscopy for further screening as March of 2024 will be 3 years since his last exam and he obviously has a significant history of his colon cancer and colon polyps. We did review the rationale for this in regard to colorectal cancer prevention and/or early detection. Full consent is obtained for this, including risks of bleeding and perforation. The procedure will be done with monitored anesthesia care. Bethany was comfortable with this plan. Thank you again for allowing me to participate in Bethany's care. I shall continue to keep you advised of his progress. 04/06/2024 Diverticulosis of colon (ICD-10 - K57.30) 12/06/2023 Personal history of colon cancer (ICD-10 - Z85.038) Overall, Bethany appears quite well. His liver disease appears quite stable and well-compensate d at the present time. He is not showing signs nor having any symptoms to suggest any progression of his liver disease. I did recommend a followup abdominal ultrasound along with some laboratories for followup of the previous hepatitis C and chronic liver disease. I also recommended a followup colonoscopy for further screening as March of 2024 will be 3 years since his last exam and he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
--- OUTSIDE RECORDS SUMMARY | 2024-07-26 11:51 | XMS_ITS | Encounter Summary ---
Author Organization [employer] Address [address] [facility] [address] [place] [address] Care Team Providers Care Non Licensed Nuclear Equipment Operator Name Role Phone Rogelio Yadav MD Primary Care Prov ider Encounter Details Date Type Department Care Team (Latest Contact Info) Description 01/09/2021 Abstract [facility] CONVERSIONS Dental, Provider, DDS Social History Tobacco [...] Info) Description 10/25/2024 1:00 PM EDT Telemedicine [facility] [address] [place] [address] Rogelio Yadav MD [address] [place] [address] documented as of this encounter Visit Diagnoses Not on filedocumented in this encounter Care Teams Non Licensed Nuclear Equipment Operator Relationship Specialty Start Date End Date Rogelio Yadav MD [address] [place] [address] PCP - General Internal Medicine 07/31/19 documented as of this encounter
--- OUTSIDE RECORDS SUMMARY | 2024-07-26 11:51 | XMS_ITS | Encounter Summary ---
Author Organization [employer] Address [address] [facility] [address] [place] [address] Care Team Providers Care Barber Stylist Name Role Phone Rogelio Yadav MD Primary Care Prov ider Encounter Details Date Type Department Care Team ([facility] st Contact Info) Description 07/25/2024 2:15 PM EDT Telemedicine [facility] MED [facility]ED[facility] [address] [place], [place] [phone] Rogelio Yadav MD [address] [place] [address] Primary hypertension (Primary Dx); Acquired hypothyroidism; Fibromyalgia Social History Tobacco Use Types Packs/Day Years [...] AM EDT documented as of this encounter Progress Notes * Rogelio Marie MD - 07/25/2024 2:15 PM EDT Subjective Patient ID: Jose Manuel Mejia is a 59 y.o. male who presents for No chief complaint on file.. Hypertension This is a chronic problem. Pertinent negatives include no chest pain, headaches, palpitations or shortness of breath. Review of Systems Respiratory: Negative for shortness of breath. Cardiovascular: Negative for chest pain and palpitations. Neurological: Negative for headaches. Objective Physical Exam Neurological: General: No focal deficit present. Mental Status: He is oriented to person, place, and time. Psychiatric: Mood and Affect: Mood normal. Behavior: Behavior normal. Assessment/Plan Problem List Items Addressed This Visit Primary hypertension - Primary Controlled, recently saw cardiology and losartan was decreased, will order new labs, follow up in 4months Relevant Medications losartan (Cozaar) 25 MG tablet Other Relevant Orders Comprehensive Metabolic Panel CBC auto differential Lipid Panel, Standard Acquired hypothyroidism Will order new labs, patient feeling fatigue and tired Relevant Orders TSH W/Reflex to FT4 Fibromyalgia documented in this encounter Miscellaneous Notes * Assessment & Plan Note - Rogelio Marie MD - 07/25/2024 2:39 PM EDTAssociated Problem(s): Acquired hypothyroidism Will order new labs, patient feeling fatigue and tired * Assessment & Plan Note - Rogelio Marie MD - 07/25/2024 2:37 PM EDTAssociated Problem(s): Primary hypertension Controlled, recently saw cardiology and losartan was decreased, will order new labs, follow up in 4months documented in this encounter Plan of Treatment Upcoming Encounters Date Type Department Care Team (Late st Contact Info) Description 10/25/2024 1:00 PM EDT Telemedicine [facility] [address] [place] [address] Rogelio Yadav MD [address] [place] [address] Scheduled Orders Name Type Priority Associated Diagnoses Orde r Schedule Comprehensive Metabolic Panel Lab Routine Primary hypertension Expected: 07/25/2024 (Approximate), Expires: 07/25/2025 CBC auto differential Lab Routine Primary hypertension Expected: 07/25/2024 (Approximate), Expires: 07/25/2025 Lipid Panel, Standard Lab Routine Primary hypertension Expected: 07/25/2024 (Approximate), Expires: 07/25/2025 TSH W/Reflex to FT4 Lab Routine Acquired hypothyroidism Expected: 07/25/2024 (Approximate), Expires: 07/25/2025 documented as of this encounter Visit Diagnoses Diagnosis Primary hypertension- Primary Unspecified essential hypertension Acquired hypothyroidism Unspecified hypothyroidism Fibromyalgia Unspecified myalgia and myositis documented in this encounter Additional Health Concerns Assessment Noted Time PHQ-9 Depression Total Score: 0 08/24/19 23 2:52 PM EDT documented as of this encounter Care Teams Barber Stylist Relationship Specialty Start Date End Date Rogelio Yadav MD [address] [place] [address] PCP - General Internal Medicine 07/31/19 documented as of this encounter
--- OUTSIDE RECORDS SUMMARY | 2024-07-26 11:51 | XMS_ITS ---
Author Organization [facility] Address [address] [place] [phone] Care Team Providers Care Supervisor Research Kennel Name Role Phone Kylie jimenez, Rogelio Primary Care Prov ideJessee Charles [phone] REASON FOR VISIT bowel prep-? 2 day prep Medications Medication SIG (Take, Route, Frequency, Duration) Notes Start Date End Date Status Dulcolax (colon prep) 5 MG Take two tabs 2 days before the colonoscopy as directed, then take at 3:00 p.m and 7:00p.m. the day before the colonoscopy Orally two tablets two days before the colonoscopy, then two tablets twice a day for one daybefore the colonoscopy for 2 days 02/27/2021 Active MiraLax (colon prep) 17 GM/SCOOP Take Miralax two days before the colonoscopy as directed, then take the Miralax 1 day before the colonoscopy as directed Orally Take the Miralax two days before the colonoscopy as directed, and then begin at 5:00 p.m. the day before the procedure as directed for 2 days 02/27/2021 Active Encounters Encounter Location Date Provider Diagnosis [facility] [address] [place] [phone] 12/06/2023 Jessee Bear Plan Of Treatment Medication Medication Name Sig Start Date Stop Date Notes Dulcolax (colon prep) 5 MG Take two tabs 2 days before the colonoscopy as directed, then take at 3:00 p.m and 7:00p.m. the day before the colonoscopy Orally two tablets two days before the colonoscopy, then two tablets twice a day for one daybefore the colonoscopy for 2 days 02/27/2021 MiraLax (colon prep) 17 GM/SCOOP Take Miralax two days before the colonoscopy as directed, then take the Miralax 1 day before the colonoscopy as directed Orally Take the Miralax two days before the colonoscopy as directed, and then begin at 5:00 p.m. the day before the procedure as directed for 2 days 02/27/2021 Progress Notes * BETHANY PARKER ADOB:1965 (58 yo M)Acc No.[id number]:12/06/2023 Patient:?BETHANY PARKER :1965???Age:58 Y???Sex:Male Address:[address] [place] [address] * Refills? Refill MiraLax (colon prep) Powder, 17 GM/SCOOP, Orally, 2, Take Miralax two days before the colonoscopy as directed, then take the Miralax 1 day before the colonoscopy as directed, Take the Miralax two days before the colonoscopy as directed, and then begin at 5:00 p.m. the day before the procedure as directed, 2 days, Refills=0 Refill Dulcolax (colon prep) Tablet Delayed Release, 5 MG, Orally, 6, Take two tabs 2 days before the colonoscopy as directed, then take at 3:00 p.m and 7:00p.m. the day before the colonoscopy, two tablets two days before the colonoscopy, then two tablets twice a day for one daybefore the colonoscopy, 2 days, Refills=0 * true * Date:? Generated for Matt connor/Chad/eTransmitting on:?07/26/2024 11:50 AM EDT
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
--- OUTSIDE RECORDS SUMMARY | 2024-07-26 11:52 | XMS_ITS ---
Author Organization [facility] Address [address] [place] [id number] Care Team Providers Care Dye Stand Loader Name Role Phone Kylie jimenez, [place] Primary Care Prov ideJessee Charles Unavailable [phone] REASON FOR VISIT hx polyps,hx colon ca Encounters Encounter Location Date Provider Diagnosis [facility] [address] [place] [phone] 04/06/2024 Jessee Bear Colon cancer scree mon[place]na Z12.11 ; History of colon cancer Z85.038 [...] Of Treatment No Information Progress Notes * BETHANY PARKER ADOB:1965 (59 yo M)Acc No.[id number]:04/06/2024 COLON WITH MAC Patient:?PARKER, BETHANY Hendrix Provider:?Jessee Bear MD :1965???Age:58 Y???Sex:Male Caleb e:04/06/2024 Address:[address] [place], [place] [id number] Pcp:Rogelio cameron md Subjective: * Chief Complaints: * ???1. Hx polyps,hx colon ca. * Medical History:? Objective: * Vitals:? 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 Plan: * Treatment: * Procedure Codes:?36265 DIAGN OSTIC COLONOSCOPY, Modifiers: 33 * * The named appointment provid er may or may not be the originator of this progress note, and it is not deemed complete until electronically signed by the appointment provider. Sign off status: Pending * Provider:?Jessee Bear MD Date:? 025 Generated for Matt connor/Chad/eTransmitting on:?07/26/2024 11:51 AM EDT
[2024-07-26 12:06] LABS: MANUAL DIFF FLAG NO
[2024-07-26 12:14] LABS: Basophils Percent Auto 0.9 % (0-2); Eosinophils Absolute Auto 0.1 X10*3/uL (0.0-0.4); Eosinophils Percent Auto 2.8 % (0-4); Hematocrit 45.4 % (42.0-52.0); Hemoglobin 15.2 g/dl (14.0-18.0); Imm Gran Abs Auto 0.02 X10*3/uL (0.00-0.03); Imm Gran Pct Auto 0.5 % (0.0-0.4); Lymphocytes Absolute Auto 1.4 X10*3/uL (1.2-4.9); Lymphocytes Percent Auto 31.6 % (20-40); Mean Corpuscular HGB Conc 33.5 g/dl (31.0-36.0); Mean Corpuscular Volume 86.5 fL (80.0-98.0); Mean Platelet Volume 12.1 fL (9.4-12.4); Monocytes Absolute Auto 0.6 X10*3/uL (0.1-1.2); Monocytes Percent Auto 13.2 % (2-11); Neutrophils Absolute Auto 2.2 x10*3/uL (2.0-8.3); Platelet Count 130 X10*3/uL (160-400); Red Blood Count 5.25 X10*6/uL (4.60-5.80); Red Cell Distribution Width 13.7 % (11.0-16.0); White Blood Count 4.3 X10*3/uL (4.8-10.8)
[2024-07-26 12:34] LABS: Alanine Aminotransferase 37 U/L (0-40); Albumin Level 4.1 g/dL (3.5-5.0); Alkaline Phosphatase 52 U/L (39-117); Anion Gap 12 (12-20); Aspartate Amino Transferase 31 U/L (5-37); Bilirubin Total 0.6 mg/dL (0.0-1.0); Blood Urea Nitrogen 21 mg/dL (9-16); Calcium 9.5 mg/dL (8.4-10.2); Carbon Dioxide 24 mmol/L (22-29); Chloride 109 mmol/L (96-108); Cholesterol 179 mg/dL (<200); Estimated Glomerular Filt Rate > 60; Glucose Random 104 mg/dL (60-115); HDL Cholesterol 38 mg/dL (>40); LDL Cholesterol Calculated 122 mg/dL (<100); Sodium 141 mmol/L (135-145); Total Protein 7.5 g/dL (6.5-8.0); Triglycerides 96 mg/dL (<150)
[2024-07-26 12:53] LABS: TSH reflex Free T4 6.31 uIU/mL (0.32-4.0)
[2024-07-26 13:25] LABS: Free T4 (Free Thyroxine) 1.07 ng/dL (0.71-1.85)
== END 2024-07-26 10:45 | disposition home or self-care (01) ==
LOC: HO.CHCLDS 10:44
PROVIDERS: Visit Provider Internal Medicine
DX: I10 Essential (primary) hypertension (principal); E03.9 Hypothyroidism, unspecified
CPT/HCPCS: 36415; 80053; 80061; 84439; 84443; 85025

== ENCOUNTER 2024-08-16 14:42 | Outpatient (AMB) | payer OTHER, SELFPAY ==
[2024-08-16 14:45] VITALS: BP 126/68; PULSE 69; O2SAT 97; BMI 29.1
--- NOTE | 2024-08-16 14:45 | A.OFFVIS_ITS ---
Vital Signs 08/16/24 14:45 Height 5 ft 6 in Weight 180 lb 8.937 oz BMI 29.1 BP 126/68 Blood Pressure Location Lt brachial Position Sitting Pulse 69 Pulse Source Pulse Oximeter Pulse Oximetry (%) 97 Oxygen Delivery Method Room Air Intake Visit Reasons: follow up Intake Note: Patient presents for follow up on osteoarthritis in shoulders, states it still bothers him. Double Needle Stitcher Required: Yes Double Needle Stitcher Name: Geraldine [id number] Allergies No Known Allergies Allergy (Mild, Verified 08/16/24 14:50) NKA Medication List - Last Reconciled 08/16/24 by Maria T Robles MD amlodipine 10 mg PO DAILY arm brace (Wrist Brace) use at night as directed blood pressure test kit-large As directed levothyroxine 125 mcg PO DAILY HPI Comments Details: Patient is a 58-year-old male with hypertension, hypothyroidism, polyarticular osteoarthritis and fibromyalgia here today for follow up Interval History: Patient last seen 02/2024 with me. At that time he was complaining of bilateral shoulder pain. His XRs showed bilateral mild AC joint OA so he received bilateral AC joint steroid injections. Patient states the injections did not help Still with bilateral shoulder pain R>L Unable to raise his hand above his head Rheumatologic History: Diagnosed with fibromyalgia and osteoarthritis Has a positive RF but no evidence of inflammatory arthritis on examination Current Rheumatology Medication(s): [facility] Medical History Colon cancer Osteoarthritis of shoulders, bilateral Elevated uric acid in blood Decreased ROM of right shoulder Chronic right shoulder pain Hx of pilonidal cyst Rheumatoid arthritis Polycythemia Colon cancer Hx of drug abuse Hypothyroidism Hepatitis C Polyarthralgia Surgical History History of knee replacement procedure of left knee History of left knee replacement Hx of colonoscopy Hx of colonoscopy with polypectomy History of colon resection (~12/2021) Hx of skin graft Hx of dilation of urethra Family History Father Esophageal cancer Mother Uterine cancer Social History Household Members: Family Housing: House Are you a primary long term care social worker to a significant other at home: No Do you presently have visiting nurse or other home services: No Alcohol intake: current Alcohol intake frequency: holidays/special occasions only Patient Tobacco Use Status: Never used Tobacco Substance Use Type: Marijuana service: No Current occupational status: employed 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 Review of Systems Const Details: Review of Systems Constitutional: Denies fever, chills, weight loss ENT: Denies vision changes, eye pain or eye redness, dental caries, dry mouth GI: Denies nausea, vomiting, diarrhea, abdominal pain, change in BM Pulm: Denies SOB, PEREIRA, hemoptysis, wheezing Cards: Denies chest pain, palpitations Skin: Denies Raynaud's, rash, nail changes, photosensitivity, BALL ROLLING MACHINE OPERATOR: Denies headaches, weakness, paresthesias, recurrent falls MSK: as per HPI All other systems reviewed and are unremarkable except noted above Physical Exam Vital Signs: Last Vital Signs Pulse 69 08/16/24 14:45 BP 126/68 08/16/24 14:45 Pulse Ox 97 08/16/24 14:45 Oxygen Delivery Method Room Air 08/16/24 14:45 BMI result Body Mass Index 29.1 Vital signs reviewed Physical Examination CONSTITUITIONAL Patient alert and cooperative. Well appearing and in no apparent painful distress HEENT Conjunctiva and sclera clear. ?Pupils equal round and reactive to light. ?No lymphadenopathy. ? CHEST/RESPIRATORY SYSTEM Normal respiratory effort and able to speak in complete sentences. ?Clear to auscultation bilaterally. ?No crackles, rales, rhonchi, wheezes heard. CARDIAC SYSTEM Regular rate and rhythm. ?S1 and S2 heard no murmurs. ?Radial pulses intact bilaterally MSK Hands: ?Able to make a fist. No synovitis noted to the MCPs, PIPs or DIPs. ?No tenderness to palpation of these joints. Herbeden's nodes Wrists: ?Full range of motion at the wrists without pain. ?No tenderness to palpation or synovitis noted to the wrists. Elbows: Full range of motion without pain. No tenderness, weakness, swelling, increased warmth or erythema. Shoulders: Decreased active ROM bilaterally to 90 degrees. Left passive ROM full but right passive ROM still limited 2/2 pain Positive empty can test on the right associated with weakness Knees: ?Full range of motion. ?No tenderness, swelling, increased warmth or erythema.?No effusion or crepitations Ankles: Full range of motion. ?No tenderness, swelling, increased warmth or erythema.? Feet: ?Negative squeeze test. ?No tenderness to palpation or swelling of the MTPs. Tender points:?No tenderness to palpation of the bilateral trapezius, supraspinatus, greater trochanters, anterior costochondral junctions, bilateral gluteal areas, bilateral suboccipital muscle insertions SKIN Skin intact without rashes. Results Reviewed Results Reviewed: Shoulder XR Bilateral FINDINGS: There is mild loss of right AC joint space. There is no visible acute fracture, dislocation or subluxation seen. The soft tissues are normal. FINDINGS: Acromioclavicular joint space narrowing. Glenohumeral joint is maintained. No fracture or dislocation. Visualized right lung and ribs are unremarkable. Assessment & Plan Assessment & Plan (1) Fibromyalgia: Code(s): M79.7 - Fibromyalgia Category: Medical Plan: #Fibromyalgia Patient is a 59-year-old male with fibromyalgia here today for follow up. Baclofen was discontinued at the last visit to try low-dose naltrexone however patient unable to afford the compounding cost of the low-dose naltrexone. Currently not on any medication for the fibromyalgia. Recommending physical exercise and non pharmacological management at this time. Plan - Non pharmacologic management - RTC 6 months (2) Osteoarthritis of shoulders, bilateral: Code(s): M19.011 - Primary osteoarthritis, right shoulder; M19.012 - Primary osteoarthritis, left shoulder Category: Medical Qualifiers: Osteoarthritis type: primary Qualified Code(s): M19.011 - Primary osteoarthritis, right shoulder; M19.012 - Primary osteoarthritis, left shoulder Plan: #OA Bilateral AC joint Did not have any improvement from the corticosteroid injection done at the last visit. Continues to have shoulder pain right worse than left. Positive impingement tests with weakness likely indicative of a rotator cuff muscle issue. We will check MRI of the right shoulder as well as give him ibuprofen Plan - Ibuprofen 800mg tid - MR Right shoulder Plan I spent 20 minutes reviewing the record and labs, taking a history, examining the patient, discussing the treatment plan, ordering diagnostic work up and documenting in the medical record Orders: Orders MR shoulder RT wo con Today M19.011 - Primary osteoarthritis, right shoulder, M19.012 - Primary osteoarthritis, left shoulder, M25.611 - Stiffness of right shoulder, not elsewhere classified Medications: New ibuprofen 800 mg PO TID 30 days 90 tabs 0RF M19.011 - Primary osteoarthritis, right shoulder, M19.012 - Primary osteoarthritis, left shoulder Coding Level of Care Code Est Pt Level 3 (85634) Diagnoses Fibromyalgia M79.7 Primary osteoarthritis of both shoulders M19.011; M19.012 Osteoarthritis type: primary
--- OUTSIDE RECORDS SUMMARY | 2024-08-16 17:19 | XMS_ITS | Patient Health Record ---
Author Organization [facility] Address [address] [place] [address] Care Team Providers Care Sander Hand Name Role Phone Kylie jimenez, Rogelio Primary Care Prov ider Unavailable Jessee Machuca Unavailable [phone] Allergies No Known Allergies Results Component Value Reference Range Notes Complete Blood Count Auto Di ff Reviewed date:12/17/2023 11:17:43 PM Interpretation: Performing Lab:[facility], [address] [place] [phone] Notes/Report: White Blood Count 5.2 4.8-10.8 X10*3/uL [...] INR Reviewed date:12/16/2023 04:21:13 PM Interpretation: Performing Lab:[address] [address] Notes/Report: Prothrombin Time 11.3 10.9-12.4 SEC INTERNATIONAL [...] Panel Reviewed date:12/16/2023 04:21:04 PM Interpretation: Performing Lab:[address] [address] Notes/Report: Bilirubin Total 0.8 0.0-1.0 mg/dL Bilirubin Direct 0.3 0.0-0.5 mg/dL Aspartate Amino Transferase 23 5-37 U/L Alanine Aminotransferase 28 0-40 U/L Total Protein 7.4 6.5-8.0 g/dL Albumin Level 4.1 3.5-5.0 g/dL Alkaline Phosphatase 48 39-117 U/L Alpha Fetoprotein Reviewed date:12/23/2023 12:47:18 PM Interpretation: Performing Lab:[address] [address] Notes/Report: Alpha Fetoprotein 2.1 <6.1 ng/mL This test was performed using the Aaliyah Alejandra chemiluminescent method. Values obtained from different assay methods cannot be used interchangeably. AFP levels, regardless of value, should not be interpreted as absolute evidence of the presence or absence of disease. THIS TEST WAS PERFORMED AT: [facility] [address] [place] [phone] STUART TREVINO MD Liver Fibrosis Pnl Reviewed date:12/25/2023 10:06:16 PM Interpretation: Performing Lab:[facility], [address] [place] [phone] Notes/Report: Liver Fibrosis Score 0.48 Liver Fibrosis [...] a>0.62 and a<=1.00 : A3 (severe activity) OGI-Rbqcj-5-Macroglobuli n 310 106-279 mg/dL FIB-Haptoglobin 118 43-212 mg/dL FIB-Apolipoprotein A1 141 94-176 mg/dL FIB-Total Bilirubin 0.6 0.2-1.2 mg/dL FIB-GGT 20 3-85 U/L FIB-ALT 25 9-46 U/L Reference ID [id number] Footnote SEE NOTE The reliability of results [...] The performance characteristics have been determined by [employer]. It has not been cleared or approved by the U.S. Food and Drug Administration. Performance characteristics refer to the analytical performance of the test. KeyMe, the associated logo, Happy Days - A New Musical and all associated Whyd pitts are the registered trademarks of [employer]. All third alliance party pitts - (R) and (TM) - are the property of their respective owners. (C) 9867-2138 [employer]. All rights reserved. THIS TEST WAS PERFORMED AT: [employer] [facility] [address] [place] [address] IGOR TANG MD,PHD,CONNOR US abdomen comp w elastograp hy Reviewed date:04/05/2024 05:29:56 PM Interpretation: Performing Lab: Notes/Report: [address] [address] Ultrasound Report Signed Patient: Bethany Webb MR#: [id number] 4 : 1965 Acct:[id number] Age/Sex: 58 / M ADM Date: 12/16/23 Loc: HO.US Attending Dr: Jessee Machuca MD Ordering Physician: Jessee Machuca MD Date of Service: 12/16/23 Procedure(s): US abdomen comp w elastography Accession Number(s): [id number] cc: Rogelio Yadav MD; Jessee Machuca MD [...] by: Grey Canas MD 02/16/2024 10:57 PM [facility] Dictated By: Grey Canas MD Signed By: <Electronically signed by Grey Canas MD in OV> 02/16/24 2257 DD/ 0908 TD/TT: 12/16/23 0947 Account Solutions Analyst: [address] [address] Ultrasound Report Signed Patient: Bethany Webb MR#: [id number] 4 : 1965 Acct:[id number] Age/Sex: 58 / M ADM Date: 12/16/23 Loc: HO.US Attending Dr: Jessee Machuca MD Ordering Physician: Jessee Machuca MD Date of Service: 12/16/23 Procedure(s): US abdomen comp w elastography Accession Number(s): [id number] cc: Rogelio Yadav MD; Jessee Machuca MD [...] by: Grey Canas MD 02/16/2024 10:57 PM [facility] Dictated By: Grey Canas MD Signed By: <Electronically signed by Grey Canas MD in OV> 02/16/24 6928 DD/ 7 TD/TT: 12/16/23946 Account Solutions Analyst: HARSHAL Drug Screen Urine Reviewed date:04/06/2024 05:07:04 PM Interpretation: Performing Lab:[facility], [address] [place] [phone] Notes/Report: Opiate Screen Urine Not Detected Not [...] Provider Last Name Magdalena Frank Referred Organization [facility] Referred Provider Jessee Machuca Referred Address [address] [place] [address],[place] [address],[place], [place],[address],[place] Referred Provider Specialty Gastroentero logy General Notes Leonie Wiggins 024 11:28:31 AM EDT > REQUESTED [place] REFERRAL FROM DR GAYTAN'S OFFICE [facility] FOR VISIT WITH DR MACHUCA ON 12-06-2023 [...] Problem Status W/U Status Risk Notes Problem 592544771 Encounter for screening for malignant neoplasm of colon (Z12.11) Active confirmed Problem 311514103 History of adenomatous polyp of colon (Z86.010) Active confirmed Problem Screening for malignant neoplasm of rectum (008709534) Encounter for screening for malignant neoplasm of rectum (Z12.12) Active confirmed Problem History of gastrointestinal tract bypass (869814407) Intestinal bypass and anastomosis status (Z98.0) Active confirmed Problem 635044817 Elevated liver function tests (R79.89) Active confirmed Problem 461833260 Chronic hepatiti s C without hepatic coma (B18.2) Active confirmed Problem 068346270 Elevated liver enzymes (R74.8) Active confirmed Problem 207406497 Fatty liver (K76.0) Active confirmed Problem 860207270 History of colon cancer (Z85.038) Active confirmed Problem 75267561 Constipation, unspecified constipation type (K59.00) Active confirmed Problem History of malignant neoplasm of colon (657744080) Personal history of colon cancer (Z85.038) Active confirmed Problem 43022163859546 History of hepatitis C (Z86.19) Active confirmed Problem Cirrhosis - non-alcoholic (270909208) Liver fibrosis (K74.0) Active confirmed Problem Diverticulosis of colon (443931634) Diverticulosis of colon (K57.30) Active confirmed Problem 82392261 Liver fibrosis (K74.00) Active confirmed Vital Signs Blood pressure diastolic 00 mm Hg 12/06/2023 Height 66.25 in 12/06/2023 Blood pressure systolic 00 mm Hg 12/06/2023 Weight 176 lbs 12/06/2023 BMI 28.19 kg/m2 12/06/2023 Encounters Encounter Location Date Provider Diagnosis [facility] Outpatient [address] [place], [place] [phone] 04/06/2024 Jessee Machuca Colon cancer screeni ng Z12.11 ; History of colon cancer Z85.038 ; Diverticulosis of colon K57.30 and 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 [facility] [address] [place] [address] 12/06/2023 Jessee Machuca History of hepatitis C Z86.19 ; Liver fibrosis K74.00 ; Personal history of colon cancer Z85.038 and History of adenomatous polyp of colon Z86.010 [facility] [address] [place] [address] 12/06/2023 Jessee Machuca Assessments Encounter Date Diagnosis [...] again for allowing me to participate in Btehany's care. I shall continue to keep you [...] Insured Coverage Start Date Coverage End Date [facility] [employer] [facility] [address] [address] [place], [place] [phone] [id number] BETHANY WEBB Self - patient is the [...] remained nondetectable in 02/2015, 11/2018, 02/2021. Denies NC,DM,CVA,Lung disease,renal dise ase 2 > 2cm tubular [...]
== END 2024-08-16 15:38 | disposition home or self-care (01) ==
LOC: HO.RHE 14:43
PROVIDERS: PCP Internal Medicine; Visit Provider Student in an Organized Health Care Education/Training Program
DX: M79.7 Fibromyalgia (principal); M19.011 Primary osteoarthritis, right shoulder; M19.012 Primary osteoarthritis, left shoulder
CPT/HCPCS: 99213

== ENCOUNTER → 2024-08-16 14:42 | Outpatient (BNVA) | payer OTHER, SELFPAY | PROVIDERS: PCP Internal Medicine; Visit Provider Student in an Organized Health Care Education/Training Program | DX: M79.7 Fibromyalgia (principal); M19.011 Primary osteoarthritis, right shoulder; M19.012 Primary osteoarthritis, left shoulder | CPT/HCPCS: 99212 ==

== ENCOUNTER 2024-10-19 11:48 | Outpatient (REF) | payer OTHER, SELFPAY ==
--- OUTSIDE RECORDS SUMMARY | 2024-10-19 11:50 | XMS_ITS | Patient Health Record ---
Author Organization [facility] Address [address] [place] [address] Care Team Providers Care Consumer Relations Specialist Name Role Phone Kylie jimenez, Rogelio Primary Care Prov ider Unavailable Jessee Bear Unavailable [phone] Allergies No Known Allergies Results Component Value Reference Range Notes Complete Blood Count Auto Di ff Reviewed date:12/17/2023 11:17:43 PM Interpretation: Performing Lab:[facility], [address] [place] [address] Notes/Report: White Blood Count 5.2 4.8-10.8 X10*3/uL [...] 0.0-0.2 /100WBC Neutrophils Absolute Auto 2.7 2.0-8.3 x10*3/u L Imm Gran Abs Auto 0.01 0.00-0.03 X10*3/uL Lymphocytes Absolute Auto 1.6 1.2-4.9 X10*3/u L Monocytes Absolute Auto 0.7 0.1-1.2 X10*3/uL Eosinophils Absolute Auto 0.2 0.0-0.4 X10*3/u L Basophils Absolute Auto 0.0 0.0-0.2 X10*3/uL NRBC Abs Auto 0.000 0.0-0.012 X10*3/uL Prothrombin Time INR Reviewed date:12/16/2023 04:21:13 PM Interpretation: Performing Lab:[address] [address] Notes/Report: Prothrombin Time 11.3 10.9-12.4 SEC INTERNATIONAL [...] Panel Reviewed date:12/16/2023 04:21:04 PM Interpretation: Performing Lab:[address] [address] Notes/Report: Bilirubin Total 0.8 0.0-1.0 mg/dL Bilirubin Direct 0.3 0.0-0.5 mg/dL Aspartate Amino Transferase 23 5-37 U/L Alanine Aminotransferase 28 0-40 U/L Total Protein 7.4 6.5-8.0 g/dL Albumin Level 4.1 3.5-5.0 g/dL Alkaline Phosphatase 48 39-117 U/L Alpha Fetoprotein Reviewed date:12/23/2023 12:47:18 PM Interpretation: Performing Lab:[address] [address] Notes/Report: Alpha Fetoprotein 2.1 <6.1 ng/mL This test was performed using the Aaliyah Alejandra chemiluminescent method. Values obtained from different assay methods cannot be used interchangeably. AFP levels, regardless of value, should not be interpreted as absolute evidence of the presence or absence of disease. THIS TEST WAS PERFORMED AT: [facility] [address] [place] [phone] STUART TREVINO MD Liver Fibrosis Pnl Reviewed date:12/25/2023 10:06:16 PM Interpretation: Performing Lab:[facility], [address] [place] [address] Notes/Report: Liver Fibrosis Score 0.48 Liver Fibrosis [...] a>0.62 and a<=1.00 : A3 (severe activity) GYK-Eirmm-1-Macroglobulin 310 106-279 mg/dL FIB-Haptoglobin 118 43-212 mg/dL FIB-Apolipoprotein A1 141 94-176 mg/dL FIB-Total Bilirubin 0.6 0.2-1.2 mg/dL FIB-GGT 20 3-85 U/L FIB-ALT 25 9-46 U/L Reference ID [id number] Footnote SEE NOTE The reliability of results [...] The performance characteristics have been determined by [facility]. It has not been cleared or approved by the U.S. Food and Drug Administration. Performance characteristics refer to the analytical performance of the test. Vida[employer], the associated logo, [employer]Point and all associated [employer] pitts are the registered trademarks of [employer]. All third democrat pitts - (R) and (TM) - are the property of their respective owners. (C) 4492-6043 [employer]. All rights reserved. THIS TEST WAS PERFORMED AT: [address] [facility] [address] [place] [address] IGOR TANG MD,PHD,CONNOR US abdomen comp w elastograp hy Reviewed date:04/05/2024 05:29:56 PM Interpretation: Performing Lab: Notes/Report: [address] [address] Ultrasound Report Signed Patient: Jose Manuel Webb MR#: [id number] 4 : 1965 Acct:[id number] Age/Sex: 58 / M ADM Date: 12/16/23 Loc: HO.US Attending Dr: Jessee Bear MD Ordering Physician: Jessee Bear MD Date of Service: 12/16/23 Procedure(s): US abdomen comp w elastography Accession Number(s): [id number] cc: Rogelio Yadav MD; Jessee Bear MD EXAMINATION: US COMPLETE ABDOMEN WITH LIVER [...] of Radiologists in Ultrasound Liver Stiffness Thresholds (2019): LIVER STIFFNESS THRESHOLDS: *Liver Stiffness equal or [...] by: Grey Canas MD 02/16/2024 10:57 PM [facility] Dictated By: Grey Canas MD Signed By: <Electronically signed by Grey Canas MD in OV> 02/16/24 2257 DD/ 7 TD/TT: 12/16/23 0947 [employer] Loading Supervisor: HARSHAL Drug Screen Urine Reviewed date:04/06/2024 05:07:04 PM Interpretation: Performing Lab:[facility], [address] [place] [address] Notes/Report: Opiate Screen Urine Not Detected Not [...] used for non-medical purposes. Reason For Referral No Information Medications Medication SIG (Take, Route, Frequency, Duration) [...] Problem Status W/U Status Risk Notes Problem 251004316 Encounter for screening for malignant neoplasm of colon (Z12.11) Active confirmed Problem 266055712 History of adenomatous polyp of colon (Z86.010) Active confirmed Problem Screening for malignant neoplasm of rectum (205587931) Encounter for screening for malignant neoplasm of rectum (Z12.12) Active confirmed Problem History of gastrointestinal tract bypass (957022202) Intestinal bypass and anastomosis status (Z98.0) Active confirmed Problem 968277874 Elevated liver function tests (R79.89) Active confirmed Problem 197947285 Chronic hepatiti s C without hepatic coma (B18.2) Active confirmed Problem 008779462 Elevated liver enzymes (R74.8) Active confirmed Problem 475631581 Fatty liver (K76.0) Active confirmed Problem 169560117 History of colon cancer (Z85.038) Active confirmed Problem 78395072 Constipation, unspecified constipation type (K59.00) Active confirmed Problem History of malignant neoplasm of colon (259724347) Personal history of colon cancer (Z85.038) Active confirmed Problem 13185536614744 History of hepatitis C (Z86.19) Active confirmed Problem Cirrhosis - non-alcoholic (867514576) Liver fibrosis (K74.0) Active confirmed Problem Diverticulosis of colon (921664364) Diverticulosis of colon (K57.30) Active confirmed Problem 32727276 Liver fibrosis (K74.00) Active confirmed Vital Signs Blood pressure diastolic 00 mm Hg 12/06/2023 Height 66.25 in 12/06/2023 Blood pressure systolic 00 mm Hg 12/06/2023 Weight 176 lbs 12/06/2023 BMI 28.19 kg/m2 12/06/2023 Encounters Encounter Location Date Provider Diagnosis [facility] [address] [place], [place] [phone] 04/06/2024 Jessee Bear Colon cancer screeni ng Z12.11 ; History of colon cancer Z85.038 ; Diverticulosis of colon K57.30 and 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 [facility] [address] [place] [address] 12/06/2023 Jessee Bear History of hepatitis C Z86.19 ; Liver fibrosis K74.00 ; Personal history of colon cancer Z85.038 and History of adenomatous polyp of colon Z86.010 [facility] [address] [place] [address] 12/06/2023 Jessee Bear Assessments Encounter Date Diagnosis (ICD Code) Assessment [...] Insured Coverage Start Date Coverage End Date [facility] [employer] [facility] [address] [address] [place], [place] [phone] [id number] JOSE MANUEL WEBB Self - patient is the insured [...] remained nondetectable in 02/2015, 11/2018, 02/2021. Denies SC,DM,CVA,Lung disease,renal dise ase 2 > 2cm tubular [...]
--- OUTSIDE RECORDS SUMMARY | 2024-10-19 11:50 | XMS_ITS | Encounter Summary ---
Author Organization [employer] Address [address] [facility] [address] [facility] [address] [place] [address] Care Team Providers Care Lead Retail Sales Associate Name Role Phone Rogelio Yadav MD Primary Care Prov ider Encounter Details Date Type Department Care Team (Late st Contact Info) Description 06/25/2023 Orders Only [facility] [address] [place] [address] ProviderEmerita MD Social History Tobacco Use Types [...] Info) Description 10/25/2024 1:00 PM EDT Telemedicine [facility] [address] [place] [address] Rogelio Yadav MD [address] [place] [address] documented as of this encounter Procedures Procedure [...] * Hm Colonoscopy (10/15/2019 7:22 AM EDT) [facility] Provider HEALTH MAINTENANCE Final Result * Hm Colonoscopy (04/21/2018 7:21 AM EST) Historical Provider HEALTH MAINTENANCE Final Result * Hm Colonoscopy (08/17/2016 7:20 AM EDT) [facility] Provider HEALTH MAINTENANCE Final Result documented in this encounter Visit Diagnoses Not on filedocumented in this encounter Additional Health Concerns Assessment Noted Time PHQ-9 Depression Total Score: 0 08/24/19 23 2:52 PM EDT documented as of this encounter Care Teams Lead Retail Sales Associate Relationship Specialty Start Date End Date Rogelio Yadav MD [address] [place] [address] PCP - General Internal Medicine 07/31/19 documented as of this encounter
--- OUTSIDE RECORDS SUMMARY | 2024-10-19 11:50 | XMS_ITS | Clinical Summary ---
Author Organization [facility] Address [address] [place] [address] Care Team Providers Care Hub Lead Name Role Phone Unavailable Primary Care Provider [...] Vaccines (1 of 2) 05/25/2015 COVID-19 Vaccine (1 - 2023-2 5 season) 2023 Depression Screening 03/14/2024 Influenza Vaccine (#1) 2024 RSV Immunization Adult Patie nts (1 [...]
== END 2024-10-19 11:49 | disposition home or self-care (01) ==
LOC: HO.CHCLDS 11:48
PROVIDERS: Visit Provider Internal Medicine
DX: E03.9 Hypothyroidism, unspecified (principal)
CPT/HCPCS: 36415; 84443

== ENCOUNTER 2024-11-29 08:26 | Outpatient (AMB) | payer OTHER, SELFPAY ==
--- OUTSIDE RECORDS SUMMARY | 2024-04-06 06:40 | XMS_ITS ---
Author Organization [facility] Address [address] [place] [id number] Care Team Providers Care Tool Grinder Name Role Phone Kylie jimenez, Rogelio Primary Care Prov Jessee Cheney [phone] REASON FOR VISIT hx polyps,hx colon ca Encounters Encounter Location Date Provider Diagnosis [facility] [place] [address] [place] [phone] 04/06/2024 Jessee Bear Colon cancer [place] [...] * KEITH BETHANY ADOB:1965 (59 yo M)Acc No.[id number]:04/06/2024 COLON WITH MAC Patient: BETHANY HE Provider: Gray Bear MD :1965 A ge:58 Y S ex:Male Date:04/06/2024 Address:[address] [place], [place] [phone] Pcp:Rogelio cameron md Subjective: * Chief Complaints: * 1 . Hx polyps,hx colon ca. * Medical History: Objective: * Vitals: Assessment: * Assessment: 1. C olon cancer screening - Z12.11 (Primary) 2 . H istory of colon cancer - Z85.038 3 . D iverticulosis of colon - K57.30 4 . H x of Billroth II operation - Z98.0 Plan: * Treatment: * Procedure Codes: 4 5378 DIAGNOSTIC COLONOSCOPY, Modifiers: 33 * * The named appointment provid er may or may not be the originator of this progress note, and it is not deemed complete until electronically signed by the appointment provider. Sign off status: Pending * Provider: Gray Bear MD Date: 0 04/06/2024 Generated for Matt connor/Chad/Tusharitting on: 0 11/29/2024 09:31 AM EDT
--- NOTE | 2024-11-29 08:44 | A.OFFVIS_ITS ---
Vital Signs 11/29/24 08:51 Height 5 ft 6 in Weight 182 lb 8.684 oz BMI 29.5 BP 134/80 Blood Pressure Location Lt brachial Position Sitting Pulse 84 Pulse Oximetry (%) 97 Oxygen Delivery Method Room Air Intake Visit Reasons: follow up Intake Note: Patient presents for Fibromyalgia follow up. Embroidery Machine Operator Required: Yes Embroidery Machine Operator Language: Writing Manager Services: Embroidery Machine Operator Present Embroidery Machine Operator Name: Joaquín [id number] Information Interpreted: non-clinical & clinical Allergies No Known Allergies Allergy (Mild, Verified 11/29/24 08:50) NKA Medication List - Last Reconciled 11/29/24 by Maria T Robles MD amlodipine 10 mg PO DAILY arm brace (Wrist Brace) use at night as directed blood pressure test kit-large As directed ibuprofen 800 mg PO TID 30 days levothyroxine 125 mcg PO DAILY HPI Comments Details: Patient is a 59-year-old male with hypertension, hypothyroidism, polyarticular osteoarthritis and fibromyalgia here today for follow up Interval History: Patient last seen 08/16/24 with me - Not on any rheum medications - Patient states the injections did not help - Still with bilateral shoulder pain R>L - Unable to raise his hand above his head - MR ordered Today - Not on any rheum medications - Did not get the MR done, but states that his shoulders are better - Now complaining of whole body pain Rheumatologic History: Diagnosed with fibromyalgia and osteoarthritis Has a positive RF but no evidence of inflammatory arthritis on examination Gabapentin - prescribed by PCP but does not feel it helped Baclofen - did not help Current Rheumatology Medication(s): [facility] Medical History Colon cancer Osteoarthritis of shoulders, bilateral Elevated uric acid in blood Decreased ROM of right shoulder Chronic right shoulder pain Hx of pilonidal cyst Rheumatoid arthritis Polycythemia Colon cancer Hx of drug abuse Hypothyroidism Hepatitis C Polyarthralgia Surgical History History of knee replacement procedure of left knee History of left knee replacement Hx of colonoscopy Hx of colonoscopy with polypectomy History of colon resection (~12/2021) Hx of skin graft Hx of dilation of urethra Family History Father Esophageal cancer Mother Uterine cancer Social History Household Members: Family Housing: House Are you a primary critical care specialist to a significant other at home: No Do you presently have visiting nurse or other home services: No Alcohol intake: current Alcohol intake frequency: holidays/special occasions only Patient Tobacco Use Status: Never used Tobacco Substance Use Type: Marijuana service: No Current occupational status: employed 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 Review of Systems Const Details: Review of Systems Constitutional: Denies fever, chills, weight loss ENT: Denies vision changes, eye pain or eye redness, dental caries, dry mouth GI: Denies nausea, vomiting, diarrhea, abdominal pain, change in BM Pulm: Denies SOB, PEREIRA, hemoptysis, wheezing Cards: Denies chest pain, palpitations Skin: Denies Raynaud's, rash, nail changes, photosensitivity, CLOTH LAYER: Denies headaches, weakness, paresthesias, recurrent falls MSK: as per HPI All other systems reviewed and are unremarkable except noted above Physical Exam Exam Exam: Vital signs reviewed Physical Examination CONSTITUITIONAL Patient alert and cooperative. Well appearing and in no apparent painful distress MSK Hands * Right Hand: Able to make a fist. No swelling or tenderness to palpation of the MCPs, PIPs or DIPs. * Left Hand: Able to make a fist. No swelling or tenderness to palpation of the MCPs, PIPs or DIPs. * Herbedens and Bouchards nodes noted bilaterally Wrists * Right Wrist: Full ROM to flexion and extension. No swelling or TTP * Left Wrist: Full ROM to flexion and extension. No swelling or TTP Elbows * Right Elbow: Full ROM. No swelling or TTP. No TTP of the medial epicondyle. No TTP of the lateral epicondyle * Left Elbow: Full ROM. No swelling or TTP. No TTP of the medial epicondyle. No TTP of the lateral epicondyle Shoulders * Right shoulder: Full ROM. No swelling noted. No TTP of the AC joint. No TTP of the subacromial bursa. No TTP of the posterior shoulder * Left shoulder: Full ROM. No swelling noted. No TTP of the AC joint. No TTP of the subacromial bursa. No TTP of the posterior shoulder Hips * Right hip: Good ROM. No pain elicited with hip flexion/internal rotation/external rotation * Left hip: Good ROM. No pain elicited with hip flexion/internal rotation/external rotation Hip bursa: TTP bilaterally Knees * Right knee: Full ROM. No swelling noted. No TTP of the knee joint line. TTP of pes anserine bursa * Left knee: Full ROM. No swelling noted. No TTP of the knee joint line. TTP of pes anserine bursa. * Crepitations felt bilaterally Ankles * Right ankle: Good ankle dorsiflexion and plantar flexion. No swelling. No TTP of the ankle joint * Left ankle: Good ankle dorsiflexion and plantar flexion. No swelling. No TTP of the ankle joint Feet * Right foot: Negative squeeze test * Left foot: Negative squeeze test Tender points? * Tenderness to palpation of the bilateral trapezius, supraspinatus, anterior costochondral junctions, bilateral suboccipital muscle insertions SKIN No rashes Vital Signs: Last Vital Signs Pulse 84 11/29/24 08:51 BP 134/80 11/29/24 08:51 Pulse Ox 97 11/29/24 08:51 Oxygen Delivery Method Room Air 11/29/24 08:51 BMI result Body Mass Index 29.5 Results Reviewed Results Reviewed: XR L Spine 04/2022 FINDINGS: Vertebral body heights are normal. At L3-L4 and L4-L5, there is a 3 mm retrolistheses. At L5-S1, there is moderately severe degenerative disc disease. No acute fracture or spondylolisthesis is seen. There is multi-level thoracolumbar spondylosis. The posterior elements are intact. There is degenerative disc disease at L5-S1. There are aortic atherosclerotic calcifications. IMPRESSION: 1. There is mild degenerative disc disease at L3-L4 and L4-L5, and moderately severe degenerative disc disease is seen at L5-S1. 2. There is multi-level thoracolumbar spondylosis. 3. There is facet arthropathy at L5-S1. MR Hands 01/2021 FINDINGS: In the medial and palmar soft tissues at the level of the thumb proximal phalangeal shaft, there is an amorphous focus of low T1 signal intensity and intermediate to low T2 signal intensity measuring 2.2 x 2.1 x 2.4 cm (AP x transverse x longitudinal), located primarily within the medial and palmar subcutaneous fat, though also interposed between the flexor tendon and proximal phalanx, extending into the more lateral subcutaneous fat. Surrounding soft tissues are normal in signal intensity. Subtle chronic osseous remodeling is suspected at the palmar cortex of the proximal phalanx (image 20/43 of series 7). No marrow edema signal or other osseous erosions in this region. No tenosynovitis or tendinosis. The A2 mauricio is slightly stretched as result of the mass. Mild osteoarthritis is evident at the 1st CMC joint with marginal osteophytes. MTP joints appear relatively well preserved. At the tuft of the long finger distal phalanx, there is loss of normal T1 signal (image 14/19 of series 6) in the region of the erosions seen on the prior radiograph. No significant abnormality on T2-weighted images in this region. No additional soft tissue lesions are identified at the hand, though sensitivity is somewhat limited by the absence of intravenous contrast. Additional areas of articular involvement would be difficult to exclude as this process does not appear to produce significant surrounding edema signal on T2-weighted images. IMPRESSION: 1. A 2.4 cm amorphous low signal intensity nodular focus in the medial and palmar soft tissues of the thumb at the level of the proximal phalanx, arising around the tendon sheath. This could correspond to a tenosynovial giant cell tumor based both on the location and signal intensity. Specificity is limited without intravenous contrast. A deposition process such as gout is also on the differential. A fibroma of the tendon sheath could also produce this appearance. Consider correlation with tissue sampling. 2. The focal erosion at the soft tissues of the long finger distal phalanx corresponds to a small focus of low signal intensity as well and is also nonspecific, particularly without intravenous contrast. This could correspond to a deposition process such as gout, a small epidermal inclusion cyst, or chronic changes of prior trauma. Assessment & Plan Assessment & Plan (1) Fibromyalgia: Code(s): M79.7 - Fibromyalgia Category: Medical Plan: #Fibromyalgia Patient is a 59-year-old male with fibromyalgia here today for follow up. Baclofen was discontinued at the last visit to try low-dose naltrexone however patient unable to afford the compounding cost of the low-dose naltrexone. Will trial cyclobenzaprine Plan - Trial of cyclobenzaprine - RTC 6 months Plan I spent 20 minutes reviewing the record and labs, taking a history, examining the patient, discussing the treatment plan, ordering diagnostic work up and documenting in the medical record Medications: New cyclobenzaprine 10 mg (2 x 5 mg) PO BEDTIME PRN 180 tabs 1RF muscle spasm M79.7 - Fibromyalgia Coding Level of Care Code Est Pt Level 3 (69923) Diagnoses Fibromyalgia M79.7
[2024-11-29 08:51] VITALS: BP 134/80; PULSE 84; O2SAT 97; BMI 29.5
--- OUTSIDE RECORDS SUMMARY | 2024-11-29 09:31 | XMS_ITS | Encounter Summary ---
Author Organization [employer] [facility] Address [address] [place] [address] [address] [place] [address] Care Team Providers Care Vocational Education Teacher Name Role Phone Rogelio Yadav MD Primary Care Prov ider Encounter Details Date Type Department Care Team (Latest Contact Info) Description 09/22/2018 Abstract [facility] CONVERSIONS Dental, Provider, DDS Social History Tobacco [...] Care Team (Late st Contact Info) Description 01/04/2025 10:30 AM EDT Office Visit [facility] MED & PEDS [address] [place] [address] Rogelio Yadav MD [address] [place] [address] documented as of this encounter Visit Diagnoses Not on filedocumented in this encounter Care Teams Vocational Education Teacher Relationship Specialty Start Date End Date Rogelio Yadav MD [address] [place] [address] PCP - General Internal Medicine 07/31/19 documented as of this encounter
--- OUTSIDE RECORDS SUMMARY | 2024-11-29 09:31 | XMS_ITS | Encounter Summary ---
Author Organization [employer] [facility] Address [address] [place] [address] [address] [place] [address] Care Team Providers Care Balance Wheel Hand Filer Name Role Phone Rogelio Yadav MD Primary Care Prov ider Encounter Details Date Type Department Care Team (Latest Contact Info) Description 01/09/[address] [facility] CONVERSIONS Dental, Provider, DDS Social History [...] Description 01/04/2025 10:30 AM EDT Office Visit [facility] CHC MED & PEDS [address] [place] [address] Rogelio Yadav MD [address] [place] [address] documented as of this encounter Visit Diagnoses Not on filedocumented in this encounter Care Teams Balance Wheel Hand Filer Relationship Specialty Start Date End Date Rogelio Yadav MD [address] [place] [address] PCP - General Internal Medicine 07/31/19 documented as of this encounter
--- OUTSIDE RECORDS SUMMARY | 2024-11-29 09:31 | XMS_ITS | Encounter Summary ---
Author Organization [employer] Address [address] [facility] [address] [place] [address] Care Team Providers Care Negative Checker Name Role Phone Rogelio Yadav MD Primary Care Prov ider Encounter Details Date Type Department Care Team (Late st Contact Info) Description 06/25/2023 Orders Only [facility] [address] [place] [address] ProviderEmerita MD Social History Tobacco Use Types [...] Description 01/04/2025 10:30 AM EDT Office Visit [facility] MED & PEDS [address] [place] [address] Rogelio Yadav MD [address] [place] [address] documented as of this encounter Procedures Procedure Name Priority Date/Time Associated Diagnosis Comments HM COLONOSCOPY Routine 03/17/2021 7:26 AM EST HM COLONOSCOPY Routine 10/15/2019 7:22 AM EDT HM COLONOSCOPY Routine 04/21/2018 7:21 AM EST HM COLONOSCOPY Routine 08/17/2016 7:20 AM EDT documented in this encounter Results * Hm Colonoscopy (03/17/2021 7:26 AM EST) [place] [facility] Provider HEALTH MAINTENANCE Final Result * Hm Colonoscopy (10/15/2019 7:22 AM EDT) [place] [facility] Provider HEALTH MAINTENANCE Final Result * Hm Colonoscopy (04/21/2018 7:21 AM EST) Historical Provider HEALTH MAINTENANCE Final Result * Hm Colonoscopy (08/17/2016 7:20 AM EDT) [place] [facility] Provider HEALTH MAINTENANCE Final Result documented in this encounter Visit Diagnoses Not on filedocumented in this encounter Additional Health Concerns Assessment Noted Time PHQ-9 Depression Total Score: 0 08/24/19 23 2:52 PM EDT documented as of this encounter Care Teams Negative Checker Relationship Specialty Start Date End Date Rogelio Yadav MD [address] [place] [address] PCP - General Internal Medicine 07/31/19 documented as of this encounter
--- OUTSIDE RECORDS SUMMARY | 2024-11-29 09:31 | XMS_ITS | Clinical Summary ---
Author Organization [employer] Address [address] [place] [address] Care Team Providers Care Food Manager Name Role Phone Rogelio Yadav MD Primary Care Prov ider Allergies No known active allergies Medications diclofenac (Voltaren) 75 MG EC tablet TOME MINERVA TABLETA POR V A ORAL DOS VECES AL D A 07/29/2022 Active naproxen (Naprosyn) 500 MG tabletIndicatio ns:Acute pain of right shoulder TOME MINERVA TABLETA DOS VECES AL AIYANA 60 tablet 06/03/2023 Active losartan (Cozaar) 25 MG tablet Take 25 mg by mouth Once per day. Active levothyroxine (Synthroid, Levoxyl) 137 MCG tablet TAKE 1 TABLET BY MOUTH EVERY DAY 90 tablet 1 08/24/2024 Active Active Problems Problem Noted Date Diagnosed Date [...] order new labs for guidance of therapy Social History Tobacco Use Types Packs/Day Years [...] the past 12 months, has t he [employer], gas, oil or water company threatened to [...] 88 11/24/2023 1:44 PM EDT Temperature 36.5 C (97.7 F) 11/24/2023 1:44 PM EDT Respiratory Rate 20 11/24/2023 1:44 PM EDT [...] Description 01/04/2025 10:30 AM EDT Office Visit [facility] CHC MED & PEDS [address] [place], [place] [phone] Rogelio Yadav MD [address] [place] [address] Health Maintenance Due Date Last Done Comments CT Colonography 1965 FIT DNA/Cologuard 1965 FIT 1965 FOBT 1965 Sigmoidoscopy 1965 Disability Screening 1965 Alcohol/Substance Use Screening 1977 Hepatitis A Vaccines (1 of 2 - Risk 2-dose series) 1984 Hepatitis B Vaccines (1 of 3 - 19+ 3-dose series) 1984 Pneumococcal Vaccine: 50+ Years (2 of 2 - PCV) 05/25/2015 07/11/2006 Zoster Vaccines (2 of 2) 12/12/2022 10/17/2022 Depression Screening 08/24/2023 08/23/2022, 08/24/19 23 SDOH Screening 08/24/2023 08/23/2022 Dental Oral Exam 05/28/2024 11/28/2023 Dental Prophylaxis 06/05/2024 12/06/2023 COVID-19 Vaccine ( season) 2024 07/17/2021, 12/16/2020, 05/13/2020, Additional history exists Influenza Vaccine (#1) 2024 , 11/17/2022, 02/03/2022, Additional history exists Dental X-Ray: Bitewings 11/28/2024 11/28/2023 Tobacco Screening 01/12/2025 01/13/2024 Dental X-Ray: Full Mouth 11/28/2026 11/28/2023 Colonoscopy 04/06/2027 04/06/2024, /06/2021, 10/15/2019, Additional history exists Colorectal Cancer Screening 04/06/2027 DTaP/Tdap/Td Vaccines (3 - Td or Tdap) 02/16/2028 02/15/2018, 12/25/2010, 07/11/2006, Additional history exists Lipid Panel 07/26/2029 07/26/2024, 06/12, 08/24/2022, Additional history exists RSV Patients and Patients Aged 60 years or older (1 - 1-dose 75+ series) 2040 HIV Screening Completed 12/29/2020 HIB Vaccines Aged Out No longer eligi [...] Procedure Name Priority Date/Time Associated Diagnosis Comments TSH W/REFLEX TO FT4 Routine 10/19/2024 1 1:49 AM EDT Acquired hypothyroidism LIPID PANEL, STANDARD Routine 07/26/2024 10:45 AM EDT Primary hypertension PROPHYLAXIS - ADULT Routine 12/06/2023 1 1:00 AM EDT Dental calculus Dental plaque INTRAORAL - COMPLETE SERIES OF RADIOGRAPHIC IMAGES Routine 11/28/2023 10:30 AM EDT PERIODIC ORAL EVALUATION - ESTABLISHED PATIENT Routine 11/28/2023 10:30 AM EDT HM COLONOSCOPY Routine 03/17/2021 7:26 AM EST HIV 1/2 ANTIGEN/ANTIBODY, FOURTH GENERATION W/RFL Routine 12/29/2020 11:42 AM EDT from Last 3 Months or Most Recently Relevant to Health Maintenance Results * TSH W/Reflex to FT4 (10/19/2024 11:49 AM EDT) TSH reflex Free T4 0.32 0.32 - 4.0 uIU/mL [facility] Blood Venous blood specimen / Unknown 10/19/2024 11:49 AM EDT 10/19/2024 2:34 PM EDT us Rogelio Marie MD LAB BLOOD ORDERABL ES Final Result [facility] [address] [place] [phone] * (ABNORMAL) Lipid Panel, Standard (07/26/2024 10:45 AM EDT) Triglycerides 96 <150 mg/dL [facility] Comment:Desirable Triglyceri de: less than 150 mg/dLBorderline High Triglyceride 150-199 mg/dLHigh Triglyceride: 200-499 mg/dLVery High Triglyceride: greater than or equal to 5OO mg/dL Cholesterol 179 <200 mg/dL [facility] Comment:Desirable Cholestero l: less than 200 mg/dLBorderline High Cholesterol: 200-239 mg/dLHigh Cholesterol: greater than 239 mg/dL LDL Cholesterol Calculated 122(H) <100 mg/dL [facility] Comment:Desirable LDL: less than 100 mg/dLNear Optimal/Above Optimal LDL: 110- 129 mg/dLBorderline High LDL: 130-159 mg/dLHigh LDL: 160-189 mg/dLVery High LDL: greater than or equal to 190 mg/dL HDL Cholesterol 38(L) >40 mg/dL [facility] Comment:Desirable HDL: great er than 40 mg/dL Note: This HDL assay may give artificially low results in patients with liver disease. Blood Venous blood specimen / Unknown 07/26/2024 10:45 AM EDT 07/26/2024 12:05 PM EDT Rogelio Marie MD LAB BLOOD ORDERABL ES Final Result [facility] [address] [place] [phone] * Hm Colonoscopy (03/17/2021 7:26 AM EST) Historical Provider HEALTH MAINTENANCE Final Result * HIV 1/2 ANTIGEN/ANTIBODY,FOURTH GENERATION W/RFL (12/29/2020 11:42 AM EDT) HIV-1/2 ANTIGEN AND ANTIBODIES, 4TH GENERATION W/ REFLEX NON-REACT ANKUSH NON-REACT ANKUSH [facility] Comment: HIV-1 antigen and HIV-1/HIV-2 antibodies were not detected. There is no laboratory evidence of HIV infection. PLEASE NOTE: This information has been disclosed to you from records whose confidentiality may be protected by state law. If your state requires such protection, then the state law prohibits you from making any further disclosure of the information without the specific written consent of the person to whom it pertains, or as otherwise permitted by law. A general authorization for the release of medical or other information is NOT sufficient for this purpose. For additional information please refer to http://[employer]/faq/HPF734 (This link is being provided for informational/ educational purposes only.) The performance of this assay has not been clinically validated in patients less than 2 years old. 12/29/2020 11:4 2 AM EDT Rogelio Marie MD LAB BLOOD ORDERABL ES Final Result Performing Organization Address City/State/[facility] Co ut Phone Number [facility] [address] from Last 3 Months or Most Recently Relevant to Health Maintenance Insurance HEALTH PLAN DENTAL - HSN PARTIAL (MEDICAID) Care Teams Food Manager Relationship Specialty Start Date End Date Rogelio Yadav MD [address] [place] [phone] PCP - General Internal Medicine 07/31/19
--- OUTSIDE RECORDS SUMMARY | 2024-11-29 09:31 | XMS_ITS | Clinical Summary ---
Author Organization [employer] [facility] [place] Address [address] [place] [address] Care Team Providers Care Mixing Machine Tender Cork Rod Name Role Phone Unavailable Primary Care Provider [...] 05/25/2015 Zoster Vaccines (1 of 2) 05/25/2015 Depression Screening 03/14/2024 COVID-19 Vaccine (1 - 2023-2 5 season) 2024 Influenza Vaccine (#1) 2024 RSV Immunization Adult [...] complete this topic RSV Immunization Patients Un karne 20 months Aged Out No longer eligible b ased on patient's age to complete this topic Varicella Vaccines Aged Out No longer eligible based on patient's age to complete this topic
--- OUTSIDE RECORDS SUMMARY | 2024-11-29 09:31 | XMS_ITS | Patient Health Record ---
Author Organization [facility] Address [address] [place] [phone] Care Team Providers Care Sales Donor Recruitment Representative Name Role Phone Kylie jimenez, Rogelio Primary Care Prov ider Unavailable Jessee Bear Unavailable [phone] Allergies No Known Allergies Results Component Value Reference Range Notes Complete Blood Count Auto Di ff Reviewed date:12/17/2023 11:17:43 PM Interpretation: Performing Lab:[facility], [address] [place] [phone] Notes/Report: White Blood Count 5.2 4.8-10.8 X10*3/uL [...] INR Reviewed date:12/16/2023 04:21:13 PM Interpretation: Performing Lab:[address] [phone] Notes/Report: Prothrombin Time 11.3 10.9-12.4 [employer] [...] Panel Reviewed date:12/16/2023 04:21:04 PM Interpretation: Performing Lab:[address] [phone] Notes/Report: Bilirubin Total 0.8 0.0-1.0 mg/dL Bilirubin Direct 0.3 0.0-0.5 mg/dL Aspartate Amino Transferase 23 5-37 U/L Alanine Aminotransferase 28 0-40 U/L Total Protein 7.4 6.5-8.0 g/dL Albumin Level 4.1 3.5-5.0 g/dL Alkaline Phosphatase 48 39-117 U/L Alpha Fetoprotein Reviewed date:12/23/2023 12:47:18 PM Interpretation: Performing Lab:[address] [phone] Notes/Report: Alpha Fetoprotein 2.1 <6.1 ng/mL This test was performed using the [employer] chemiluminescent method. Values obtained from different assay methods cannot be used interchangeably. AFP levels, regardless of value, should not be interpreted as absolute evidence of the presence or absence of disease. THIS TEST WAS PERFORMED AT: [facility] [employer] [facility] [address] [place] [phone] STUART TREVINO MD Liver Fibrosis Pnl Reviewed date:12/25/2023 10:06:16 PM Interpretation: Performing Lab:[facility], [address] [place] [phone] Notes/Report: Liver Fibrosis Score 0.48 Liver Fibrosis [...] a>0.62 and a<=1.00 : A3 (severe activity) XSG-Seuor-6-Macroglobulin 310 106-279 mg/dL FIB-Haptoglobin 118 43-212 mg/dL FIB-Apolipoprotein A1 141 94-176 mg/dL FIB-Total Bilirubin 0.6 0.2-1.2 mg/dL FIB-GGT 20 3-85 U/L FIB-ALT 25 9-46 U/L Reference ID [id number] Footnote SEE NOTE The reliability of results [...] The performance characteristics have been determined by [facility]. It has not been cleared or approved by the U.S. Food and Drug Administration. Performance characteristics refer to the analytical performance of the test. [employer], the associated logo, [employer] and all associated [employer] pitts are the registered trademarks of [employer]. All third republican pitts - (R) and (TM) - are the property of their respective owners. (C) 3377-9574 [employer]. All rights reserved. THIS TEST WAS PERFORMED AT: [employer] [facility] [address] [place] [address] IGOR TANG MD,PHD,CONNOR US abdomen comp w elastograp hy Reviewed date:04/05/2024 05:29:56 PM Interpretation: Performing Lab: Notes/Report: [address] [address] Ultrasound Report Signed Patient: Jose Manuel Webb MR#: [id number] 4 : 1965 Acct:[id number] Age/Sex: 58 / M ADM Date: 12/16/23 Loc: HO.US Attending Dr: Jessee Bear MD Ordering Physician: Jessee Bear MD Date of Service: 12/16/23 Procedure(s): US abdomen comp w elastography Accession Number(s): [id number] cc: Rogelio Yadav MD; Jessee Bear MD [...] by: Grey Canas MD 02/16/2024 10:57 PM [facility] Dictated By: Grey Canas MD Signed By: <Electronically signed by Grey Canas MD in OV> 02/16/24 2257 DD/ 7 TD/TT: 12/16/23 0947 Pit Recorder: HARSHAL Drug Screen Urine Reviewed date:04/06/2024 05:07:04 PM Interpretation: Performing Lab:[facility], [address] [place] [phone] Notes/Report: Opiate Screen Urine Not Detected Not [...] Problem Status W/U Status Risk Notes Problem [id number] Encounter for screening for malignant neoplasm of colon (Z12.11) Active confirmed Problem 846419102 History of adenomatous polyp of colon (Z86.010) Active confirmed Problem Screening for malignant neoplasm of rectum (764835402) Encounter for screening for malignant neoplasm of rectum (Z12.12) Active confirmed Problem History of gastrointestinal tract bypass (221734751) Intestinal bypass and anastomosis status (Z98.0) Active confirmed Problem 797154818 Elevated liver function tests (R79.89) Active confirmed Problem 439161641 Chronic hepatiti s C without hepatic coma (B18.2) Active confirmed Problem 378395569 Elevated liver enzymes (R74.8) Active confirmed Problem 077669824 Fatty liver (K76.0) Active confirmed Problem 211630751 History of colon cancer (Z85.038) Active confirmed Problem 68614407 Constipation, unspecified constipation type (K59.00) Active confirmed Problem History of malignant neoplasm of colon (064647823) Personal history of colon cancer (Z85.038) Active confirmed Problem 98594638358754 History of hepatitis C (Z86.19) Active confirmed Problem Cirrhosis - non-alcoholic (858521097) Liver fibrosis (K74.0) Active confirmed Problem Diverticulosis of colon (461321629) Diverticulosis of colon (K57.30) Active confirmed Problem 20648201 Liver fibrosis (K74.00) Active confirmed Vital Signs Blood pressure diastolic 00 mm Hg 12/06/2023 Height 66.25 in 12/06/2023 Blood pressure systolic 00 mm Hg 12/06/2023 Weight 176 lbs 12/06/2023 BMI 28.19 kg/m2 12/06/2023 Encounters Encounter Location Date Provider Diagnosis [facility] [address] [address] [place], [place] [phone] 04/06/2024 Jessee Bear Colon cancer screeni ng Z12.11 ; History of colon cancer Z85.038 ; Diverticulosis of colon K57.30 and 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 [facility] [address] [place] [phone] 12/06/2023 Jessee Bear History of hepatitis C Z86.19 ; Liver fibrosis K74.00 ; Personal history of colon cancer Z85.038 and History of adenomatous polyp of colon Z86.010 [facility] [address] [place] [phone] 12/06/2023 Jessee Bear Assessments Encounter Date Diagnosis [...] Test Test Name Order Date LIVER PROFILE 08/05/2022 LIVER PROFILE 02/29/2012 LIVER PROFILE 12/06/2023 LIVER PROFILE 02/20/2021 LIVER PROFILE 07/31/2013 LIVER PROFILE 09/05/2019 CBC w DIFF 02/20/2021 CBC w DIFF 07/31/2013 CBC w DIFF 08/05/2022 CBC w DIFF 12/06/2023 CBC with MANUAL DIFFERENTIAL 09/05/2019 PROTHROMBIN TIME (PT, INR) 07/31/2013 PROTHROMBIN TIME (PT, INR) 09/05/2019 ALPHA-FETOPROTEIN,TUMOR MARKER 1 ALPHA-FETOPROTEIN,TUMOR MARKER 4 ALPHA-FETOPROTEIN,TUMOR MARKER 0 ALPHA-FETOPROTEIN,TUMOR MARKER 2 ALPHA-FETOPROTEIN,TUMOR MARKER 6 ALPHA-FETOPROTEIN,TUMOR MARKER 4 HEPATITIS C VIRAL LOAD 02/20/2021 HCV LIVER FIBROSIS, FIBRO TEST 4 HCV LIVER FIBROSIS, FIBRO TEST 3 HCV LIVER FIBROSIS, FIBRO TEST 1 US ABDOMEN COMP WITH ELASTOGRAPHY 2022 Prothrombin [...] Insured Coverage Start Date Coverage End Date [facility] [employer] [facility] [address] [address] [place], [place] [phone] [id number] JOSE MANUEL WEBB Self - patient is [...] remained nondetectable in 02/2015, 11/2018, 02/2021. Denies IL,DM,CVA,Lung disease,renal dise ase 2 > 2cm tubular [...]
== END 2024-11-29 09:33 | disposition home or self-care (01) ==
LOC: HO.RHES 08:27
PROVIDERS: PCP Internal Medicine; Visit Provider Student in an Organized Health Care Education/Training Program
DX: M79.7 Fibromyalgia (principal)
CPT/HCPCS: 99213

== ENCOUNTER → 2024-11-29 08:26 | Outpatient (BNVA) | payer OTHER, SELFPAY | PROVIDERS: PCP Internal Medicine; Visit Provider Student in an Organized Health Care Education/Training Program | DX: M79.7 Fibromyalgia (principal) | CPT/HCPCS: 99212 ==

== ENCOUNTER 2025-02-15 09:46 | Outpatient (AMB) | payer OTHER, SELFPAY ==
--- NOTE | 2025-02-15 10:05 | A.OFFVIS_ITS ---
Vital Signs 02/15/25 10:11 Height 5 ft 6 in Weight 186 lb 8.177 oz BMI 30.1 BP 142/90 H Blood Pressure Location Lt brachial Position Sitting Pulse 62 Pulse Source Pulse Oximeter Pulse Oximetry (%) 98 Oxygen Delivery Method Room Air Intake Visit Reasons: follow up Intake Note: Patient presents today for Fibromyalgia follow up. Copy Technician Required: Yes Copy Technician Language: [employer] Operator Services: Copy Technician Present Copy Technician Name: Joyce [id number] Information Interpreted: non-clinical & clinical Accompanied by: Self / Same As Patient Allergies No Known Allergies Allergy (Mild, Verified 02/15/25 10:10) NKA Medication List - Last Reconciled 02/15/25 by Maria T Robles MD amlodipine 10 mg PO DAILY arm brace (Wrist Brace) use at night as directed blood pressure test kit-large As directed ibuprofen 800 mg PO TID 30 days levothyroxine 125 mcg PO DAILY HPI Comments Details: Patient is a 59-year-old male with hypertension, hypothyroidism, polyarticular osteoarthritis and fibromyalgia here today for follow up Interval History: Patient last seen 11/29/24 with me - Not on any rheum medications - Did not get the MR done, but states that his shoulders are better - Now complaining of whole body pain - Started cyclobenzaprine for muscle spasms Today - Not on any rheum medications - Did not feel the cyclobenzaprine was helpful - Also does not feel the ibuprofen has been helpful as well Rheumatologic History: Diagnosed with fibromyalgia and osteoarthritis Has a positive RF but no evidence of inflammatory arthritis on examination Gabapentin - prescribed by PCP but does not feel it helped Baclofen - did not help Cyclobenzaprine - not helpful Current Rheumatology Medication(s): [facility] Medical History Colon cancer Osteoarthritis of shoulders, bilateral Elevated uric acid in blood Decreased ROM of right shoulder Chronic right shoulder pain Hx of pilonidal cyst Rheumatoid arthritis Polycythemia Colon cancer Hx of drug abuse Hypothyroidism Hepatitis C Polyarthralgia Surgical History History of knee replacement procedure of left knee History of left knee replacement Hx of colonoscopy Hx of colonoscopy with polypectomy History of colon resection (~12/2021) Hx of skin graft Hx of dilation of urethra Family History Father Esophageal cancer Mother Uterine cancer Social History Household Members: Family Housing: House Are you a primary health care social worker to a significant other at home: No Do you presently have visiting nurse or other home services: No Alcohol intake: current Alcohol intake frequency: holidays/special occasions only Patient Tobacco Use Status: Never used Tobacco Substance Use Type: Marijuana service: No Current occupational status: employed 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 Review of Systems Narrative as per [facility] Physical Exam Exam Exam: Vital signs reviewed Physical Examination CONSTITUITIONAL Patient alert and cooperative. Well appearing and in no apparent painful distress MSK Hands * Right Hand: Able to make a fist. No swelling or tenderness to palpation of the MCPs, PIPs or DIPs. * Left Hand: Able to make a fist. No swelling or tenderness to palpation of the MCPs, PIPs or DIPs. * Herbedens nodes noted bilaterally Wrists * Right Wrist: Full ROM to flexion and extension. No swelling or TTP * Left Wrist: Full ROM to flexion and extension. No swelling or TTP Elbows * Right Elbow: Full ROM. No swelling or TTP. TTP of the medial epicondyle. TTP of the lateral epicondyle * Left Elbow: Full ROM. No swelling or TTP. TTP of the medial epicondyle. TTP of the lateral epicondyle Shoulders * Right shoulder: Full ROM. No swelling noted. No TTP of the AC joint. No TTP of the subacromial bursa. No TTP of the posterior shoulder * Left shoulder: Full ROM. No swelling noted. No TTP of the AC joint. No TTP of the subacromial bursa. No TTP of the posterior shoulder Hip bursa:TTP bilaterally Knees * Right knee: Full ROM. No swelling noted. No TTP of the knee joint line. No TTP of pes anserine bursa * Left knee: Full ROM. No swelling noted. No TTP of the knee joint line. No TTP of pes anserine bursa. * Crepitations felt bilaterally Ankles * Right ankle: Good ankle dorsiflexion and plantar flexion. No swelling. No TTP of the ankle joint * Left ankle: Good ankle dorsiflexion and plantar flexion. No swelling. No TTP of the ankle joint Feet * Right foot: Negative squeeze test * Left foot: Negative squeeze test Tender points? * Tenderness to palpation of the bilateral trapezius, supraspinatus, anterior costochondral junctions, bilateral suboccipital muscle insertions SKIN No rashes Vital Signs: Last Vital Signs Pulse 62 02/15/25 10:11 BP 142/90 H 02/15/25 10:11 Pulse Ox 98 02/15/25 10:11 Oxygen Delivery Method Room Air 02/15/25 10:11 BMI result Body Mass Index 30.1 Results Reviewed Results Reviewed: Laboratory Tests 02/01/18 04/21/18 04/07/23 10:00 10:31 11:35 WBC RBC Hgb Hct Plt Count ESR 8 Sodium Potassium Chloride Carbon Dioxide BUN Creatinine Total Bilirubin Direct Bilirubin AST ALT Alkaline Phosphatase C-Reactive Protein < 0.10 Rheumatoid Factor 20.2 H Cycl Citrul Peptide IgG <16 FANY Screen Negative 11/23/23 12/16/23 07/26/24 10:58 08:57 10:45 WBC 5.2 4.3 L RBC 5.13 5.25 Hgb 14.9 15.2 Hct 44.2 45.4 Plt Count 122 L 130 L ESR Sodium 139 141 Potassium 3.8 4.0 Chloride 108 109 H Carbon Dioxide 23 24 BUN 23 H 21 H Creatinine 0.92 0.87 Total Bilirubin 0.8 Direct Bilirubin 0.3 AST 23 31 ALT 28 37 Alkaline Phosphatase 48 C-Reactive Protein Rheumatoid Factor Cycl Citrul Peptide IgG FANY Screen Assessment & Plan Assessment & Plan (1) Fibromyalgia: Code(s): M79.7 - Fibromyalgia Category: Medical Plan: #Fibromyalgia Patient is a 59-year-old male with fibromyalgia here today for follow up. failed gabapentin, cyclobenzaprine and baclofen we will try meloxicam Plan - Meloxicam 15mg daily - RTC 6 months Plan I spent 20 minutes reviewing the record and labs, taking a history, examining the patient, discussing the treatment plan, ordering diagnostic work up and documenting in the medical record Medications: New meloxicam 15 mg PO DAILY 90 tabs 1RF M79.7 - Fibromyalgia Discontinued ibuprofen Discontinued Reason: Doctor's Order 800 mg PO TID 30 days 270 tabs 1RF M19.011 - Primary osteoarthritis, right shoulder, M19.012 - Primary osteoarthritis, left shoulder Coding Level of Care Code Est Pt Level 3 (94557) Diagnoses Fibromyalgia M79.7
[2025-02-15 10:11] VITALS: BP 142/90; PULSE 62; O2SAT 98; BMI 30.1
== END 2025-02-15 10:58 | disposition home or self-care (01) ==
LOC: HO.RHES 09:47
PROVIDERS: PCP Internal Medicine; Visit Provider Student in an Organized Health Care Education/Training Program
DX: M79.7 Fibromyalgia (principal)
CPT/HCPCS: 99213

== ENCOUNTER → 2025-02-15 09:46 | Outpatient (BNVA) | payer OTHER, SELFPAY | PROVIDERS: PCP Internal Medicine; Visit Provider Student in an Organized Health Care Education/Training Program | DX: M79.7 Fibromyalgia (principal); M25.611 Stiffness of right shoulder, not elsewhere classified; M19.011 Primary osteoarthritis, right shoulder; M19.012 Primary osteoarthritis, left shoulder; Z79.899 Other long term (current) drug therapy | CPT/HCPCS: 99212 ==

== ENCOUNTER 2025-03-12 08:49 | Outpatient (REF) | payer OTHER, SELFPAY ==
--- OUTSIDE RECORDS SUMMARY | 2024-04-06 05:40 | XMS_ITS ---
Author Organization [facility] Address [address] [place] [id number] Care Team Providers Care Catapult And Arresting Gear Officer Name Role Phone Kylie jimenez, Rogelio Primary Care Prov Jessee Cheney [phone] REASON FOR VISIT hx polyps,hx colon ca Encounters Encounter Location Date Provider Diagnosis [facility] [place] [place] [address] [place] [phone] 04/06/2024 Jessee Bear Colon cancer [place] Z12.11 ; History of colon cancer Z85.038 ; Diverticulosis of colon K57.30 and 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 Assessments Encounter Date Diagnosis (ICD Code) Assessment Notes Treatment Notes Treatment Clinical Notes Section Notes 04/06/2024 Colon cancer screening (ICD-10 - Z12.11) 04/06/2024 History of colon cancer (ICD-10 - Z85.038) 04/06/2024 Diverticulosis of colon (ICD-10 - K57.30) 04/06/2024 Hx of Billroth II operation (ICD-10 - Z98.0) Plan Of Treatment No Information Progress Notes * KEITH BETHANY ADOB:1965 (59 yo M)Acc No.[id number]:04/06/2024 COLON WITH MAC Patient: BETHANY HE Provider: Gray Bear MD :1965 A ge:58 Y S ex:Male Date:04/06/2024 Address:[address] [place], [place] [phone] Pcp:Rogelio cameron md Subjective: * Chief Complaints: * H x polyps,hx colon ca Assessment: * Assessment: 1. C olon cancer screening - Z12.11 (Primary) 2 . H istory of colon cancer - Z85.038 3 . D iverticulosis of colon - K57.30 4 . H x of Billroth II operation - Z98.0 Plan: * Procedure Codes: 4 5378 DIAGNOSTIC COLONOSCOPY, Modifiers: 33 Billing Information: * Procedure Codes: 98591 DIAGNOSTIC COLONOSCOPY. Modifiers: 33 * The named appointment provid er may or may not be the originator of this progress note, and it is not deemed complete until electronically signed by the appointment provider. Sign off status: Pending * Provider: Gray Bear MD Date: 0 04/06/2024 Generated for Matt connor/Chad/Micasmitting on: 10:46 AM EST
--- NOTE | 2025-03-12 08:52 | EMG_ITS ---
Chief complaint: Pain in hands Referred by: Carlos Alberto Bell MD Procedure done: NCS and EMG of bilateral upper extremity Bilateral median and ulnar motor studies were performed. Bilateral median and ulnar mixed sensory and radial sensory studies were performed and needle examination was performed. Findings: Bilateral median motor distal latencies were moderately prolonged. Bilateral median mixed distal latencies were also moderately prolonged with moderate slowing of conduction velocity. On ulnar side, there was moderate slowing across elbow for both motor studies. Impression: 1. [id number] bilateral median neuropathy across carpal tunnel 2. Mild bilateral ulnar neuropathy across cubital tunnel [place] [address] [facility]2 [facility]
--- OUTSIDE RECORDS SUMMARY | 2025-03-12 10:46 | XMS_ITS | Encounter Summary ---
Author Organization [employer] Address [address], [place] [address] Care Team Providers Care Radio Repairer Name Role Phone Rogelio Yadav MD Primary Care Prov ider Encounter Details Date Type Department Care Team (Latest Contact Info) Description 09/22/2018 Abstract [facility] CONVERSIONS Dental, Provider, DDS Social History [...] Care Team (Late st Contact Info) Description 07/22/2025 11:00 AM EDT Office Visit [facility] OPTOMETRY [address] [place] [address] FlorentinoImelda, OD [address] [place] [address] documented as of this encounter Visit Diagnoses Not on filedocumented in this encounter Care Teams Radio Repairer Relationship Specialty Start Date End Date Rogelio Yadav MD [address] [place] [address] PCP - General Internal Medicine 07/31/19 documented as of this encounter
--- OUTSIDE RECORDS SUMMARY | 2025-03-12 10:46 | XMS_ITS | Clinical Summary ---
Author Organization [employer] Address [address] [facility] [address] [place] [address] Care Team Providers Care Hiv Cts Specialist Name Role Phone Rogelio Yadav MD Primary Care Prov ider Allergies No known active allergies Medications diclofenac (Voltaren) 75 MG EC tablet TOME MINERVA TABLETA POR V A ORAL DOS VECES AL D A 3 Active naproxen (Naprosyn) 500 MG tabletIndicati ons:Acute pain of right shoulder TOME MINERVA TABLETA DOS VECES AL AIYANA 60 tablet 4 Active losartan (Cozaar) 25 MG tablet Take 25 mg by mouth Once per day. Active meloxicam (Mobic) 15 MG tabletIndicati ons:Chronic midline low back pain without sciatica Take 1 tablet (15 mg) by mouth Once per day. 30 tablet 11 5 02/12/20 26 Active tiZANidine (Zanaflex) 4 MG tabletIndicati ons:Chronic midline low back pain without sciatica Take 1 tablet (4 mg) by mouth every 6 (six) hours if needed for muscle spasms. 30 tablet 5 Active levothyroxine (Synthroid, Levoxyl) 137 MCG tablet TAKE 1 TABLET BY MOUTH EVERY DAY 90 tablet 1 5 Active levothyroxine (Synthroid, Levoxyl) 137 MCG tablet TAKE 1 TABLET BY MOUTH EVERY DAY 90 tablet 1 5 02/27/20 25 Discontinued Active Problems Problem Noted Date Diagnosed [...] Encounters Date Type Department Care Team Description 02/23/2025 Refill [facility] [address] [place] [address] Rogelio Yadav MD 02/18/2025 Results Follow-Up [facility] [address] [place] [address] Jeffery Davis MD Vitamin B12 (Cobalamin) and Folate Panel, Serum, Vitamin B6, Plasma, Vitamin B1 (Thiamine), Blood, LC/MS/MS 02/15/2025 Orders Only [facility] [address] [place] [address] Jeffery Davis MD 02/11/2025 1:00 PM EST Office Visit [facility] [address] [place] [address] Jeffery Davis MD Paresthesias (Primary Dx); Pain in both wrists; Bilateral carpal tunnel syndrome; Chronic midline low back pain without sciatica 02/11/2025 Travel 02/04/2025 Telephone [facility] [address] [place] [address] Rogelio Yadav MD Nurse Triage from Last 3 Months Social History Tobacco [...] Sign Reading Time Taken Comments Blood Pressure 158/79 02/11/2025 1:02 PM EST Pulse 72 02/11/2025 1:02 PM EST Temperature 37.2 C (98.9 F) 02/11/2025 1:02 PM EST Respiratory Rate 19 02/11/2025 1:02 PM EST Oxygen Saturation 95% 02/11/2025 1:02 PM EST Inhaled Oxygen Concentration - - Weight 84.8 kg (187 lb) 02/11/2025 1:02 PM EST Height 167.6 cm (5' 6 ) 02/11/2025 1:02 PM EST Body Mass Index 30.18 02/11/2025 1:02 PM EST Plan of Treatment Upcoming Encounters Date Type Department Care Team (Late st Contact Info) Description 07/22/2025 11:00 AM EDT Office Visit [facility] [address] [place] [address] Florentino, Imelda, OD [address] [place] [address] Health Maintenance Due Date Last Done Comments CT Colonography 1965 FIT DNA/Cologuard 1965 FIT 1965 FOBT 1965 Sigmoidoscopy 1965 Disability Screening 1965 Alcohol/Substance Use Screening 1977 Hepatitis A Vaccines (1 of 2 - Risk 2-dose series) 1984 Hepatitis B Vaccines (1 of 3 - 19+ 3-dose series) 1984 Pneumococcal Vaccine: 50+ Years (2 of 2 - PCV) 05/25/2015 07/11/2006 RSV Patients and Patients Aged 60 years or older (1 - Risk 50-74 years 1-dose series) 05/25/2015 Zoster Vaccines (2 of 2) 12/12/2022 10/17/2022 Depression Screening 08/24/2023 08/23/2022, 08/24/19 23 SDOH Screening 08/24/2023 08/23/2022 Dental Oral Exam 05/28/2024 11/28/2023 Dental Prophylaxis 06/05/2024 12/06/2023 COVID-19 Vaccine ( season) 2024 07/17/2021, 12/16/2020, 05/13/2020, Additional history exists Influenza Vaccine (#1) 2024 , 11/17/2022, 02/03/2022, Additional history exists Dental X-Ray: Bitewings 11/28/2024 11/28/2023 Tobacco Screening 02/11/2026 02/11/2025 Dental X-Ray: Full Mouth 11/28/2026 11/28/2023 Colonoscopy 04/06/2027 04/06/2024, 06/2021, 10/15/2019, Additional history exists Colorectal Cancer Screening 04/06/2027 DTaP/Tdap/Td Vaccines (3 - Td or Tdap) 02/16/2028 02/15/2018, 12/25/2010, 07/11/2006, Additional history exists Lipid Panel 07/26/2029 07/26/2024, 06/12, 08/24/2022, Additional history exists HIV Screening Completed 12/29/2020 HIB Vaccines Aged [...] Procedure Name Priority Date/Time Associated Diagnosis Comments VITAMIN B12/FOLATE, SERUM PANEL Routine 02/15/2025 9:14 AM EST VITAMIN B1 (THIAMINE), BLOOD, LC/MS/MS Routine 02/15/2025 9:14 AM EST VITAMIN B6 Routine 02/15/2025 9:14 AM EST LIPID PANEL, STANDARD Routine 07/26/2024 10:45 AM [...] Recently Relevant to Health Maintenance Results * Vitamin B12 (Cobalamin) and Folate Panel, Serum (02/15/2025 9:14 AM EST) Vitamin B12 467 200 - 1,100 pg/mL [facility] Folate, Serum 15.1 ng/mL [facility] Comment: Reference Range Low: <3.4 Borderline: 3.4-5.4 Normal: >5.4 Your request to have a duplicate copy faxed has been acknowledged. Queued to: [id number] 02/15/2025 9:14 AM EST 02/15/2025 9:14 AM EST Narrative [facility] - 02/21/2025 3:57 PM EST FASTING:YES FASTING: YES us Jeffery Davis MD LAB BLOOD ORDERABLES Final Result [facility] [address], [place] [address] [facility] [address] [place] [address] * Vitamin B1 (Thiamine), Blood, LC/MS/MS (02/15/2025 9:14 AM EST) Vitamin B1 (Thiamine), Blood 104 78 - 185 nmol/L [facility] [facility] Comment: Vitamin supplementation within 24 hours prior to blood draw may affect the accuracy of the results. This test was developed and its analytical performance characteristics have been determined by [employer] [facility] [place]. It has not been cleared or approved by the U.S. Food and Drug Administration. This assay has been validated pursuant to the CLIA regulations and is used for clinical purposes. 02/15/2025 9:14 AM EST 02/15/2025 9:14 AM EST [facility] - 02/21/2025 3:57 PM EST FASTING:YES FASTING: YES us Jeffery Davis MD LAB BLOOD ORDERABLES Final Result [address], [facility] [place] [address] [employer]/[facility] [address] [place] [address] * Vitamin B6, Plasma (02/15/2025 9:14 AM EST) Pathologist [facility] Vitamin B6, Plasma 15.6 2.1 - 21.7 ng/mL [employer] [facility] Comment: Vitamin supplementation within 24 hours prior to blood draw may affect the accuracy of the results. This test was developed and its analytical performance characteristics have been determined by [employer] [place] [place]. It has not been cleared or approved by the U.S. Food and Drug Administration. This assay has been validated pursuant to the CLIA regulations and is used for clinical purposes. 02/15/2025 9:14 AM EST 02/15/2025 9:14 AM EST Narrative [facility] - 02/21/2025 3:57 PM EST FASTING:YES FASTING: YES us Jeffery Davis MD LAB BLOOD ORDERABLES Final Result [facility] [address], [place] [address] [facility] [address] [place] [address] * (ABNORMAL) Lipid Panel, Standard (07/26/2024 10:45 AM EDT) Triglycerides 96 <150 mg/dL [facility] Comment:Desirable Triglyceri de: less than 150 mg/dLBorderline High Triglyceride 150-199 mg/dLHigh Triglyceride: 200-499 mg/dLVery High Triglyceride: greater than or equal to 5OO mg/dL Cholesterol 179 <200 mg/dL [facility] Comment:Desirable Cholestero l: less than 200 mg/dLBorderline High Cholesterol: 200-239 mg/dLHigh Cholesterol: greater than 239 mg/dL LDL Cholesterol Calculated 122(H) <100 mg/dL [facility] Comment:Desirable LDL: less than 100 mg/dLNear Optimal/Above Optimal LDL: 110- 129 mg/dLBorderline High LDL: 130-159 mg/dLHigh LDL: 160-189 mg/dLVery High LDL: greater than or equal to 190 mg/dL HDL Cholesterol 38(L) >40 mg/dL [facility] Comment:Desirable HDL: great er than 40 mg/dL Note: This HDL assay may give artificially low results in patients with liver disease. Blood Venous blood specimen / Unknown 07/26/2024 10:45 AM EDT 07/26/2024 12:05 PM EDT us Rogelio Marie MD LAB BLOOD ORDERABL ES Final Result Performing Organization Address City/[facility] [address]/[facility] Co de Phone Number [facility] [address] [place] [phone] * Hm Colonoscopy (03/17/2021 7:26 AM EST) Historical Provider HEALTH MAINTENANCE Final Result * HIV 1/2 ANTIGEN/ANTIBODY,FOURTH GENERATION W/RFL (12/29/2020 11:42 AM EDT) HIV-1/2 ANTIGEN AND ANTIBODIES, 4TH GENERATION W/ REFLEX NON-REACT ANKUSH NON-REACT ANKUSH [facility] Comment: HIV-1 antigen and HIV-1/HIV-2 [...] purpose. For additional information please refer to http://education.ScoreStreak/faq/FCS548 (This link is being provided for informational/ educational purposes only.) The performance of this assay has not been clinically validated in patients less than 2 years old. 12/29/2020 11:4 2 AM EDT Rogelio Marie MD LAB BLOOD ORDERABL ES Final Result Performing Organization Address City/State/[facility] Co de Phone Number [facility] [address] from Last 3 Months or Most Recently Relevant to Health Maintenance [place] [address] [address] HEALTH PLAN DENTAL - HSN PARTIAL (MEDICAID) Care Teams Hiv Cts Specialist Relationship Specialty Start Date End Date Rogelio Yadav MD [address] [place] [phone] PCP - General Internal Medicine 07/31/19
--- OUTSIDE RECORDS SUMMARY | 2025-03-12 10:46 | XMS_ITS | Encounter Summary ---
Author Organization [employer] Address [address] [facility] [address] [place] [address] Care Team Providers Care Informaticist Name Role Phone Rogelio Yadav MD Primary Care Prov ider Encounter Details Date Type Department Care Team ([facility] st Contact Info) Description 02/18/2025 Results Follow-Up [facility] [address] [place], [place] [phone] Jeffery Davis MD [address] [place] [address] Vitamin B12 (Cobalamin) and Folate Panel, Serum, Vitamin B6, Plasma, Vitamin B1 (Thiamine), Blood, LC/MS/MS Social History Tobacco Use Types Packs/Day Years [...] Description 07/22/2025 11:00 AM EDT Office Visit [facility] [address] [place] [address] Florentino, Imelda, OD [address] [place] [address] documented as of this encounter Visit Diagnoses Not on filedocumented in this encounter Additional Health Concerns Assessment Noted Time PHQ-9 Depression Total Score: 0 08/24/19 23 2:52 PM EDT documented as of this encounter Care Teams Informaticist Relationship Specialty Start Date End Date Rogelio Yadav MD [address] [place] [address] PCP - General Internal Medicine 07/31/19 documented as of this encounter
--- OUTSIDE RECORDS SUMMARY | 2025-03-12 10:46 | XMS_ITS | Clinical Summary ---
Author Organization [employer] [facility] ity Address [address] [place] [address] Care Team Providers Care Project Builder Name Role Phone Unavailable Primary Care Provider [...] Depression Screening 03/14/2024 COVID-19 Vaccine (1 - 2024-2 6 season) 2024 Influenza Vaccine (#1) 2024 RSV [...]
--- OUTSIDE RECORDS SUMMARY | 2025-03-12 10:46 | XMS_ITS | Encounter Summary ---
Author Organization [employer] Address [address] [facility] [address] [place] [address] Care Team Providers Care Supervisor Pipe Manufacture Name Role Phone Rogelio Yadav MD Primary Care Prov ider Encounter Details Date Type Department Care Team (Latest Contact Info) Description 01/09/2021 Abstract [facility] CONVERSIONS Dental, Provider, DDS Social History Tobacco [...] Description 07/22/2025 11:00 AM EDT Office Visit [facility] [address] [place] [address] Florentino, Imelda, OD [address] [place] [address] documented as of this encounter Visit Diagnoses Not on filedocumented in this encounter Care Teams Supervisor Pipe Manufacture Relationship Specialty Start Date End Date Rogelio Yadav MD [address] [place] [address] PCP - General Internal Medicine 07/31/19 documented as of this encounter
--- OUTSIDE RECORDS SUMMARY | 2025-03-12 10:46 | XMS_ITS | Encounter Summary ---
Author Organization [employer] Address [address] [facility] [address] [place] [address] Care Team Providers Care Wood Processing Worker Name Role Phone Rogelio Yadav MD Primary Care Prov ider Encounter Details Date Type Department Care Team (Late st Contact Info) Description 06/25/2023 Orders Only [facility] [address] [place] [address] ProviderEmerita MD Social History Tobacco Use Types [...] Description 07/22/2025 11:00 AM EDT Office Visit [facility] [address] [place] [address] Florentino, Imelda, OD [address] [place], [place] [phone] documented as of this encounter Procedures Procedure [...] * Hm Colonoscopy (10/15/2019 7:22 AM EDT) [facility] Provider HEALTH MAINTENANCE Final Result * Hm Colonoscopy (04/21/2018 7:21 AM EST) [facility] Provider HEALTH MAINTENANCE Final Result * Hm Colonoscopy (08/17/2016 7:20 AM EDT) Historical Provider HEALTH MAINTENANCE Final Result documented in this encounter Visit Diagnoses Not on filedocumented in this encounter Additional Health Concerns Assessment Noted Time PHQ-9 Depression Total Score: 0 08/24/19 23 2:52 PM EDT documented as of this encounter Care Teams Wood Processing Worker Relationship Specialty Start Date End Date Rogelio Yadav MD [address] [place] [address] PCP - General Internal Medicine 07/31/19 documented as of this encounter
--- OUTSIDE RECORDS SUMMARY | 2025-03-12 10:46 | XMS_ITS | Patient Health Record ---
Author Organization [facility] Address [address] [place] [address] Care Team Providers Care Pharmacy Messenger Name Role Phone Kylie jimenez, Rogelio Primary Care Prov ider Unavailable Chema Jessee Unavailable [phone] Allergies No Known Allergies Results Component Value Reference Range Notes Drug Screen Urine Reviewed date:04/06/2024 05:07:04 PM Interpretation: Performing Lab:[facility], [address] [place] [phone] Notes/Report: Opiate Screen Urine Not Detected Not [...] Diclofenac Sodium Ac tive Metamucil 0.36 GM Capsule 2 capsules wit h 8 ounces of liquid Orally Once or twice a day for constipation; Duration: 30 days 02/20/2021 Active Dulcolax (colon prep) 5 MG Tablet Delayed Release Take two tabs 2 days before the colonoscopy as directed, then take at 3:00 p.m and 7:00p.m. the day before the colonoscopy Orally two tablets two days before the colonoscopy, then two tablets twice a day for one daybefore the colonoscopy; Duration: 2 days 02/27/2021 Active Levothyroxine Sodium 125 MCG Tablet 1 tablet on an empty stomach in the morning Orally Once a day 08/24/2016 Active amLODIPine Besylate 5 MG Tablet TOME 1 TABLETA POR V A ORAL TODOS LOS D FOR 30 DAYS Oral; Duration: 90 Active Meloxicam 15 MG Tablet TOME 1 TABLETA PO R V A ORAL TODOS LOS D Oral; Duration: 30 Active predniSONE 5 MG Tablet Oral; Duration: 15 Active Losartan Potassium 25 MG Tablet 1 tablet Orally Once a day Active MiraLax (colon prep) 17 GM/SCOOP Powder Take Miralax two days before the colonoscopy as directed, then take the Miralax 1 day before the colonoscopy as directed Orally Take the Miralax two days before the colonoscopy as directed, and then begin at 5:00 p.m. the day before the procedure as directed; Duration: 2 days 02/27/2021 Active Gabapentin 300 MG Capsule TOME 1 C PSULA POR V A ORAL DOS VECES AL D A Oral; Duration: 30 Active DULoxetine HCl 30 MG Capsule Delayed Release Particles TAKE 1 CAPSULE (30 MG) BY MOUTH 2 TIMES DAILY. DO NOT CRUSH OR CHEW. Oral; Duration: 30 Active Immunizations Vaccine Route Administration Date Status Comme nts Influenza Unknown 12/19/2017 Administered Influenza Unknown 11/12/2018 Administered Influenza Unknown 11/12/2020 Administered Social History Social History Drugs/Alcohol: Social Info Question Answer Notes Alcohol Screen Did you have a drink containing alcohol in the past year? No Points 0 Interpretation Negative Additional Details Category Social Info Options Details Miscellaneous: Marital status: Occupation: [employer] ouse Section Notes: Denies alcohol and drug use. No sig. alcohol;nonsmoker No sig. alcohol;nonsmoker No sig. alcohol;nonsmoker No sig. alcohol;nonsmoker No sig. alcohol;nonsmoker No sig. alcohol;nonsmoker No sig. alcohol;nonsmoker No sig. alcohol;nonsmoker No sig. alcohol;nonsmoker Problems Problem Type SNOMED Code ICD Code Onset Dates Problem Status W/U Status Risk Notes Problem Screening for malignant neoplasm of colon (680503662) Encounter for screening for malignant neoplasm of colon (Z12.11) Active confirmed Problem History of adenomatous polyp of colon (045558293) History of adenomatous polyp of colon (Z86.010) Active confirmed Problem Screening for malignant neoplasm of rectum (234520516) Encounter for screening for malignant neoplasm of rectum (Z12.12) Active confirmed Problem History of gastrointestinal tract bypass (772479260) Intestinal bypass and anastomosis status (Z98.0) Active confirmed Problem Elevated liver enzymes level (392332765) Elevated liver function tests (R79.89) Active confirmed Problem Chronic hepatitis C (465459309) Chronic hepatitis C without hepatic coma (B18.2) Active confirmed Problem Elevated liver enzymes level (563509894) Elevated liver enzymes (R74.8) Active confirmed Problem Fatty liver (822434712) Fatty liver (K76.0) Active confirmed Problem History of malignant neoplasm of colon (535472308) History of colon cancer (Z85.038) Active confirmed Problem Constipation (15200196) Constipation, unspecified constipation type (K59.00) Active confirmed Problem History of malignant neoplasm of colon (420363893) Personal history of colon cancer (Z85.038) Active confirmed Problem History of hepatitis C (80690664125553) History of hepatitis C (Z86.19) Active confirmed Problem Hepatic fibrosis (disorder) (65181668) Liver fibrosis (K74.0) Active confirmed Problem Diverticulosis of colon (782193259) Diverticulosis of colon (K57.30) Active confirmed Problem Hepatic fibrosis (disorder) (29375950) Liver fibrosis (K74.00) Active confirmed Encounters Encounter Location Date Provider Diagnosis [facility] Outpatient [address] [place] [phone] 04/06/2024 Jessee Bear Colon cancer [place] [...] operation (ICD-10 - Z98.0) Plan Of Treatment Pending Test Test Name Order Date LIVER PROFILE 02/29/2012 LIVER PROFILE 07/31/2013 LIVER PROFILE 09/05/2019 LIVER PROFILE 02/20/2021 LIVER PROFILE 08/05/2022 LIVER PROFILE 12/06/2023 CBC w DIFF 12/06/2023 CBC w DIFF 08/05/2022 CBC w DIFF 02/20/2021 CBC w DIFF 07/31/2013 CBC with MANUAL DIFFERENTIAL 09/05/2019 PROTHROMBIN TIME (PT, INR) 09/05/2019 PROTHROMBIN TIME (PT, INR) 07/31/2013 ALPHA-FETOPROTEIN,TUMOR MARKER 2 ALPHA-FETOPROTEIN,TUMOR MARKER 4 ALPHA-FETOPROTEIN,TUMOR MARKER 6 ALPHA-FETOPROTEIN,TUMOR MARKER 0 ALPHA-FETOPROTEIN,TUMOR MARKER 1 ALPHA-FETOPROTEIN,TUMOR MARKER 4 HEPATITIS C VIRAL LOAD 02/20/2021 HCV LIVER FIBROSIS, FIBRO TEST 1 HCV LIVER FIBROSIS, FIBRO TEST 3 HCV LIVER FIBROSIS, FIBRO TEST 4 US ABDOMEN COMP WITH ELASTOGRAPHY 2022 Prothrombin Time INR 12/06/2023 Prothrombin Time INR 08/05/2022 Prothrombin Time INR 02/20/2021 Alpha Fetoprotein 08/05/2022 US abdomen comp w elastography 4 Future Test Test Name Order Date COLONOSCOPY 04/15/2015 COLONOSCOPY 02/17/2018 COLONOSCOPY 09/05/2019 COLONOSCOPY 02/20/2021 COLONOSCOPY 12/06/2023 Insurance Providers Payer Name Payer Address Payer Phone Subscriber Number Group Number Insured Name Patient Relationship to Insured Coverage Start Date Coverage End Date [employer] [address] [address] [place], [place] [id number] BETHANY PARKER Self - patient is the insured Medical [...] remained nondetectable in 02/2015, 11/2018, 02/2021. Denies [place],DM,CVA,Lung disease,renal dise ase 2 > 2cm tubular [...]
== END 2025-03-12 08:50 | disposition home or self-care (01) ==
LOC: HO.NEURO 08:49
PROVIDERS: PCP Internal Medicine; Visit Provider Internal Medicine
DX: G56.03 Carpal tunnel syndrome, bilateral upper limbs (principal); M79.641 Pain in right hand; M79.642 Pain in left hand
CPT/HCPCS: 95886; 95911

== ENCOUNTER → 2025-03-12 08:52 | Outpatient (BNV) | payer OTHER, SELFPAY | PROVIDERS: PCP Internal Medicine; Visit Provider Psychiatry & Neurology Neurology | DX: G56.03 Carpal tunnel syndrome, bilateral upper limbs (principal) | CPT/HCPCS: 95886; 95911 ==